=== PATIENT | female | born 1935 | race Caucasian/White ===

== ENCOUNTER 2017-02-26 12:35 | Emergency (ER) | payer MEDICARE, OTHER ==
[2017-02-26 13:11] LABS: #Basophils 0.1 thou/uL (0.0-0.2); #Eosinphils 0.4 thou/uL (0.0-0.7); #Lymphocytes 1.8 thou/uL (1.20-3.40); #Monocytes 0.9 thou/uL (0.11-0.59); #Neutrophils 4.8 thou/uL (1.40-6.50); %Eosinophils 5.5 % (0.0-10.0); %Lymphocytes 22.5 % (21.0-51.0); %Monocytes 11.3 % (0.0-10.0); Hematocrit 40.5 % (36.0-47.0); Mean Platelet Volume 6.7 fL (7.4-10.4); Red Blood Cell (RBC) Count 4.37 mill/uL (4.20-5.40); White Blood Cell (WBC) Count 8.1 thou/uL (4.8-10.8)
[2017-02-26 13:47] LABS: Lactic Acid - Sepsis 1.4 mmol/L (0.5-2.2)
[2017-02-26 13:49] LABS: ALT (SGPT) 11 U/L (8-55); AST (SGOT) 22 U/L (5-34); Alkaline Phosphatase 100 U/L (40-150); Anion Gap 16 mmol/L (10-20); BUN (Urea Nitrogen) 12 mg/dL (9.8-20.1); Bilirubin, Total 0.6 mg/dL (0.2-1.2); CK (CPK) 35 U/L (29-168); Calc. Creatinine Clearance 0 mL/min (70-130); Calcium 10.1 mg/dL (7.8-10.44); Carbon Dioxide 29 mmol/L (23-31); Chloride 97 mmol/L (98-107); Estimated GFR-MDRD 72; Globulin 3.2 g/dL (2.4-3.5); Protein, Total 7.4 g/dL (6.0-8.3)
[2017-02-26 13:53] LABS: Troponin I 0.016 ng/mL (< 0.028)
--- NOTE | 2017-02-26 14:05 | RAD ---
PORTABLE AP CHEST: Date: 02/26/17 HISTORY: Weakness and cough. COMPARISON: 10/31/16. FINDINGS: The cardiac silhouette is magnified by projection. Pulmonary vasculature is within normal limits. Viky ngs are clear. Vascular calcifications seen in thoracic aorta. There has been no significant interva l change compared to the prior exam. There is osteopenia. IMPRESSION: No acute cardiopulmonary process. POS: [facility]
[2017-02-26 15:21] LABS: Bilirubin Negative (Negative); Blood, Urine Moderate (Negative); Glucose, Urine (Dipstick) Negative (Negative); Ketone, Urine Negative (Negative); Nitrite Negative (Negative); Protein, Urine (Dipstick) Negative (Neg-Trace); Urobilinogen 0.2 mg/dL (0.2-1.0)
[2017-02-26 15:23] LABS: Bacteria/HPF None Seen HPF (None Seen); Hyaline Casts/LPF 0-3 HYALINE CAST LPF (0-3 Hyaline); Squamous Epithelial 0-3 HPF (0-3); WBC/HPF None Seen HPF (0-3)
== END 2017-02-26 16:50 | disposition home or self-care (01) ==
LOC: ERS 12:35
DX: R53.1 Weakness (principal); I10 Essential (primary) hypertension; I69.351 Hemiplegia and hemiparesis following cerebral infarction affecting right dominant side; J44.9 Chronic obstructive pulmonary disease, unspecified; F32.9 Major depressive disorder, single episode, unspecified; F17.210 Nicotine dependence, cigarettes, uncomplicated; Z85.42 Personal history of malignant neoplasm of other parts of uterus; Z79.899 Other long term (current) drug therapy
CPT/HCPCS: 36415; 51701; 71010; 80053; 81003; 81015; 82553; 83605; 84484; 85025; 87040; 87077; 87149; 93005; 96360; 96361; A4353

== ENCOUNTER 2017-04-17 14:16 | Inpatient (IN) | payer MEDICARE, OTHER ==
[~2017-04-17 14:16] MED LIST: ISOVUE-370 76%-LOCM 1 ML ONE
[2017-04-17 15:14] LABS: #Basophils 0.1 thou/uL (0.0-0.2); #Eosinphils 0.2 thou/uL (0.0-0.7); #Lymphocytes 1.7 thou/uL (1.20-3.40); #Neutrophils 13.9 thou/uL (1.40-6.50); %Basophils 0.7 % (0.0-1.0); %Eosinophils 1.1 % (0.0-10.0); %Lymphocytes 10.2 % (21.0-51.0); %Monocytes 5.6 % (0.0-10.0); Hematocrit 43.2 % (36.0-47.0); Mean Platelet Volume 7.1 fL (7.4-10.4); Red Blood Cell (RBC) Count 4.58 mill/uL (4.20-5.40); White Blood Cell (WBC) Count 16.9 thou/uL (4.8-10.8)
[2017-04-17 15:18] LABS: Bilirubin Negative (Negative); Blood, Urine Negative (Negative); Glucose, Urine (Dipstick) Negative (Negative); Ketone, Urine Negative (Negative); Nitrite Negative (Negative); Protein, Urine (Dipstick) Negative (Neg-Trace)
[2017-04-17 15:20] LABS: Bacteria/HPF None Seen HPF (None Seen); Hyaline Casts/LPF 0-3 HYALINE CAST LPF (0-3 Hyaline); RBC/HPF 0-3 HPF (0-3); Squamous Epithelial 0-3 HPF (0-3)
[2017-04-17 15:40] LABS: ALT (SGPT) 14 U/L (8-55); AST (SGOT) 30 U/L (5-34); Alkaline Phosphatase 102 U/L (40-150); Anion Gap 16 mmol/L (10-20); BUN (Urea Nitrogen) 15 mg/dL (9.8-20.1); Bilirubin, Total 0.9 mg/dL (0.2-1.2); Calc. Creatinine Clearance 0 mL/min (70-130); Calcium 10.1 mg/dL (7.8-10.44); Carbon Dioxide 25 mmol/L (23-31); Chloride 96 mmol/L (98-107); Estimated GFR-MDRD 57; Lipase 23 U/L (8-78); Protein, Total 7.3 g/dL (6.0-8.3)
[2017-04-17] MEDS ORDERED: Ondansetron HCl/PF 4 MG/2 ML Vial ONE (16:15)
[2017-04-17] MEDS ORDERED: Dicyclomine 20 MG TAB ONE (16:42)
--- NOTE | 2017-04-17 17:09 | CT ---
ABDOMEN AND PELVIC CT SCAN WITH IV CONTRAST: HISTORY: An 81-year-old female with abdominal pain, nausea, and vomiting and diarrhea. COMPARISON: 04/09/16. The lung bases are clear. There is generalized aneurysmal dilatation of the descending thoracic aort a and abdominal aorta with a focal aneurysmal dilatation measuring up to 3.8 cm of the inferior abdom inal aorta which is stable from the prior study of 04/09/16. The liver, gallbladder, pancreas, spleen, and adrenal glands are unremarkable. No renal calculus or acute obstruction. Small renal low-attenuation changes, probably small cysts and/or some minimal cortical scarring. There is some abnormal thickening of the colonic wall from the sigmoid including the entire sigmoid colon and left colon and splenic flexure and transverse colon to the level of the hepatic flexure, evidence for nonspecific colitis. This is a new finding when compared to the study. There is some fluid and gas distention in the stomach. Right iliac artery stent. No absc ess or significant abnormal fluid collection. IMPRESSION: Fairly marked diffuse colonic wall thickening involving transverse colon, splenic flexure, left colon , sigmoid colon to the rectosigmoid region with relative sparing of the right colon, evidence for non specific colitis, new from prior study. Stable abdominal aortic aneurysm up to 3.8 cm. No abscess o r abnormal fluid collection within the abdomen or pelvis. Other stable findings from prior study. POS: [facility]
[2017-04-17] MEDS ORDERED: metroNIDAZOLE 500 MG/100 ML BAG ONE (18:49)
[2017-04-17 19:11] LABS: Lactic Acid - Sepsis 1.5 mmol/L (0.5-2.2)
[2017-04-18] MEDS ORDERED: Ondansetron HCl/PF 4 MG/2 ML Vial IVP PRN (02:02)
[2017-04-18] MEDS ORDERED: Acetaminophen 325 MG TAB PO PRN ×2 (02:02→14:16)
[2017-04-18] MEDS ORDERED: Ondansetron ODT 4 MG TAB SL PRN (02:02)
[2017-04-18] MEDS ORDERED: Sodium Chloride 0.9% 1,000 ML IV SCH (02:15)
[2017-04-18] MEDS ORDERED: FLU VACC TS2017-18 (>65YR) 0.5 ML SYRINGE IM ONE (09:00)
[2017-04-18 13:24] LABS: #Basophils 0.1 thou/uL (0.0-0.2); #Eosinphils 0.1 thou/uL (0.0-0.7); #Monocytes 1.1 thou/uL (0.11-0.59); #Neutrophils 12.6 thou/uL (1.40-6.50); %Basophils 0.5 % (0.0-1.0); %Eosinophils 0.6 % (0.0-10.0); %Lymphocytes 12.8 % (21.0-51.0); %Monocytes 6.8 % (0.0-10.0); Hematocrit 31.8 % (36.0-47.0); Mean Platelet Volume 6.6 fL (7.4-10.4); Red Blood Cell (RBC) Count 3.39 mill/uL (4.20-5.40); White Blood Cell (WBC) Count 15.9 thou/uL (4.8-10.8)
[2017-04-18 13:41] LABS: ALT (SGPT) 8 U/L (8-55); AST (SGOT) 17 U/L (5-34); Alkaline Phosphatase 68 U/L (40-150); Anion Gap 9 mmol/L (10-20); BUN (Urea Nitrogen) 13 mg/dL (9.8-20.1); Bilirubin, Total 0.6 mg/dL (0.2-1.2); Calc. Creatinine Clearance 37 mL/min (70-130); Calcium 8.7 mg/dL (7.8-10.44); Carbon Dioxide 23 mmol/L (23-31); Chloride 105 mmol/L (98-107); Estimated GFR-MDRD 76; Globulin 2.1 g/dL (2.4-3.5); Magnesium 1.7 mg/dL (1.6-2.6); Phosphorus 2.4 mg/dL (2.3-4.7); Protein, Total 5.3 g/dL (6.0-8.3)
[2017-04-18] MEDS ORDERED: cloNIDine 0.1 MG TAB PO PRN (14:06)
[2017-04-18] MEDS ORDERED: Nitroglycerin 0.4 MG TAB (25 Tab Bottle) SL PRN (14:06)
[2017-04-18] MEDS ORDERED: Acetaminophen 500 MG TAB PO PRN (14:06)
[2017-04-18] MEDS ORDERED: Mag-Al 1200 mg/1200 mg/30 ML UDCUP PO PRN (14:06)
[2017-04-18] MEDS ORDERED: rOPINIRole HCl 0.25 MG TAB PO SCH (14:15)
[2017-04-18] MEDS: NS 0.9% w/ 20 MEQ KCL 1,000 ML/1,000 ML BAG IV SCH (14:54)
--- NOTE | 2017-04-18 15:04 | HP ---
DATE OF ADMISSION: 04/17/2017 PRIMARY CARE PHYSICIAN: Puma Lewis M.D. PRIMARY BARGE WORKER: Dr. Vaca. CODE STATUS: FULL CODE. SURROGATE DECISION-MAKER: Patient makes her on own decisions with the help of her /family. CHIEF COMPLAINT: Abdominal discomfort with nausea, vomiting, and diarrhea. HISTORY OF PRESENT ILLNESS: Patient is an 81-year-old white female with ischemic colitis in the past , presented to the emergency room with above complaints. Patient currently resides at the assisted l iving facility ([facility]). Over the last 24 hours, patient developed gradual worsening nausea and vomiting along with diarrhea. She also had abdominal discomfort that was more or less generalized, 6/10, without any aggravating o r relieving factor. She had several episodes of vomiting that contained food which she had eaten. S he also had diarrhea that was watery without any blood. She denies any sick contacts, fevers or chil ls. She has a history of ischemic colitis in the past. In the emergency room, initial vital signs showed temperature 98.6, respirations 20, pulse of 99, and blood pressure of 158/76 with O2 saturation of 97% on room air. Her CT scan of the abdomen and pelv is was consistent with diffuse colonic wall thickening involving the transverse colon, splenic flexur e, left colon, sigmoid colon to the rectosigmoid region with relative sparing of the right colon. Sh shanti received IV fluids with ciprofloxacin and Flagyl in the Emergency Room. Her labs were consistent w ith WBC of 16.9 with 82.5% neutrophils. Lactic acid was normal. PAST MEDICAL HISTORY: 1. Ischemic colitis. 2. COPD. 3. Chronic respiratory failure, on home oxygen. 4. History of abdominal aortic aneurysm. 5. Peripheral vascular disease. 6. Anxiety and depression. 7. Mild dementia. 8. Dyslipidemia. 9. Hypertension. 10. Restless legs syndrome. PAST SURGICAL HISTORY: 1. Right femoral stent placement. 2. Hysterectomy. 3. Bilateral eye surgery. 4. Removal of skin cancer. ALLERGIES: Patient is allergic to ALBUTEROL, BUDESONIDE, and FORMOTEROL. CURRENT HOME MEDICATIONS: Patient does not remember any of her home medications. Family to obtain a ccurate list of medications. SOCIAL HISTORY: She continues to smoke on and off up to 3-4 cigarettes a day. She drinks alcohol so cially. No drug use. FAMILY HISTORY: Negative for heart disease or GI malignancies. REVIEW OF SYSTEMS: The following complete review of systems was negative, unless otherwise mentioned in the HPI or below: Constitutional: Weight loss or gain, ability to conduct usual activities. Skin: Rash, itching. Eyes: Double vision, pain. ENT/Mouth: Nose bleeding, neck stiffness, pain, tenderness. Cardiovascular: Palpitations, dyspnea on exertion, orthopnea. Respiratory: Shortness of breath, wheezing, cough, hemoptysis, fever or night sweats. Gastrointestinal: Poor appetite, abdominal pain, heartburn, nausea, vomiting, constipation, or diarr hea. Genitourinary: Urgency, frequency, dysuria, nocturia. Musculoskeletal: Pain, swelling. Neurologic/Psychiatric: Anxiety, depression. Allergy/Immunologic: Skin rash, bleeding tendency. PHYSICAL EXAMINATION: VITAL SIGNS: As discussed above. GENERAL: An 81-year-old female in no apparent distress. Feels generally weak. HEENT: Head is atraumatic, normocephalic. Sclerae are anicteric. Dry mucous membrane, no oral lesi on. NECK: Supple, no JVD appreciated. No carotid bruit. LUNGS: Clear to auscultation bilaterally with scattered rhonchi, no wheezing. HEART: S1 and S2 present. Regular rate and rhythm. No heaves or pulsation. ABDOMEN: Soft, mild generalized tenderness without any rebound or guarding. No costovertebral angle tenderness. EXTREMITIES: No edema or calf tenderness. NEUROLOGIC: Grossly nonfocal, moves all four extremities. PSYCHIATRY: Alert, awake, oriented x3. SKIN: Warm and dry. LYMPH NODES: No palpable lymph nodes in the neck. PERIPHERAL VASCULAR: Radial pulses palpable bilaterally. MUSCULOSKELETAL: No joint swelling or tenderness. LABORATORY DATA AND X-RAY FINDINGS: Lab findings as discussed above. Creatinine was 0.94 with BUN 1 5 and sodium of 133[address] CT scan of the abdomen and pelvis by my review as discussed above. Blood cultu res were sent. EKG by my review showed sinus rhythm with nonspecific ST-T wave changes. IMPRESSION AND PLAN: 1. Sepsis secondary to colitis, suspected ischemic versus infectious. 2. Dehydration. 3. Hyponatremia. 4. Senile dementia. 5. Mild protein calorie malnutrition. 6. Chronic kidney disease stage 2. 7. History of ischemic colitis in the past. 8. Anxiety and depression. 9. Hypertension. 10. Dyslipidemia. 11. Chronic obstructive pulmonary disease. 12. Chronic respiratory failure, on home oxygen. 13. Peripheral vascular disease. 14. History of abdominal aortic aneurysm. 15. Restless legs syndrome. 16. Ongoing tobacco abuse. The patient was counseled. PLAN: The patient will be monitored on the medical floor. Gastroenterology will be consulted. We w ill continue Cipro and Flagyl. We will resume selected home medications. Gentle intravenous hydrati on. Repeat labs in a.m. Plan of care was discussed with the patient. She stated understanding.
[2017-04-18] MEDS: Ipratropium Bromide 2.5 ml Neb NEB SCH ×2 (19:03→23:19)
[2017-04-18] MEDS: Arformoterol 15 MCG/2 ML NEB NEB SCH (19:05)
[2017-04-18] MEDS: Famotidine 20 MG TAB PO SCH (20:15)
[2017-04-18] MEDS: Heparin 5,000 UNITS/ML VIAL SC SCH (20:16)
[2017-04-18] MEDS: rOPINIRole HCl 0.25 MG TAB PO SCH (20:16)
[2017-04-18] MEDS ORDERED: ROPINIROLE HCL 0.25 MG PO SCH (21:00)
[2017-04-18] MEDS: metroNIDAZOLE 500 MG in Premix Bag 1 BAG IVPB SCH (22:59)
[2017-04-19] MEDS: NS 0.9% w/ 20 MEQ KCL 1,000 ML/1,000 ML BAG IV SCH ×2 (01:05→19:44)
--- NOTE | 2017-04-19 01:38 | CON ---
DATE OF CONSULTATION: 04/18/2017 CHIEF COMPLAINT: Abdominal pain. HISTORY OF PRESENT ILLNESS: Ms. Emerson is an 81-year-old woman who has had some lower abdominal pres sure type discomfort over the last week, however, developed more severe sharp pain in the left lower abdomen yesterday. She had nausea and vomiting associated with this yesterday, but no vomiting today . She developed diarrhea with multiple liquidy nonbloody stools per day; however, she is unable to q uantify this further. She has a history of COPD and continues to smoke. She has a history of periph eral vascular disease as well. She had ischemic colitis confirmed by endoscopic findings and biopsie s back in 2011. She is already feeling better after receiving IV fluids in the hospital. PAST MEDICAL HISTORY: Ischemic colitis, COPD, chronic respiratory failure on home oxygen, history of abdominal aortic aneurysm, mild dementia, peripheral vascular disease, dyslipidemia, hypertension. PAST SURGICAL HISTORY: Right femoral stent, hysterectomy, eye surgery, skin cancer removed. FAMILY HISTORY: Negative for GI malignancies. SOCIAL HISTORY: No alcohol or drugs. She smokes a few cigarettes per day. ALLERGIES: ALBUTEROL, BUDESONIDE and FORMOTEROL. HOME MEDICATIONS: Include ropinirole, memantine, sertraline, polyethylene glycol, Spiriva, Zocor, pa ntoprazole, losartan, Brovana, folic acid, clonidine, docusate, tramadol as needed. REVIEW OF SYSTEMS: Negative x10 systems reviewed except as stated in the history of present illness. PHYSICAL EXAMINATION: VITAL SIGNS: Temperature 98.3, pulse 88, blood pressure 175/80. GENERAL: She is in no acute distress. She is awake and alert. HEENT: Eyes have no scleral icterus. Oropharynx is clear without lesions. NECK: No cervical or supraclavicular lymphadenopathy. LUNGS: Clear to auscultation bilaterally. HEART: Regular rate and rhythm. ABDOMEN: Soft. She is tender to palpation throughout the lower abdomen without guarding. Bowel tabatha nds are present. EXTREMITIES: No lower extremity edema. I reviewed her stool in the bedside commode and she has small amount of loose green stool. This was mixed with urine and was unable to be captured for stool studies. LABORATORY DATA: White blood cell count 15.9, hemoglobin 10.4, platelets 211. Her hemoglobin decrea sed from 13.6 on the initial presentation yesterday to 10.4 today after hydration. Creatinine 0.73 d own from 0.94 yesterday, bilirubin 0.6, AST 17, ALT 8, albumin 3.2. IMAGING: CT scan of the abdomen and pelvis showed colon wall thickening involving the transverse, sp lenic flexure, descending, and sigmoid colon. IMPRESSION: Recurrent ischemic colitis. She is clinically improving after hydration. She has no bl eeding associated with this at this point. Her last colonoscopy was in 2011 and showed endoscopic fi ndings with ischemic changes in the same distribution as the thickening noted by the CT now. Biopsie s confirmed ischemic colitis and repeat endoscopy would not be expected to change booth attendant at this time. RECOMMENDATIONS: 1. Stool studies. 2. IV fluids and antibiotics. She is on Cipro and metronidazole now. A 7-day course of antibiotics should be plenty. 3. Continue to follow the trend of her white blood cell count and hemoglobin.
[2017-04-19] MEDS: metroNIDAZOLE 500 MG in Premix Bag 1 BAG IVPB SCH ×3 (05:02→22:47)
[2017-04-19 05:42] LABS: #Eosinphils 0.3 thou/uL (0.0-0.7); #Lymphocytes 1.6 thou/uL (1.20-3.40); #Monocytes 0.7 thou/uL (0.11-0.59); #Neutrophils 6.9 thou/uL (1.40-6.50); %Basophils 0.5 % (0.0-1.0); %Eosinophils 3.2 % (0.0-10.0); %Lymphocytes 16.5 % (21.0-51.0); Hematocrit 30.3 % (36.0-47.0); Mean Platelet Volume 8.2 fL (7.4-10.4); Red Blood Cell (RBC) Count 3.18 mill/uL (4.20-5.40); White Blood Cell (WBC) Count 9.5 thou/uL (4.8-10.8)
[2017-04-19 06:09] LABS: ALT (SGPT) Less than 7 U/L (8-55); AST (SGOT) 18 U/L (5-34); Alkaline Phosphatase 60 U/L (40-150); Anion Gap 5 mmol/L (10-20); BUN (Urea Nitrogen) 6 mg/dL (9.8-20.1); Bilirubin, Total 0.6 mg/dL (0.2-1.2); Calc. Creatinine Clearance 45 mL/min (70-130); Calcium 8.3 mg/dL (7.8-10.44); Carbon Dioxide 26 mmol/L (23-31); Chloride 104 mmol/L (98-107); Estimated GFR-MDRD Greater than 90; Globulin 2.2 g/dL (2.4-3.5); Protein, Total 4.9 g/dL (6.0-8.3)
[2017-04-19] MEDS: Ipratropium Bromide 2.5 ml Neb NEB SCH ×3 (06:20→18:37)
[2017-04-19] MEDS: Arformoterol 15 MCG/2 ML NEB NEB SCH ×2 (06:22→18:38)
[2017-04-19] MEDS: Famotidine 20 MG TAB PO SCH ×2 (08:49→20:13)
[2017-04-19] MEDS: Cyanocobalamin (Vitamin B-12) 1,000 MCG TAB PO SCH (08:49)
[2017-04-19] MEDS: Folic Acid 1 MG TAB PO SCH (08:49)
[2017-04-19] MEDS: rOPINIRole HCl 0.25 MG TAB PO SCH ×2 (08:49→20:14)
[2017-04-19] MEDS: Heparin 5,000 UNITS/ML VIAL SC SCH ×2 (08:51→20:14)
[2017-04-19] MEDS: Acetaminophen/Codeine 30-300mg Tablet PO PRN ×2 (08:56→14:06)
[2017-04-19] MEDS ORDERED: Non-Formulary Item 1 EACH (Sertraline Hcl [Zoloft] 50 MG) PO SCH (09:00)
[2017-04-19] MEDS ORDERED: Spiriva 18 MCG CAP (Box of 5 Caps) INH SCH (09:00)
--- NOTE | 2017-04-19 19:57 | PRG ---
DATE OF SERVICE: 04/19/2017 SUBJECTIVE: Ms. Emerson is feeling better today. She has had no nausea or vomiting. She has had no further diarrhea today. OBJECTIVE: VITAL SIGNS: Temperature 97.2, pulse 64, blood pressure 119/62. LABORATORY DATA: White blood cell count is down to 9.5. IMPRESSION: 1. Ischemic colitis, clinically improved with IV fluids and antibiotics. Her diarrhea has resolved and she has been unable to turn in stool samples for the stool studies. RECOMMENDATIONS: 1. Advance to a low fiber diet. 2. Complete a 7-day course of ciprofloxacin and Flagyl. If she tolerates the solid diet well, then her antibiotics can be changed to oral administration. 3. Follow up with Dr. Vaca in 1 month. 4. I will sign off for now. Please call Dr. Borjas if needed over the weekend. Once the patient is tolerating an adequate diet and her abdominal pain continues to improve and her stool output impr oves, then she should be ready for discharge home.
--- NOTE | 2017-04-19 20:00 | PDOC.PN ---
- Subjective Encounter Start Date: 04/19/17 Encounter Start Time: 09:30 Patient seen and examined. Abd discomfort - gen. No overnight events - Objective Resuscitation Status: Resuscitation Status FULL:Full Resuscitation MAR Reviewed: Yes Vital Signs & Weight: Vital Signs (12 hours) Temp Pulse Resp BP Pulse Ox Pulse Ox Pulse Ox 04/19/17 18:37 64 16 95 04/19/17 12:11 71 16 96 04/19/17 09:38 97 96 04/19/17 08:00 97.2 F L 64 16 119/62 99 Weight Admit Weight 83 lb 9.6 oz Weight 88 lb 12.8 oz I&O: 04/18/17 04/19/17 04/20/17 06:59 06:59 06:59 Intake Total 1155 800 Output Total 650 Balance 1155 150 Result Diagrams: 04/19/17 04:46 04/19/17 04:46 Phys Exam - Physical Examination Constitutional: NAD Respiratory: no wheezing, no rhonchi Cardiovascular: RRR, no rub Gastrointestinal: soft, non-tender, positive bowel sounds Musculoskeletal: no edema Neurological: moves all 4 limbs Dx/Plan - Plan PT/OT, DVT proph w/heparin, DVT proph w/SCDs IMPRESSION AND PLAN: 1. Sepsis secondary to colitis, suspected ischemic versus infectious. - on Cipro/Flagyl - GI following 2. Dehydration. 3. Hyponatremia. 4. Senile dementia. 5. Mild protein calorie malnutrition. 6. Chronic kidney disease stage 2. 7. History of ischemic colitis in the past. 8. Anxiety and depression. 9. Hypertension. 10. Dyslipidemia. 11. Chronic obstructive pulmonary disease. 12. Chronic respiratory failure, on home oxygen. 13. Peripheral vascular disease. 14. History of abdominal aortic aneurysm. 15. Restless legs syndrome. 16. Ongoing tobacco abuse. The patient was counseled. PLAN: * Cont IV fluids/Atbx * GI following * Await stool studies * Cont current meds as below * AM labs Review of Systems - Review of Systems Respiratory: negative: Cough, Dry, Shortness of Breath, Hemoptysis, SOB with Excertion, Pleuritic Pain, Sputum, Wheezing Cardiovascular: negative: Chest Pain, Palpitations, Orthopnea, Paroxysmal Noc. Dyspnea, Edema, Light Headedness - Medications/Allergies Allergies/Adverse Reactions: Allergies Allergy/AdvReac Type Severity Reaction Status Date / Time albuterol Allergy Verified 12/06/17 19:39 budesonide Allergy Verified 04/17/17 19:39 formoterol [From Symbicort] Allergy Verified 04/17/17 19:39 Medications: Current Medications Acetaminophen (Tylenol) 650 mg PO Q4H PRN PRN Reason: Headache/Fever or Pain Acetaminophen/Codeine Phosphate (Tylenol #3) 1 tab PO Q6H PRN PRN Reason: pain Last Admin: 04/19/17 14:06 Dose: 1 tab Al Hydroxide/Mg Hydroxide (Maalox) 30 ml PO Q6H PRN PRN Reason: Heartburn or Indigestion Arformoterol Tartrate (Brovana) 15 mcg NEB BID-RT [facility] Last Admin: 04/19/17 18:38 Dose: 15 mcg Clonidine (Catapres) 0.1 mg PO Q4H PRN PRN Reason: SBP GREATER THAN 160 Last Admin: 04/19/17 02:47 Dose: 0.1 mg Cyanocobalamin (Vitamin B-12) 1,000 mcg PO DAILY [facility] Last Admin: 04/19/17 08:49 Dose: 1,000 mcg Famotidine (Pepcid) 20 mg PO BID [facility] Last Admin: 04/19/17 08:49 Dose: 20 mg Folic Acid (Folvite) 1 mg PO DAILY [facility] Last Admin: 04/19/17 08:49 Dose: 1 mg Heparin Sodium (Porcine) (Heparin) 5,000 units SC BID [facility] Last Admin: 04/19/17 08:51 Dose: 5,000 units Potassium Chloride/Sodium Chloride (Ns 0.9% W/ 20 Meq Kcl) 1,000 ml in 1,000 mls @ 75 mls/hr IV .[id number] [facility] Last Admin: 04/19/17 19:44 Dose: 1,000 mls Ciprofloxacin/Dextrose 400 mg/ (Device) 200 mls @ 200 mls/hr IVPB Q12HR [facility] Last Admin: 04/19/17 08:45 Dose: 200 mls Metronidazole 500 mg/ Device 100 mls @ 100 mls/hr IVPB Q8HR [facility] Last Admin: 04/19/17 14:03 Dose: 100 mls Ipratropium [place] (Atrovent) 2.5 ml NEB [id number] [facility] Last Admin: 12/08/17 18:37 Dose: 2.5 ml Memantine (Namenda) 10 mg PO BID [facility] Last Admin: 04/19/17 08:48 Dose: 10 mg Nitroglycerin (Nitrostat) 0.4 mg SL Q5MIN PRN PRN Reason: Chest Pain Ropinirole HCl (Requip) 0.25 mg PO BID [facility] Last Admin: 04/19/17 08:49 Dose: 0.25 mg Sertraline HCl (Zoloft) 50 mg PO DAILY [facility] Last Admin: 04/19/17 08:49 Dose: 50 mg Sodium Chloride (Flush - Normal Saline) 10 ml IVF Q12HR [facility] Last Admin: 04/19/17 08:51 Dose: Not Given Sodium Chloride (Flush - Normal Saline) 10 ml IVF PRN PRN PRN Reason: Saline Flush Tramadol HCl (Ultram) 50 mg PO Q6HR PRN PRN Reason: Pain
[2017-04-19] MEDS: traMADol HCl 50 MG TAB PO PRN (22:47)
[2017-04-20] MEDS: Ipratropium Bromide 2.5 ml Neb NEB SCH ×4 (00:30→18:36)
[2017-04-20] MEDS: NS 0.9% w/ 20 MEQ KCL 1,000 ML/1,000 ML BAG IV SCH ×3 (05:55→19:00)
[2017-04-20] MEDS: metroNIDAZOLE 500 MG in Premix Bag 1 BAG IVPB SCH ×3 (05:55→22:00)
[2017-04-20] MEDS: Arformoterol 15 MCG/2 ML NEB NEB SCH ×2 (06:41→18:38)
[2017-04-20 06:45] LABS: Anion Gap 13 mmol/L (10-20); BUN (Urea Nitrogen) 4 mg/dL (9.8-20.1); Calc. Creatinine Clearance 43 mL/min (70-130); Calcium 8.9 mg/dL (7.8-10.44); Carbon Dioxide 23 mmol/L (23-31); Chloride 101 mmol/L (98-107); Estimated GFR-MDRD Greater than 90
[2017-04-20] MEDS: Famotidine 20 MG TAB PO SCH ×2 (08:16→20:46)
[2017-04-20] MEDS: Heparin 5,000 UNITS/ML VIAL SC SCH ×2 (08:17→21:00)
[2017-04-20] MEDS: Folic Acid 1 MG TAB PO SCH (08:17)
[2017-04-20] MEDS: Cyanocobalamin (Vitamin B-12) 1,000 MCG TAB PO SCH (08:17)
[2017-04-20] MEDS: rOPINIRole HCl 0.25 MG TAB PO SCH ×2 (08:17→20:46)
--- NOTE | 2017-04-20 10:34 | PRG ---
DATE OF SERVICE: 04/20/2017 SUBJECTIVE: The patient is seen and examined at the bedside. She is feeling somewhat better. Her a bdominal pain has significantly improved. There is no nausea or vomiting anymore. She had 3 bowel m ovements last night, small ones and a stool sample was sent to the lab for further evaluation for lac toferrin cultures. Her appetite is poor. She is asking for some solid food. She does not want to t ivan clear liquids any more. OBJECTIVE: VITAL SIGNS: Blood pressure is 173/80, pulse is 82, respiratory rate is 18, O2 saturation is 94 and temperature is 97.4. HEENT: Her head is atraumatic, normocephalic. She looks tired and weak. Pupils are responding to l ight properly. Sclerae is nonicteric. Oral mucosa is dry. NECK: Supple, no lymphadenopathy. Thyroid is not palpable. LUNGS: Somewhat diminished at both bases. There are few crackles bilaterally. HEART: S1, S2 normal, no S3, no S4. ABDOMEN: Soft, nontender, bowel sounds are present, no organomegaly. EXTREMITIES: No clubbing, cyanosis or edema. NEUROLOGIC: She follows my commands. She is able to move her all 4 extremities. There is not any m otor or sensory deficit present. Cranial nerves intact. LABORATORY DATA: Showed sodium of 133, potassium 3.6, chloride 101, CO2 23, BUN 4, creatinine 0.62, glucose 88. Microbiology: Two blood cultures negative. IMPRESSION: 1. Ischemic colitis, improved on IV fluids and antibiotics. She is on Flagyl and Cipro. We will co ntinue that regimen. We would continue her IV fluids at 75 mL per hour. We will try to advance the diet if tolerated. 2. Dehydration. We will continue IV fluids. We will encourage p.o. intake. 3. Hyponatremia, improved. 4. Senile dementia on Namenda. 5. Chronic kidney disease stage 2, improved. 6. History of ischemic colitis. 7. Hypertension. I am going to restart her losartan 25 mg once a day since her systolic is running at 160s to 170s. 8. Chronic obstructive pulmonary disease. The patient is on Brovana and will continue p.r.n. DuoNe b. 9. Peripheral vascular disease. 10. History of abdominal aortic aneurysm. 11. Restless leg syndrome, on ropinirole. 12. Ongoing tobacco abuse prior to this hospitalization. 13. Dyslipidemia. PLAN: Continue IV antibiotics, most likely we will switch her to oral tomorrow if she is able to to lerate food without any problems and her diarrhea is under better control. She still had 3 bowel mov ements last night. We will check on her stool testing. We would start her on losartan as mentioned above and we will get PT and OT. We will continue her O2.
[2017-04-20] MEDS: traMADol HCl 50 MG TAB PO PRN (20:49)
[2017-04-21] MEDS: Ipratropium Bromide 2.5 ml Neb NEB SCH ×5 (02:19→22:18)
[2017-04-21] MEDS: metroNIDAZOLE 500 MG in Premix Bag 1 BAG IVPB SCH ×3 (05:00→21:15)
[2017-04-21] MEDS: Arformoterol 15 MCG/2 ML NEB NEB SCH ×3 (06:13→22:15)
[2017-04-21] MEDS: rOPINIRole HCl 0.25 MG TAB PO SCH ×2 (08:27→20:07)
[2017-04-21] MEDS: Heparin 5,000 UNITS/ML VIAL SC SCH ×2 (08:27→20:08)
[2017-04-21] MEDS: Folic Acid 1 MG TAB PO SCH (08:27)
[2017-04-21] MEDS: Famotidine 20 MG TAB PO SCH ×2 (08:27→20:07)
[2017-04-21] MEDS: Cyanocobalamin (Vitamin B-12) 1,000 MCG TAB PO SCH (08:27)
[2017-04-21] MEDS: NS 0.9% w/ 20 MEQ KCL 1,000 ML/1,000 ML BAG IV SCH ×2 (08:28→14:44)
[2017-04-21] MEDS ORDERED: Losartan Potassium 25 MG TAB PO SCH (09:00)
--- NOTE | 2017-04-21 10:00 | PRG ---
DATE OF SERVICE: 04/21/2017 SUBJECTIVE: The patient is seen and examined at bedside. She is doing better. She started eating a nd she does not have more diarrhea. She is still weak. She requires still assistance to get up and go to the bathroom. OBJECTIVE: VITAL SIGNS: Blood pressure is 163/75, pulse is 85, temperature is 98.0, respiratory rate is 14, O2 saturation is 95 on 1 liter by nasal cannula. GENERAL: She looks somewhat better, but still quite weak. HEENT: Sclerae nonicteric. Conjunctivae pinkish. Pupils respond to light properly. Oral mucosa is moist. NECK: Supple. LUNGS: Clear. HEART: S1, S2 normal, no S3, no S4. ABDOMEN: Soft, nontender, bowel sounds are present. EXTREMITIES: No clubbing, cyanosis or edema. NEUROLOGIC: She is awake, alert, and oriented x4. There is no sensorimotor deficit. Cranial nerves are intact. LABORATORY DATA: None. ASSESSMENT AND PLAN: 1. Ischemic colitis, improved with IV fluids and antibiotics. The patient is going to continue on F lagyl and Cipro. Continue IV fluids at 75 to over hydrate her and her diarrhea just stopped and abdo ryan pain stopped, but she is still very weak and needs a lot of assistance to function. 2. Dehydration, improved. We will continue IV fluids. 3. Hyponatremia, improved. 4. Senile dementia, on Namenda. 5. Chronic kidney disease stage 2, improved. 6. History of ischemic colitis. 7. Hypertension. It is still an issue. She was started on her losartan 25 mg once a day. I will g o up to 50, total dose daily. 8. Chronic obstructive pulmonary disease, stable on Brovana and p.r.n. DuoNebs. 9. Peripheral vascular disease, stable. 10. History of abdominal aortic aneurysm. 11. Restless leg syndrome, on ropinirole. 12. Ongoing tobacco abuse prior to this hospitalization, the patient was counseled about smoking ej sation benefits. 13. Dyslipidemia. PLAN: As mentioned above, we will keep her for an additional 24 hours. Continue PT. She is still q uite weak and she is high risk for falls if she is discharged too soon. She started eating and we ar e going to watch her for additional 24 hours and try to wean her O2.
[2017-04-21] MEDS: Losartan Potassium 25 MG TAB PO SCH (20:07)
[2017-04-22] MEDS: metroNIDAZOLE 500 MG in Premix Bag 1 BAG IVPB SCH ×3 (05:06→21:12)
[2017-04-22] MEDS: NS 0.9% w/ 20 MEQ KCL 1,000 ML/1,000 ML BAG IV SCH ×2 (05:08→07:49)
[2017-04-22] MEDS: Arformoterol 15 MCG/2 ML NEB NEB SCH ×2 (07:31→18:38)
[2017-04-22] MEDS: Ipratropium Bromide 2.5 ml Neb NEB SCH ×4 (07:33→23:36)
[2017-04-22] MEDS: Famotidine 20 MG TAB PO SCH ×2 (07:47→21:14)
[2017-04-22] MEDS: Losartan Potassium 25 MG TAB PO SCH ×2 (07:48→21:14)
[2017-04-22] MEDS: Cyanocobalamin (Vitamin B-12) 1,000 MCG TAB PO SCH (07:48)
[2017-04-22] MEDS: Folic Acid 1 MG TAB PO SCH (07:48)
[2017-04-22] MEDS: rOPINIRole HCl 0.25 MG TAB PO SCH ×2 (07:48→21:14)
[2017-04-22] MEDS: Heparin 5,000 UNITS/ML VIAL SC SCH ×2 (07:49→21:14)
--- NOTE | 2017-04-22 12:39 | PQF ---
CLINICAL DOCUMENTATION IMPROVEMENT CLARIFICATION FORM: ICD-10 Updated PLEASE DO AN ADDENDUM TO THE PROGRESS NOTE WITH ANY DOCUMENTATION UPDATES OR ADDITIONS AND CARRY THROUGH TO DC SUMMARY. THANK YOU. DATE: 04/22 ATTN: DR. YUE ZAPIEN Please exercise your independent, professional judgment in responding to the clarification form. Clinical indicators are provided on the bottom of this form for your review Please check appropriate box(s) to clarify if the following diagnosis has been ruled in our ruled out: SEPSIS 2/2 COLITIS [ ] Ruled in diagnosis [ ] Continue to treat [ ] Resolved [ x ] Ruled out diagnosis [ ] Other diagnosis [ ] Unable to determine In addition, please specify: Present on Admission (POA): [ x ] Yes [ ] No [ ] Unable to determine For continuity of documentation, please document condition throughout progress notes and discharge summary. Thank You. CLINICAL INDICATORS - SIGNS / SYMPTOMS / LABS ER PRESENTATION 04/17: T: 99.9 RR: 18-22 HR: 99-108 WBC: 16.9 PHYSICIAN H&P DOCUMENTATION 04/18: IMPRESSION/PLAN: 1. SEPSIS 2/2 COLITIS, SUSPECTED ISHCEMIC VS INFECTIOUS PHYSICIAN PN DATED 04/19: IMPRESSION/PLAN: 1. SEPSIS 2/2 COLLITIS, SUSPECTED ISCHEMIC VS INFECTIOUS CRP: 8.68 (04/19) NO FURTHER DOCUMENTATION OF SEPSIS TO DATE RISK FACTORS: HX OF ISCHEMIC COLITIS DIAGNOSIS OF ISCHEMIC COLITIS BY GI PUBLIC HEALTH CLINICAL NURSE SPECIALIST TREATMENTS: GI CONSULT IV ANTIBIOTIC (CIPRO 04/18 - PRESENT) THANK YOU! Palma (This form is maintained as a part of the permanent medical record) 2014 [employer]. All Rights Reserved Palma Anthony RN, BSN [email or web address] Office: [phone] [facility]
[2017-04-22 14:04] VITALS: BMI 15.7
--- NOTE | 2017-04-22 15:06 | PDOC.PN ---
- Subjective Encounter Start Date: 04/22/17 Encounter Start Time: 12:55 -: old records requested/rev Pt seen and examined, chart reviewed in its entirety. This is my first visit with this patient. C/P abd pain, stable, and weakness. walked 22ft with PT earlier. Discussed need for rehab, pt agreeable, and per CM has chosen [facility]. Referrals made, awaiting acceptance. No F/c, no n/v/d/c. no BM in 4 days, takes miralax at home. No cough or sputum production 10 point ROS performed and neg for all systems except as above - Objective Resuscitation Status: Resuscitation Status FULL:Full Resuscitation MAR Reviewed: Yes Vital Signs & Weight: Vital Signs (12 hours) Temp Pulse Resp BP Pulse Ox 04/22/17 08:00 99.2 F 85 16 176/97 H 96 04/22/17 07:33 90 16 04/22/17 04:00 98.4 F 85 16 164/93 H 97 Weight Admit Weight 83 lb 9.6 oz Weight 83 lb 4 oz I&O: 04/21/17 04/22/17 04/23/17 06:59 06:59 06:59 Intake Total 2350 2700 Output Total 500 0 Balance 1850 2700 Result Diagrams: 04/19/17 04:46 04/20/17 04:43 Radiology Reviewed by me: Yes EKG Reviewed by me: Yes Phys Exam - Physical Examination Constitutional: NAD HEENT: PERRLA, moist MMs, sclera anicteric, oral pharynx no lesions Neck: no nodes, no JVD, supple, full ROM Respiratory: no wheezing, no rales, no rhonchi, clear to auscultation bilateral Cardiovascular: RRR, no significant murmur, no rub Gastrointestinal: soft, non-tender, no distention, positive bowel sounds Musculoskeletal: no edema, pulses present Neurological: non-focal, normal sensation, moves all 4 limbs Lymphatic: no nodes Psychiatric: normal affect, A&O x 3 Skin: no rash, normal turgor, cap refill <2 seconds Dx/Plan (1) Ischemic colitis Code(s): K55.9 - VASCULAR DISORDER OF INTESTINE, UNSPECIFIED Status: Chronic Comment: better after rehydration. No intervention per GI (2) COPD (chronic obstructive pulmonary disease) Status: Chronic Qualifiers: COPD type: unspecified COPD Qualified Code(s): J44.9 - Chronic obstructive pulmonary disease, unspecified (3) Abdominal pain Code(s): R10.9 - UNSPECIFIED ABDOMINAL PAIN Status: Chronic Qualifiers: Abdominal location: generalized Qualified Code(s): R10.84 - Generalized abdominal pain (4) Hypertension Code(s): I10 - ESSENTIAL (PRIMARY) HYPERTENSION Status: Chronic Qualifiers: Hypertension type: essential hypertension Qualified Code(s): I10 - Essential (primary) hypertension (5) Protein-calorie malnutrition, moderate Code(s): E44.0 - MODERATE PROTEIN-CALORIE MALNUTRITION Status: Chronic - Plan cont current plan of care, PT/OT, social service manager * . to Rehab when arranged
[2017-04-23] MEDS: traMADol HCl 50 MG TAB PO PRN (00:05)
[2017-04-23] MEDS: NS 0.9% w/ 20 MEQ KCL 1,000 ML/1,000 ML BAG IV SCH ×2 (00:09→08:29)
[2017-04-23] MEDS: metroNIDAZOLE 500 MG in Premix Bag 1 BAG IVPB SCH ×2 (05:28→13:57)
[2017-04-23] MEDS: Arformoterol 15 MCG/2 ML NEB NEB SCH (06:42)
[2017-04-23] MEDS: Ipratropium Bromide 2.5 ml Neb NEB SCH (06:42)
[2017-04-23] MEDS: rOPINIRole HCl 0.25 MG TAB PO SCH (08:36)
[2017-04-23] MEDS: Famotidine 20 MG TAB PO SCH (08:36)
[2017-04-23] MEDS: Folic Acid 1 MG TAB PO SCH (08:36)
[2017-04-23] MEDS: Losartan Potassium 25 MG TAB PO SCH (08:36)
[2017-04-23] MEDS: Cyanocobalamin (Vitamin B-12) 1,000 MCG TAB PO SCH (08:36)
[2017-04-23] MEDS: Heparin 5,000 UNITS/ML VIAL SC SCH (09:18)
[2017-04-23 09:22] VITALS: BP 146/78; TEMP 98.3
--- NOTE | 2017-04-23 16:07 | DIS ---
DATE OF ADMISSION: 04/17/2017 DATE OF DISCHARGE: 04/23/2017 DISCHARGE DIAGNOSES: 1. Ischemic colitis. 2. Chronic abdominal pain. 3. Physical deconditioning. 4. Moderate dehydration. 5. Moderate protein calorie malnutrition. 6. Chronic obstructive pulmonary disease without acute exacerbation. 7. Essential hypertension. SEPSIS RULED OUT CONSULTATIONS: Gastroenterology, Dr. Joseph Arnold. PROCEDURES: None. HISTORY AND PHYSICAL: Ms. Emerson is an 81-year-old white female with known ischemic colitis, who presented to the Emergency Department with complaints of abdominal pain. She was worked up in the emergency department with abdomen and pelvis CT that showed colitis and the patient was subsequently admitted to our service. HOSPITAL COURSE: The patient was seen and examined by Dr. Rosales and admitted on 04/17/2017. She was started on Cipro and Flagyl, GI was consulted, and she was continued on home medications with gentle IV hydration. Overnight 04/17/2017 to 04/18/2017, the patient remained stable. She clinically improved. She was seen by Dr. Arnold who reviewed the CAT scan and noted that it was exactly the same as prior scans. He made no further plans to do any procedures and then recommended a 7-day course of Cipro and Flagyl. By 04/19/2017, the patient was feeling better. She was eating and tolerating diet and was worked with physical therapy, but still very weak. On 04/20/2017, the Hospitalist work was taken over by Dr. Johnson. He started losartan due to increased blood pressure and continued her respiratory medications. By 04/21/2017, she is breathing better and belly pain was still present, but tolerable. On 04/22/2017, I took over. The patient was doing better and arrangements were made for her to go to rehabilitation. On 04/23/2017, she was accepted to rehab and stable for discharge. DISPOSITION: The patient will be discharged to [facility] for rehabilitation. DISCHARGE CONDITION: Stable. FOLLOWUP APPOINTMENTS: 1. Primary care physician Dr. Lewis within a week. 2. GI per the clinic schedule. DISCHARGE DIET: As tolerated. DISCHARGE ACTIVITY: Per cardiopulmonary limits. MTDD
== END 2017-04-23 14:33 | DRG 394 ==
LOC: ERS 14:16 → T4-B 18:48
PROVIDERS: ADMIT Internal Medicine; ATTEND Internal Medicine
DX: K55.9 Vascular disorder of intestine, unspecified (principal); E87.1 Hypo-osmolality and hyponatremia; J96.10 Chronic respiratory failure, unspecified whether with hypoxia or hypercapnia; F03.90 Unspecified dementia, unspecified severity, without behavioral disturbance, psychotic disturbance, mood disturbance, and anxiety; E44.1 Mild protein-calorie malnutrition; Z68.1 Body mass index [BMI] 19.9 or less, adult; Z99.81 Dependence on supplemental oxygen; J44.9 Chronic obstructive pulmonary disease, unspecified; I73.9 Peripheral vascular disease, unspecified; F41.9 Anxiety disorder, unspecified; F32.9 Major depressive disorder, single episode, unspecified; E78.5 Hyperlipidemia, unspecified; G25.81 Restless legs syndrome; Z85.828 Personal history of other malignant neoplasm of skin; Z88.8 Allergy status to other drugs, medicaments and biological substances; F17.210 Nicotine dependence, cigarettes, uncomplicated; E86.0 Dehydration; I12.9 Hypertensive chronic kidney disease with stage 1 through stage 4 chronic kidney disease, or unspecified chronic kidney disease; N18.2 Chronic kidney disease, stage 2 (mild); I71.4 Abdominal aortic aneurysm, without rupture
CPT/HCPCS: 36415; 51701; 74177; 80048; 80053; 81003; 81015; 83605; 83690; 83735; 84100; 85025; 86140; 87040; 90471; 90682; 93005; 94640; 96361; 96365; 96375; A4216; A4353; G0008; G8978-GP-CK; G8979-GP-CI; G8987-GO-CJ; G8988-GO-CI; J0744; J1644; J2405; J7644; Q2036

== ENCOUNTER 2017-05-30 14:38 | Emergency (ER) | payer MEDICARE, OTHER ==
[2017-05-30 16:00] LABS: #Basophils 0.1 thou/uL (0.0-0.2); #Eosinphils 0.3 thou/uL (0.0-0.7); #Monocytes 0.8 thou/uL (0.11-0.59); #Neutrophils 7.3 thou/uL (1.40-6.50); %Basophils 0.5 % (0.0-1.0); %Eosinophils 2.8 % (0.0-10.0); %Lymphocytes 18.9 % (21.0-51.0); %Monocytes 7.8 % (0.0-10.0); %Neutrophils 70.1 % (42.0-75.0); Hemoglobin 11.3 g/dL (12.0-16.0); Mean Corpuscular HGB CONC 32.3 g/dL (32.0-36.0); Mean Corpuscular Volume 89.6 fl (81.0-99.0); Mean Platelet Volume 6.3 fL (7.4-10.4); Platelet Count 436 thou/uL (130-400); RBC Distribution Width 12.3 % (11.5-14.5); White Blood Cell (WBC) Count 10.4 thou/uL (4.8-10.8)
[2017-05-30 16:23] LABS: ALT (SGPT) 9 U/L (8-55); AST (SGOT) 21 U/L (5-34); Albumin 3.2 g/dL (3.4-4.8); Alkaline Phosphatase 89 U/L (40-150); Anion Gap 13 mmol/L (10-20); BUN (Urea Nitrogen) 10 mg/dL (9.8-20.1); Bilirubin, Total 0.3 mg/dL (0.2-1.2); Calc. Creatinine Clearance 0 mL/min (70-130); Calcium 9.6 mg/dL (7.8-10.44); Carbon Dioxide 27 mmol/L (23-31); Chloride 99 mmol/L (98-107); Estimated GFR-MDRD 63; Globulin 3.3 g/dL (2.4-3.5); Glucose 137 mg/dL (83-110); Lipase 20 U/L (8-78); Potassium 3.8 mmol/L (3.5-5.1); Protein, Total 6.5 g/dL (6.0-8.3); Sodium 135 mmol/L (136-145)
[2017-05-30 16:27] LABS: CKMB 1.5 ng/mL (0-6.6); Troponin I 0.015 ng/mL (< 0.028)
[2017-05-30] MEDS ORDERED: ISOVUE-370 76%-LOCM 1 ML ONE (16:31)
--- NOTE | 2017-05-30 17:58 | CT ---
CTA AORTIC DISSECTION PROTOCOL WITH 3D VOLUME RENDERING CT OF CHEST WITH CONTRAST CT OF ABDOMEN AND PELVIS WITH CONTRAST 05/30/17 CLINICAL HISTORY: Chest pain radiating to the back with history of abdominal aortic aneurysm. FINDINGS: There is diffuse atherosclerotic vascular disease. Motion artifact from patient motion during the kailey ging exam does limit the evaluation. There is no aneurysmal dilatation at the ascending thoracic aor ta. There is ectasia of the descending thoracic aorta measuring approximately 3.3 cm in diameter wit h irregular areas of eccentric plaque and probable developing areas of ulceration within noncalcified plaque. There is redemonstration of aneurysmal dilatation of the abdominal aorta at the level of th e infrarenal abdominal aorta which measures approximately 3.7 cm, grossly stable. Prominent degree of noncalcified intraluminal/mural based plaque is present with interspersed areas of hyperdensity. The re is stent of the right iliac artery which is grossly patent. There is diffuse atherosclerotic vascu lar disease again demonstrated which involves the origins of the major branch vessels of the abdomina l aorta as well as the course of the thoracoabdominal aorta and iliac arteries. Limited evaluation of the solid abdominal organs by arterial phase of enhancement . Prominent pulmona ry emphysema within the imaged pulmonary parenchyma as well as subpleural areas of honeycombing indic ative of fibrosis. There is a wedge shaped density of the right middle lobe favoring subsegmental ate lectasis. Mild left pleural fluid is present. There is constipation. Osseous degenerative change pres ent. There is redemonstration of a compression deformity of T12. Redemonstration of L5 compression de formity also seen. Compression deformities of the partially imaged thoracic spine at the T5 and T7 le lori are again seen. IMPRESSION: Redemonstration of extensive, diffuse atherosclerotic vascular disease with associated aneurysmal dil atation of the abdominal aorta, grossly stable in size measuring up to 3.7 cm in diameter. Redemonstration of multilevel thoracic and lumbar spine compression deformities. POS: [facility]
--- NOTE | 2017-06-15 14:13 | EKG ---
Test Reason : Blood Pressure : / mmHG Vent. Rate : 099 BPM Atrial Rate : 099 BPM P-R Int : 122 ms QRS Dur : 068 ms QT Int : 354 ms P-R-T Axes : 077 -41 040 degrees QTc Int : 454 ms Normal sinus rhythm with sinus arrhythmia Possible Left atrial enlargement Left axis deviation Abnormal ECG Confirmed by MYA DORANTES, SATHISH ([id number]), pictures editor BECK CASTANEDA ([id number]) on 06/15/2017 2:12:46 PM Referred By: Confirmed By:SATHISH ROQUE MD
== END 2017-05-30 18:43 | disposition home or self-care (01) ==
LOC: ERS 14:38
DX: R07.89 Other chest pain (principal); I10 Essential (primary) hypertension; Z86.73 Personal history of transient ischemic attack (TIA), and cerebral infarction without residual deficits; J44.9 Chronic obstructive pulmonary disease, unspecified; F17.210 Nicotine dependence, cigarettes, uncomplicated; Z79.899 Other long term (current) drug therapy
CPT/HCPCS: 36415; 71275; 80053; 82553; 83605; 83690; 84484; 85025; 93005; 99406

== ENCOUNTER 2017-06-28 10:18 | Emergency (ER) | payer MEDICARE, OTHER ==
[2017-06-28 11:34] LABS: #Basophils 0.1 thou/uL (0.0-0.2); #Eosinphils 0.2 thou/uL (0.0-0.7); #Lymphocytes 2.2 thou/uL (1.20-3.40); #Monocytes 0.5 thou/uL (0.11-0.59); #Neutrophils 4.9 thou/uL (1.40-6.50); %Basophils 1.2 % (0.0-1.0); %Eosinophils 2.5 % (0.0-10.0); %Lymphocytes 27.9 % (21.0-51.0); %Monocytes 6.2 % (0.0-10.0); %Neutrophils 62.2 % (42.0-75.0); Hemoglobin 12.1 g/dL (12.0-16.0); Mean Corpuscular HGB CONC 32.7 g/dL (32.0-36.0); Mean Corpuscular Volume 88.6 fl (81.0-99.0); Mean Platelet Volume 6.6 fL (7.4-10.4); Platelet Count 339 thou/uL (130-400); RBC Distribution Width 13.9 % (11.5-14.5); Red Blood Cell (RBC) Count 4.16 mill/uL (4.20-5.40); White Blood Cell (WBC) Count 7.9 thou/uL (4.8-10.8)
[2017-06-28 11:59] LABS: ALT (SGPT) 10 U/L (8-55); AST (SGOT) 22 U/L (5-34); Albumin 4.3 g/dL (3.4-4.8); Alkaline Phosphatase 116 U/L (40-150); Anion Gap 14 mmol/L (10-20); BUN (Urea Nitrogen) 12 mg/dL (9.8-20.1); Bilirubin, Total 0.5 mg/dL (0.2-1.2); Calc. Creatinine Clearance 0 mL/min (70-130); Calcium 10.3 mg/dL (7.8-10.44); Carbon Dioxide 29 mmol/L (23-31); Chloride 96 mmol/L (98-107); Estimated GFR-MDRD 69; Globulin 3.5 g/dL (2.4-3.5); Glucose 101 mg/dL (83-110); Protein, Total 7.8 g/dL (6.0-8.3); Sodium 135 mmol/L (136-145)
[2017-06-28 12:01] LABS: CKMB 2.4 ng/mL (0-6.6); Troponin I 0.012 ng/mL (< 0.028)
--- NOTE | 2017-07-27 14:22 | EKG ---
Test Reason : Blood Pressure : / mmHG Vent. Rate : 106 BPM Atrial Rate : 106 BPM P-R Int : 138 ms QRS Dur : 072 ms QT Int : 378 ms P-R-T Axes : 080 -60 068 degrees QTc Int : 502 ms Sinus tachycardia Possible Left atrial enlargement Left anterior fascicular block Abnormal ECG Confirmed by ENMANUEL MORRIS M.D. ([id number]), features editor FIDEL DEUTSCH ([id number]) on 07/27/2017 2:21:17 PM Referred By: Confirmed By:ENMANUEL MORRIS M.D.
== END 2017-06-28 12:45 | disposition home or self-care (01) ==
LOC: ERS 10:18
DX: R29.818 Other symptoms and signs involving the nervous system (principal); F32.9 Major depressive disorder, single episode, unspecified; F17.210 Nicotine dependence, cigarettes, uncomplicated; I10 Essential (primary) hypertension; I71.4 Abdominal aortic aneurysm, without rupture; J44.9 Chronic obstructive pulmonary disease, unspecified; Z86.73 Personal history of transient ischemic attack (TIA), and cerebral infarction without residual deficits; Z85.42 Personal history of malignant neoplasm of other parts of uterus; Z79.899 Other long term (current) drug therapy
CPT/HCPCS: 36415; 80053; 82553; 84484; 85025; 93005

== ENCOUNTER 2017-07-30 12:50 | Outpatient (CLI) | payer MEDICARE, OTHER ==
--- NOTE | 2017-07-30 13:24 | RAD ---
CHEST PA AND LATERAL: History: 81-year-old female with dyspnea. Comparison: Prior CT angiogram 05-30-17. FINDINGS: Again noted are extensive atherosclerotic ectatic and aneurysmal changes of the aorta, particularly t he descending aorta. Stable chronic lung changes. Stable bony demineralization with multiple thoracic vertebral bodies showing vertical height loss. IMPRESSION: Stable appearing chest. Atherosclerotic changes of the aorta with ectasia and dilatation. Chronic kenzie g changes. No new process. POS: C
== END 2017-07-30 12:51 | disposition home or self-care (01) ==
LOC: RAD 12:50
PROVIDERS: ATTEND Internal Medicine Critical Care Medicine
DX: R06.00 Dyspnea, unspecified (principal)
CPT/HCPCS: 71046

== ENCOUNTER 2017-10-10 12:34 | Outpatient (CLI) | payer MEDICARE, OTHER | END 2017-10-10 12:35 | disposition home or self-care (01) | LOC: CP 12:34 | PROVIDERS: ATTEND Internal Medicine Critical Care Medicine | DX: J44.9 Chronic obstructive pulmonary disease, unspecified (principal) | CPT/HCPCS: 94010 ==

== ENCOUNTER 2018-02-17 09:27 | Inpatient (IN) | payer MEDICARE, OTHER ==
[2018-02-17] MEDS ORDERED: Nitroglycerin 50 MG/250 ML BOT 250 ML ONE (09:38)
[2018-02-17] MEDS ORDERED: Nitroglycerin 0.4 MG TAB (25 Tab Bottle) ONE (09:38)
--- NOTE | 2018-02-17 10:13 | RAD ---
PORTABLE UPRIGHT FRONTAL CHEST RADIOGRAPH: Date: 02-17-18 Comparison: 02-26-17 History: Dyspnea. FINDINGS: There is atherosclerotic calcification of the descending thoracic aorta and aortic arch. There is increased linear interstitial density with pulmonary hyperinflation, suspicious for COPD in the proper clinical setting. There is a questionable irregular nodule in the midright lung zone measuring approximately 9 mm crani ocaudal dimension. IMPRESSION: Interstitial prominence and pulmonary hyperinflation suggests COPD in the proper clinical setting. Qu estionable small nodule noted in the mid right lung zone for which follow up CT examination of the ch est is advised. Code LN. POS: [facility]
[2018-02-17 10:25] LABS: #Basophils 0.1 thou/uL (0.0-0.2); #Eosinphils 0.3 thou/uL (0.0-0.7); #Lymphocytes 2.2 thou/uL (1.20-3.40); #Monocytes 0.6 thou/uL (0.11-0.59); #Neutrophils 5.6 thou/uL (1.40-6.50); %Eosinophils 3.1 % (0.0-10.0); %Lymphocytes 24.9 % (21.0-51.0); %Monocytes 6.8 % (0.0-10.0); %Neutrophils 64.2 % (42.0-75.0); Hemoglobin 11.8 g/dL (12.0-16.0); Mean Corpuscular HGB CONC 32.5 g/dL (32.0-36.0); Mean Corpuscular Hemoglobin 30.8 pg (27.0-31.0); Mean Corpuscular Volume 94.8 fL (78.0-98.0); Platelet Count 234 thou/uL (130-400); RBC Distribution Width 12.7 % (11.5-14.5); Red Blood Cell (RBC) Count 3.84 mill/uL (4.20-5.40); White Blood Cell (WBC) Count 8.7 thou/uL (4.8-10.8)
[2018-02-17 10:42] LABS: CKMB 2.9 ng/mL (0-6.6)
[2018-02-17 10:47] LABS: ALT (SGPT) 13 U/L (8-55); AST (SGOT) 31 U/L (5-34); Albumin 4.1 g/dL (3.4-4.8); Alkaline Phosphatase 90 U/L (40-150); Anion Gap 16 mmol/L (10-20); BUN (Urea Nitrogen) 16 mg/dL (9.8-20.1); Bilirubin, Total 0.5 mg/dL (0.2-1.2); Calc. Creatinine Clearance 0 mL/min (70-130); Calcium 9.9 mg/dL (7.8-10.44); Carbon Dioxide 23 mmol/L (23-31); Chloride 97 mmol/L (98-107); Estimated GFR-MDRD 77; Glucose 114 mg/dL (83-110); Potassium 4.5 mmol/L (3.5-5.1); Protein, Total 7.1 g/dL (6.0-8.3); Sodium 131 mmol/L (136-145)
[2018-02-17 11:25] LABS: Troponin I Less than 0.010 ng/mL (< 0.028)
--- NOTE | 2018-02-17 11:45 | CT ---
CTA CHEST WITH CONTRAST: Date: 02/17/18 Multiple axial tomograms obtained through the chest with IV enhancement following pulmonary angio pro tocol with multiplanar reconstruction and 3D postprocessing. INDICATION: Elevated D-Dimer. Shortness of breath. History of COPD. COMPARISON: CTA chest dated 08/08/16. FINDINGS: Pulmonary arteries show adequate enhancement. There is no evidence of pulmonary embolus. Review of the lung huizar again showed diffuse chronic lung parenchymal change with hyperexpansion an d emphysematous changes, most pronounced in the upper lungs with areas of bullous formation. There is a new 1.0 cm nodular density in the peripheral right upper lobe today when compared to exam of 08/08/16. Area of parenchymal opacification along the fissure on the right was described previously and appears to be a stable finding. Diffuse atherosclerotic changes involving the thoracic and upper abdominal aorta again noted. Aneurys mal dilatation of the lower thoracic aorta is again seen with diameter measuring up to 3.7 cm, stable from prior exam. However, the aneurysmal dilatation of the upper abdominal aorta appears to have enlarged when compare d to the prior study with maximal dimension today recorded at 5.0 cm width x 4.2 cm AP dimension. Pre vious width was recorded at 4.2 cm. IMPRESSION: 1. No evidence of pulmonary embolus. 2. A new 1.0 cm nodular mass in the right upper lobe. Consider further evaluation PET scan. 3. Parenchymal mass in the right middle lobe along the fissure appears stable. 4. Diffuse chronic lung parenchymal changes consistent with emphysematous change and COPD again note d. 5. Aneurysmal dilatation of the thoracic and upper abdominal aorta. Evidence of enlargement of the u pper abdominal aortic aneurysm. CODE LN. POS: [facility]
[2018-02-17 13:49] VITALS: BMI 15.1
[2018-02-17] MEDS ORDERED: Ipratropium Bromide 2.5 ml Neb NEB PRN (14:16)
[2018-02-17] MEDS ORDERED: traMADol HCl 50 MG TAB PO PRN (14:55)
[2018-02-17] MEDS ORDERED: Acetaminophen/Codeine 30-300mg Tablet PO PRN (14:55)
[2018-02-17] MEDS ORDERED: Mag-Al 1200 mg/1200 mg/30 ML UDCUP PO PRN (14:55)
[2018-02-17] MEDS ORDERED: Acetaminophen 325 MG TAB PO PRN (14:55)
[2018-02-17] MEDS ORDERED: cloNIDine 0.1 MG TAB PO PRN (14:55)
[2018-02-17] MEDS ORDERED: Nitroglycerin 0.4 MG TAB (25 Tab Bottle) SL PRN (14:55)
[2018-02-17] MEDS ORDERED: Ondansetron HCl/PF 4 MG/2 ML Vial IVP PRN (14:57)
[2018-02-17] MEDS ORDERED: Ondansetron ODT 4 MG TAB PO PRN (14:57)
--- NOTE | 2018-02-17 14:57 | HP ---
DATE OF ADMISSION: 02/17/2018 PRIMARY CARE PHYSICIAN: Puma Lewis M.D. CHIEF COMPLAINT: Shortness of breath. HISTORY OF PRESENT ILLNESS: The patient is an 82-year-old female, currently residing at [facility], presented to the hospital with the above complaints. The shortness of breath started this morning while she was at home. She has a history of COPD and us es oxygen on an as needed basis. She felt lightheaded; however, denies any chest discomfort, palpita tions or significant wheezing. No recent immobilization, travel, fever, chills or coughing reported. When the EMS arrived, her blood pressure was 200/134 with a repeat blood pressure of 224/140. She got multiple breathing treatments by the EMS and was placed on noninvasive positive pressure ventilat ion. She was brought to the emergency room. In the emergency room, initial vital signs showed temperature 99 with respiration of 18, pulse rate o f 99, blood pressure of 221/120. She was initially placed on BiPAP that was later weaned off. She w as later saturating 97% on 2 liter nasal cannula. Due to elevated blood pressures, she was placed on nitroglycerin drip that was later discontinued. Symptomatically, she feels better. PAST MEDICAL HISTORY: 1. COPD. 2. Chronic respiratory failure, on home oxygen. 3. Peripheral vascular disease. 4. History of ischemic colitis. 5. Abdominal aortic aneurysm. 6. Anxiety and depression. 7. Mild dementia. 8. Dyslipidemia. 9. Hypertension. 10. Restless legs syndrome. 11. Hyperlipidemia. 12. History of cerebrovascular accident. 13. Urinary retention. PAST SURGICAL HISTORY: 1. Hysterectomy. 2. Bilateral eye surgery. 3. Removal of skin cancer. 4. Right femoral stent placement. 5. Colonoscopy. ALLERGIES: The patient is allergic to ALBUTEROL, BUDESONIDE and FORMOTEROL. CURRENT MEDICATIONS: At the [facility], Requip 0.5 mg twice daily, multivitamin 1 tablet daily , Bentyl as needed, Tylenol No. 3 as needed, Milk of Magnesia as needed, Spiriva 18 mcg daily, Proton ix 40 mg daily, losartan 25 mg daily, vitamin B12 1000 mcg daily, Zoloft 50 mg daily, tramadol as nee ded, Lidoderm patch on 12 12, Colace 100 mg as needed, clonidine as needed, Namenda 10 mg twice a day, Brovana twice a day, nitroglycerin as needed, Maalox as needed, simvastatin 20 mg daily, folic acid 1 mg daily. SOCIAL HISTORY: The patient currently lives at [facility]. She ambulates with the help of a walker. Her lives with her. Her is the decision maker. She continues to smoke on and off. Drinks alcohol socially. FAMILY HISTORY: Negative for heart disease. REVIEW OF SYSTEMS: The following complete review of systems was negative, unless otherwise mentioned in the HPI or below: Constitutional: Weight loss or gain, ability to conduct usual activities. Sk in: Rash, itching. Eyes: Double vision, pain. ENT/Mouth: Nose bleeding, neck stiffness, pain, te nderness. Cardiovascular: Palpitations, dyspnea on exertion, orthopnea. Respiratory: Shortness of breath, wheezing, cough, hemoptysis, fever or night sweats. Gastrointestinal: Poor appetite, abdom inal pain, heartburn, nausea, vomiting, constipation, or diarrhea. Genitourinary: Urgency, frequenc y, dysuria, nocturia. Musculoskeletal: Pain, swelling. Neurologic/Psychiatric: Anxiety, depressio n. Allergy/Immunologic: Skin rash, bleeding tendency. PHYSICAL EXAMINATION: VITAL SIGNS: As discussed above. GENERAL: An 82-year-old female, in no apparent distress. Denies any chest discomfort at this time. HEENT: Head, atraumatic, normocephalic. Sclerae are anicteric. Moist mucous membrane. No oral les ion. NECK: Supple. No JVD appreciated. No carotid bruit. LUNGS: Showed scattered bibasilar rales with scattered rhonchi. No wheezing. No significant access ory muscle use. HEART: S1, S2 present. Regular rate and rhythm. No rubs or gallops appreciated. A 2/6 systolic mu rmur over the mitral area. ABDOMEN: Soft, nontender. Bowel sounds present. EXTREMITIES: No edema or calf tenderness. NEUROLOGIC: Grossly nonfocal. Moves all four extremities. PSYCHIATRY: Alert, awake, oriented x3. SKIN: Warm and dry. LYMPH NODES: No palpable lymph nodes in the neck. PERIPHERAL VASCULAR: Radial pulses palpable bilaterally. MUSCULOSKELETAL: No joint swelling or tenderness. CODE STATUS: Do not resuscitate, confirmed with the patient. LABORATORY FINDINGS: CBC showed WBC 8.7 with hemoglobin 11.8, hematocrit 36.4, platelets 234,000. D -dimer was 1.33. Chemistries showed sodium 131, potassium 4.5, chloride 97, bicarbonate 23, BUN 16, creatinine 0.72. Lactic acid 1.2. BNP 79.5. IMAGING: EKG by my review showed sinus rhythm with PACs with left axis deviation. Chest x-ray by my review showed findings consistent with COPD. CT angiogram of the chest was negative for pulmonary e mbolism. It showed a new 1 cm nodular mass in the right upper lobe. IMPRESSION: 1. Acute on chronic hypoxic respiratory failure secondary to chronic obstructive pulmonary disease e xacerbation, requiring noninvasive positive pressure ventilation. 2. Hypertensive crisis requiring nitroglycerin drip. 3. Alzheimer's dementia. 4. Anxiety and depression. 5. Restless legs syndrome. 6. History of abdominal aortic aneurysm. 7. New lung nodule found in the right upper lobe. 8. Chronic diastolic heart failure, appears to be compensated, [id number] mitral regurgitation on the last echo. 9. Chronic respiratory failure, on home oxygen on a p.r.n. basis. 10. History of ischemic colitis. 11. Peripheral vascular disease. 12. Ongoing tobacco abuse. 13. Chronic kidney disease stage 2. 14. Hyponatremia. 15. Chronic anemia. PLAN: The patient will be monitored on the telemetry unit. We will resume losartan at a higher dose . We will resume all other home medications. We will add low dose aspirin given a history of periph eral vascular disease. Resume all of her home medications. Continue Zoloft. Continue nebulizer avni atment. Resume Spiriva and Brovana. Add Atrovent. Please note that the patient is allergic to albu terol. The patient will require probably 2 days for stabilization.
[2018-02-17] MEDS ORDERED: Polyethylene Glycol 3350 17 GM Packet PO PRN (15:03)
[2018-02-17] MEDS ORDERED: Loperamide HCl 2 MG CAP PO PRN (15:13)
[2018-02-17] MEDS ORDERED: ISOVUE-370 76%-LOCM 1 ML ONE (15:14)
[2018-02-17] MEDS ORDERED: Amlodipine 5 MG TAB PO SCH (15:15)
[2018-02-17 15:52] LABS: Troponin I Less than 0.010 ng/mL (< 0.028)
[2018-02-17] MEDS: Lidocaine 5% Patch TD SCH (17:36)
[2018-02-17] MEDS: Arformoterol 15 MCG/2 ML NEB NEB SCH (19:04)
[2018-02-17] MEDS: Ipratropium Bromide 2.5 ml Neb NEB SCH (19:08)
[2018-02-17] MEDS: Losartan 25 MG TAB PO SCH (20:43)
[2018-02-17] MEDS: Heparin 5,000 UNITS/ML VIAL SC SCH (20:43)
[2018-02-17] MEDS: Simvastatin 20 MG TAB PO SCH (20:44)
[2018-02-17] MEDS: rOPINIRole HCl 0.25 MG TAB PO SCH (20:44)
[2018-02-17] MEDS: Acetaminophen 500 MG TAB PO PRN (20:45)
[2018-02-18 05:04] LABS: #Basophils 0.1 thou/uL (0.0-0.2); #Eosinphils 0.4 thou/uL (0.0-0.7); #Lymphocytes 2.5 thou/uL (1.20-3.40); #Monocytes 0.7 thou/uL (0.11-0.59); #Neutrophils 4.8 thou/uL (1.40-6.50); %Basophils 0.7 % (0.0-1.0); %Eosinophils 4.5 % (0.0-10.0); %Lymphocytes 29.8 % (21.0-51.0); %Monocytes 8.5 % (0.0-10.0); %Neutrophils 56.6 % (42.0-75.0); Hemoglobin 11.2 g/dL (12.0-16.0); Mean Corpuscular HGB CONC 32.2 g/dL (32.0-36.0); Mean Corpuscular Hemoglobin 30.9 pg (27.0-31.0); Mean Platelet Volume 6.8 fL (7.4-10.4); Platelet Count 219 thou/uL (130-400); RBC Distribution Width 12.9 % (11.5-14.5); Red Blood Cell (RBC) Count 3.61 mill/uL (4.20-5.40); White Blood Cell (WBC) Count 8.4 thou/uL (4.8-10.8)
[2018-02-18 05:19] LABS: Anion Gap 12 mmol/L (10-20); BUN (Urea Nitrogen) 16 mg/dL (9.8-20.1); Calc. Creatinine Clearance 32 mL/min (70-130); Calcium 9.9 mg/dL (7.8-10.44); Carbon Dioxide 27 mmol/L (23-31); Chloride 100 mmol/L (98-107); Estimated GFR-MDRD 77; Glucose 112 mg/dL (83-110); Magnesium 2.2 mg/dL (1.6-2.6); Potassium 3.9 mmol/L (3.5-5.1); Sodium 135 mmol/L (136-145)
[2018-02-18] MEDS: Lidocaine Patch Removal 1 EACH TOP SCH (05:36)
[2018-02-18] MEDS: Ipratropium Bromide 2.5 ml Neb NEB SCH ×3 (07:46→19:26)
[2018-02-18] MEDS: Arformoterol 15 MCG/2 ML NEB NEB SCH ×2 (07:46→19:25)
[2018-02-18] MEDS ORDERED: Polyethylene Glycol 3350 17 GM Packet PO SCH (09:00)
[2018-02-18] MEDS ORDERED: Amlodipine 5 MG TAB PO SCH ×2 (09:00)
[2018-02-18] MEDS ORDERED: Spiriva 18 MCG CAP (Box of 5 Caps) INH SCH (09:00)
[2018-02-18] MEDS: Folic Acid 1 MG TAB PO SCH (10:10)
[2018-02-18] MEDS: Losartan 25 MG TAB PO SCH (10:11)
[2018-02-18] MEDS: rOPINIRole HCl 0.25 MG TAB PO SCH ×2 (10:11→21:46)
[2018-02-18] MEDS: Cyanocobalamin (Vitamin B-12) 1,000 MCG TAB PO SCH (10:12)
[2018-02-18] MEDS: Heparin 5,000 UNITS/ML VIAL SC SCH ×2 (10:13→21:45)
[2018-02-18] MEDS: Docusate 100 MG CAP PO SCH (10:13)
[2018-02-18] MEDS: Lidocaine 5% Patch TD SCH (20:35)
[2018-02-18] MEDS: Acetaminophen 500 MG TAB PO PRN (21:46)
[2018-02-18] MEDS: Simvastatin 20 MG TAB PO SCH (21:46)
--- NOTE | 2018-02-18 22:24 | PDOC.PN ---
- Subjective Encounter Start Date: 02/18/18 Encounter Start Time: 16:00 Patient seen and examined for resp failure/HTN urgency. No new complaints. No overnight events - Objective Resuscitation Status: Resuscitation Status DNR:Do Not Resuscitate MAR Reviewed: Yes Vital Signs & Weight: Vital Signs (12 hours) Temp Pulse Pulse Pulse Resp BP BP 02/18/18 20:00 97.7 F 96 16 02/18/18 19:26 96 18 02/18/18 19:25 96 18 02/18/18 16:00 98.1 F 78 16 02/18/18 14:03 91 12 02/18/18 13:46 76 80 106/55 L 94/51 L 02/18/18 12:00 98 F 78 16 BP BP Pulse Ox Pulse Ox 02/18/18 20:00 109/55 L 100 02/18/18 19:26 7 L 02/18/18 19:25 97 02/18/18 16:00 123/60 96 02/18/18 14:03 02/18/18 13:46 96/51 L 92 L 02/18/18 12:00 97/52 L 95 Weight Admit Weight 77 lb 8 oz Weight 77 lb 8 oz I&O: 02/17/18 02/18/18 02/19/18 06:59 06:59 06:59 Intake Total 740 240 Output Total 750 Balance -10 240 Result Diagrams: 02/18/18 04:41 02/18/18 04:41 EKG Reviewed by me: Yes (Tele SR) Phys Exam - Physical Examination Constitutional: NAD Respiratory: no wheezing, no rhonchi Cardiovascular: RRR, no rub Gastrointestinal: soft, non-tender, positive bowel sounds Musculoskeletal: no edema Neurological: moves all 4 limbs Dx/Plan - Plan DVT proph w/SCDs IMPRESSION: 1. Acute on chronic hypoxic respiratory failure secondary to chronic obstructive pulmonary disease exacerbation, requiring noninvasive positive pressure ventilation. 2. Hypertensive crisis requiring nitroglycerin drip. 3. Alzheimer's dementia. 4. Anxiety and depression. 5. Restless legs syndrome. 6. History of abdominal aortic aneurysm. 7. New lung nodule found in the right upper lobe. 8. Chronic diastolic heart failure, appears to be compensated, mild-to- moderate mitral regurgitation on the last echo. 9. Chronic respiratory failure, on home oxygen on a p.r.n. basis. 10. History of ischemic colitis. 11. Peripheral vascular disease. 12. Ongoing tobacco abuse. 13. Chronic kidney disease stage 2. 14. Hyponatremia. 15. Chronic anemia. PLAN: Change Losartan to home dose due to BP on lower side Cont Nebs Cont current meds as below DC Amlodipine DC in AM if stable Review of Systems - Review of Systems Respiratory: negative: Cough, Dry, Shortness of Breath, Hemoptysis, SOB with Excertion, Pleuritic Pain, Sputum, Wheezing Cardiovascular: negative: chest pain, palpitations, orthopnea, paroxysmal nocturnal dyspnea, edema, light headedness, other - Medications/Allergies Allergies/Adverse Reactions: Allergies Allergy/AdvReac Type Severity Reaction Status Date / Time albuterol Allergy Verified 04/17/17 19:39 budesonide Allergy Verified 04/17/17 19:39 formoterol [From Symbicort] Allergy Verified 04/17/17 19:39 Medications: Current Medications Acetaminophen (Tylenol) 1,000 mg PO Q6HR PRN PRN Reason: Pain Last Admin: 02/18/18 21:46 Dose: 1,000 mg Acetaminophen (Tylenol) 650 mg PO Q4H PRN PRN Reason: Headache/Fever or Pain Last Admin: 02/18/18 14:13 Dose: 650 mg Acetaminophen/Codeine Phosphate (Tylenol #3) 1 tab PO Q6HR PRN PRN Reason: Moderate Pain (4-6) Al Hydroxide/Mg Hydroxide (Maalox) 30 ml PO Q6HR PRN PRN Reason: Heartburn or Indigestion Arformoterol Tartrate (Brovana) 15 mcg NEB BID-RT [facility] Last Admin: 02/18/18 19:25 Dose: 15 mcg Clonidine (Catapres) 0.1 mg PO Q4H PRN PRN Reason: SBP GREATER THAN 160 Cyanocobalamin (Vitamin B-12) 1,000 mcg PO DAILY [facility] Last Admin: 02/18/18 10:12 Dose: 1,000 mcg Docusate Sodium (Colace) 100 mg PO DAILY [facility] Last Admin: 02/18/18 10:13 Dose: 100 mg Folic Acid (Folvite) 1 mg PO DAILY [facility] Last Admin: 02/18/18 10:10 Dose: 1 mg Heparin Sodium (Porcine) (Heparin) 5,000 units SC BID [facility] Last Admin: 02/18/18 21:45 Dose: 5,000 units Ipratropium [place] (Atrovent) 2.5 ml NEB [id number] [facility] Last Admin: 02/18/18 19:26 Dose: 2.5 ml Lidocaine (Lidoderm 5% Patch) 1 patch TD Q24HR [facility] Last Admin: 02/18/18 20:35 Dose: Not Given Loperamide HCl (Imodium) 2 mg PO PRN PRN PRN Reason: Diarrhea/Loose Stools Losartan Potassium (Cozaar) 25 mg PO DAILY [facility] Memantine (Namenda) 10 mg PO BID [facility] Last Admin: 02/18/18 21:46 Dose: 10 mg Miscellaneous Medication (Lidocaine Patch Removal) 1 each TOP 0600 [facility] Last Admin: 02/18/18 05:36 Dose: Not Given Nitroglycerin (Nitrostat) 0.4 mg SL Q5MIN PRN PRN Reason: Chest Pain Ondansetron HCl (Zofran Odt) 4 mg PO Q6H PRN PRN Reason: Nausea/Vomiting Ondansetron HCl (Zofran) 4 mg IVP Q6H PRN PRN Reason: Nausea/Vomiting Pantoprazole Sodium (Protonix) 40 mg PO DAILY [facility] Last Admin: 02/18/18 10:11 Dose: 40 mg Polyethylene Glycol (Miralax) 17 gm PO DAILYPRN PRN PRN Reason: Constipation Last Admin: 02/18/18 10:18 Dose: 17 gm Ropinirole HCl (Requip) 0.5 mg PO BID [facility] Last Admin: 02/18/18 21:46 Dose: 0.5 mg Sertraline HCl (Zoloft) 50 mg PO DAILY [facility] Last Admin: 02/18/18 10:12 Dose: 50 mg Simvastatin (Zocor) 20 mg PO HS [facility] Last Admin: 02/18/18 21:46 Dose: 20 mg Sodium Chloride (Flush - Normal Saline) 10 ml IVF PRN PRN PRN Reason: Saline Flush Last Admin: 02/18/18 10:14 Dose: 10 ml Tramadol HCl (Ultram) 50 mg PO Q6HR PRN PRN Reason: Mild Pain 1-3 1ST LINE
[2018-02-19] MEDS: Lidocaine Patch Removal 1 EACH TOP SCH (04:58)
[2018-02-19] MEDS: Ipratropium Bromide 2.5 ml Neb NEB SCH ×2 (07:20→12:40)
[2018-02-19] MEDS: Arformoterol 15 MCG/2 ML NEB NEB SCH (07:22)
[2018-02-19 08:12] VITALS: TEMP 97.8
[2018-02-19] MEDS: rOPINIRole HCl 0.25 MG TAB PO SCH (08:31)
[2018-02-19] MEDS: Heparin 5,000 UNITS/ML VIAL SC SCH (08:31)
[2018-02-19] MEDS: Cyanocobalamin (Vitamin B-12) 1,000 MCG TAB PO SCH (08:32)
[2018-02-19] MEDS: Docusate 100 MG CAP PO SCH (08:32)
[2018-02-19] MEDS: Folic Acid 1 MG TAB PO SCH (08:32)
[2018-02-19] MEDS ORDERED: Losartan 25 MG TAB PO SCH (09:00)
[2018-02-19 13:19] VITALS: BP 143/68
--- NOTE | 2018-02-19 21:44 | DIS ---
DATE OF DISCHARGE: 02/19/2018 DISCHARGE DISPOSITION: Assisted living, home health care from a nurses touch has been arranged. The patient was seen and examined on the day of discharge. Denies any new complaints, no chest pain, shortness of breath, palpitations. DISCHARGE MEDICATIONS: As same as admission medication. No changes were made. BRIEF HOSPITAL COURSE: Patient is an 82-year-old female currently residing at assisted living [facility], presented to the hospital by EMS with sudden onset of shortness of breath. Her blood pressure pe r EMS was 200/134 and 224/140. She received multiple breathing treatments by EMS and was placed on n oninvasive positive pressure ventilation. Please refer to the history and physical for further detai ls. The patient was admitted to the hospital with the diagnosis of acute on chronic hypoxic respiratory f ailure secondary to mild chronic obstructive pulmonary disease exacerbation along with hypertensive c risis requiring nitroglycerin drip in the emergency room. A noninvasive positive pressure ventilatio n as well as nitroglycerin drip was discontinued in the emergency room. She was monitored on the tel emetry unit. She normally takes losartan 25 mg daily for her blood pressure. Losartan dose was incr eased to 25 mg twice a day along with low dose of amlodipine. The patient started becoming hypotensi ve with blood pressure in 90s. For this reason, antihypertensives have been changed to her home dose . Her blood pressure has remained stable over the last 24 hours. She was advised to take an extra d ose of losartan, if blood pressure gets elevated more than systolic 180s. No other changes in her me dications were made. Home health care has been arranged. DIAGNOSTIC TESTS: CT angiogram of the chest was negative for pulmonary embolism. It showed a new 1 cm nodular mass in the right upper lobe. She was advised to follow up with Dr. Gamboa. FINAL DIAGNOSES: 1. Acute on chronic hypoxic respiratory failure secondary to mild chronic obstructive pulmonary dise ase exacerbation. She was placed on noninvasive positive pressure ventilation in the Emergency Room that was later discontinued. 2. Hypertensive crisis requiring nitroglycerin drip in the emergency room which was later discontinu ed. 3. Alzheimer's dementia. 4. Anxiety and depression. 5. Restless leg syndrome. 6. History of abdominal aortic aneurysm. 7. New lung nodule found in the right upper lobe. The patient will follow up with Dr. Gamboa. 8. Chronic diastolic heart failure, compensated. 9. Mild to moderate mitral regurgitation. 10. Chronic respiratory failure on home oxygen. 11. History of ischemic colitis. 12. Peripheral vascular disease. 13. Ongoing tobacco abuse. 14. Chronic kidney disease stage 2. 15. Hyponatremia. 16. Chronic anemia. Plan of care was discussed with the patient in detail. She stated understanding. Total time coordinating the discharge of this patient was 35 minutes.
== END 2018-02-19 14:50 | disposition home health service (06) | DRG 189 ==
LOC: ERS 09:27 → 2NO 11:48
PROVIDERS: ADMIT Internal Medicine; ATTEND Internal Medicine
DX: J96.21 Acute and chronic respiratory failure with hypoxia (principal); J44.1 Chronic obstructive pulmonary disease with (acute) exacerbation; I16.9 Hypertensive crisis, unspecified; I50.32 Chronic diastolic (congestive) heart failure; I13.0 Hypertensive heart and chronic kidney disease with heart failure and stage 1 through stage 4 chronic kidney disease, or unspecified chronic kidney disease; E87.1 Hypo-osmolality and hyponatremia; Z99.81 Dependence on supplemental oxygen; I73.9 Peripheral vascular disease, unspecified; I71.4 Abdominal aortic aneurysm, without rupture; F41.9 Anxiety disorder, unspecified; F32.9 Major depressive disorder, single episode, unspecified; E78.5 Hyperlipidemia, unspecified; G25.81 Restless legs syndrome; R33.9 Retention of urine, unspecified; G30.9 Alzheimer's disease, unspecified; F02.80 Dementia in other diseases classified elsewhere, unspecified severity, without behavioral disturbance, psychotic disturbance, mood disturbance, and anxiety; I34.0 Nonrheumatic mitral (valve) insufficiency; R91.1 Solitary pulmonary nodule; F17.210 Nicotine dependence, cigarettes, uncomplicated; D64.9 Anemia, unspecified; N18.2 Chronic kidney disease, stage 2 (mild)
CPT/HCPCS: 36415; 71045; 71275; 80048; 80053; 82553; 83605; 83735; 83880; 84484; 85025; 85379; 93005; 94640; 94660; 94760; 96374; G8978-GP-CM; G8979-GP-CK; J1644; J7644

== ENCOUNTER 2018-02-20 20:58 | Inpatient (IN) | payer MEDICARE, OTHER ==
[2018-02-20] MEDS ORDERED: methylPREDNISolone Sod Succ/PF 125 MG/2 ML VIAL ONE (21:11)
--- NOTE | 2018-02-20 21:51 | RAD ---
PORTABLE CHEST 02/20/18 HISTORY: Dyspnea. COMPARISON: 02/17/18. The lungs are clear of infiltrate. The heart size is within normal range. Prominent aortic calcificat ion. Mild interstitial prominence. The vascular markings appears within normal range. IMPRESSION: Chronic lung parenchymal changes with stranding and interstitial prominence. No infiltrate or evidenc e of significant vascular congestion. POS: AGW
[2018-02-20 22:14] LABS: #Basophils 0.1 thou/uL (0.0-0.2); #Eosinphils 0.2 thou/uL (0.0-0.7); #Lymphocytes 2.8 thou/uL (1.20-3.40); #Monocytes 0.8 thou/uL (0.11-0.59); #Neutrophils 8.2 thou/uL (1.40-6.50); %Basophils 0.5 % (0.0-1.0); %Eosinophils 1.8 % (0.0-10.0); %Monocytes 6.7 % (0.0-10.0); Hemoglobin 11.8 g/dL (12.0-16.0); Mean Corpuscular HGB CONC 31.9 g/dL (32.0-36.0); Mean Corpuscular Hemoglobin 30.6 pg (27.0-31.0); Mean Corpuscular Volume 95.7 fL (78.0-98.0); Mean Platelet Volume 7.1 fL (7.4-10.4); Platelet Count 260 thou/uL (130-400); RBC Distribution Width 13.1 % (11.5-14.5); Red Blood Cell (RBC) Count 3.85 mill/uL (4.20-5.40)
[2018-02-20 22:37] LABS: ALT (SGPT) 11 U/L (8-55); AST (SGOT) 24 U/L (5-34); Albumin 4.3 g/dL (3.4-4.8); Alkaline Phosphatase 93 U/L (40-150); Anion Gap 18 mmol/L (10-20); BUN (Urea Nitrogen) 19 mg/dL (9.8-20.1); Bilirubin, Total 0.4 mg/dL (0.2-1.2); CK (CPK) 86 U/L (29-168); Calc. Creatinine Clearance 0 mL/min (70-130); Calcium 10.2 mg/dL (7.8-10.44); Carbon Dioxide 26 mmol/L (23-31); Chloride 98 mmol/L (98-107); Estimated GFR-MDRD 70; Globulin 2.8 g/dL (2.4-3.5); Glucose 150 mg/dL (83-110); Potassium 3.9 mmol/L (3.5-5.1); Protein, Total 7.1 g/dL (6.0-8.3); Sodium 138 mmol/L (136-145)
[2018-02-20 22:38] LABS: CKMB 6.4 ng/mL (0-6.6); Troponin I 0.029 ng/mL (< 0.028)
[2018-02-21] MEDS ORDERED: Loperamide HCl 2 MG CAP PO PRN ×2 (11:14)
[2018-02-21] MEDS ORDERED: Ondansetron ODT 4 MG TAB PO PRN (11:14)
[2018-02-21] MEDS ORDERED: Enoxaparin Sodium 30 MG/0.3 ML SYRINGE SC SCH (11:14)
[2018-02-21] MEDS ORDERED: Bisacodyl 5 MG TAB PO PRN (11:14)
[2018-02-21] MEDS ORDERED: Acetaminophen 325 MG TAB PO PRN (11:14)
[2018-02-21] MEDS ORDERED: Bisacodyl 10 MG SUPP PR PRN (11:14)
[2018-02-21] MEDS ORDERED: Zolpidem Tartrate 5 MG TAB PO PRN (11:14)
[2018-02-21] MEDS ORDERED: Ondansetron HCl/PF 4 MG/2 ML Vial SLOW IVP PRN (11:14)
[2018-02-21] MEDS ORDERED: Calcium Carbonate 500 MG ChewTAB PO PRN (11:14)
[2018-02-21] MEDS ORDERED: Senokot S 8.6-50 MG TAB PO PRN (11:17)
[2018-02-21] MEDS ORDERED: HYDROcodone/Acetaminophen 5/325 mg Tablet PO PRN (11:55)
--- NOTE | 2018-02-21 12:53 | HP ---
PRIMARY CARE PHYSICIAN: Dr. Puma Lewis. PRIMARY SCRAP CRUSHER: Dr. Gamboa REASON FOR ADMISSION: Acute dyspnea. HISTORY OF PRESENT ILLNESS: An 82-year-old female who has severe COPD as well as ongoing tobacco abuse disorder. She also has chronic respiratory failure on home oxygen therapy. She lives at assisted living facility at [facility]. She was recently admitted in our hospital on 02/17/2018 and she was discharged 02/19/2018. During that admission, the patient had CT angiography which showed 1 cm nodular mass in the right upper lobe. Patient also found with parenchymal mass in the right middle lobe which was stable and the patient has COPD changes. After discharge, she was doing relatively okay, but last night, she felt again exactly similar symptoms with this shortness of breath and she was not able to breathe and that is why Paramedics were called and patient was brought to emergency room. The patient was admitted for COPD exacerbation. This morning when I saw this patient at that time, patient was not having any wheezing. She was completely up to her baseline. She was saturating with 2- liter nasal cannula oxygen normal and her vitals are stable. Patient not appear in respiratory distress and patient was also feeling much better and she was feeling that she was up to her baseline, but she was not sure what happened last night that made her acutely short of breath. She did not have any associated chest pain, palpitation, dizziness. She denies any hemoptysis. She denies any change in her weight. She denies any pleuritic chest pain. She denies any upper respiratory or lower respiratory symptoms. She does have chronic cough which is difficult to expectorate. She is chronically short of breath, but she feels that this is her normal. She denies any UTI symptoms. She denies any constipation, diarrhea, melena, hematochezia. PAST MEDICAL HISTORY: End-stage chronic obstructive pulmonary disease, tobacco abuse disorder, chronic respiratory failure on home oxygen therapy, peripheral vascular disease , history of abdominal aortic aneurysm, history of ischemic colitis, hypertension, dyslipidemia, restless leg syndrome, history of CVA, history of urinary retention, peripheral vascular disease. PAST SURGICAL HISTORY: Hysterectomy, colonoscopy, right femoral artery stent placement, skin cancer removal, bilateral eye surgery. PAST PSYCHIATRIC HISTORY: Anxiety and depression, senile dementia. ALLERGIES: Patient is not tolerating ALBUTEROL, BUDESONIDE, and FORMOTEROL. CURRENT HOME MEDICATIONS: Aspirin 81 mg p.o. daily, Brovana 15 mcg nebulization twice daily, folic acid 1 mg p.o. daily, losartan 25 mg p.o. daily , Namenda 10 mg twice daily, multivitamin 1 tablet daily, Protonix 40 mg p.o. daily, Requip 0.5 mg p.o. b.i.d., Zoloft 50 mg p.o. daily, Zocor 20 mg p.o. at bedtime. These are the scheduled medication and the patient is also taking as needed p.r.n. medication. SOCIAL HISTORY: Patient lives at assisted living facility at [facility] with her . She ambulates with a walker. She smokes 4-5 cigarettes on a daily basis. She drinks small amount of vodka daily. She denies any other illicit drug abuse. FAMILY HISTORY: The patient denies any coronary artery disease, stroke, or cancer. No family history of lung cancer. REVIEW OF SYSTEMS: The following complete review of systems was negative, unless otherwise mentioned in the HPI or below: Constitutional: Weight loss or gain, ability to conduct usual activities. Skin: Rash, itching. Eyes: Double vision, pain. ENT/Mouth: Nose bleeding, neck stiffness, pain, tenderness. Cardiovascular: Palpitations, dyspnea on exertion, orthopnea. Respiratory: Shortness of breath, wheezing, cough, hemoptysis, fever or night sweats. Gastrointestinal: Poor appetite, abdominal pain, heartburn, nausea, vomiting, constipation, or diarrhea. Genitourinary: Urgency, frequency, dysuria, nocturia. Musculoskeletal: Pain, swelling. Neurologic/Psychiatric: Anxiety, depression. Allergy/Immunologic: Skin rash, bleeding tendency. Please see my HPI for pertinent positive and negative. All other review of systems reviewed and negative except as mentioned in the HPI. EMERGENCY ROOM COURSE: Reviewed. PHYSICAL EXAMINATION: VITAL SIGNS: On arrival, temperature 98.5, pulse 98, respiratory rate 16, saturation 98% on 2-liter oxygen, blood pressure 140/60. GENERAL: Patient is currently chronically ill, cachectic. HEENT: Normocephalic, atraumatic. Eyes: Pupils round, reactive to light. Extraocular muscle intact. ENT: Oropharynx within normal limits. Moist mucous membranes. No oral lesion, no pharyngeal erythema, no exudate. NECK: Supple, no JVD, no thyromegaly, no carotid bruit. LUNGS: Air entry reduced bilaterally, but no wheeze, no rhonchi, no rales. CARDIAC: S1, S2 regular without any significant murmur. Hemic murmur noted parasternally. No gallop. No rub. ABDOMEN: Soft, bowel sounds present, no organomegaly, no mass, no peritoneal sign, no suprapubic tenderness. BACK: Unremarkable. No CVA tenderness. EXTREMITIES: Upper extremities; passive movement of all joints are normal. Lower extremities; no edema. Good distal pulsation. SKIN: Patient does have old variable healing stage of purpura. PSYCHIATRIC: Normal affect. NEUROLOGIC: Nonfocal examination. SIGNIFICANT LABORATORY DATA: CBC: WBC 12.0, hemoglobin 11.8, platelet 260. BMP: Sodium 138, potassium 3.9, chloride 98, carbon dioxide 26, BUN 19, creatinine 0.78, glucose 150, calcium 10.2. LFT: AST 24, ALT 11, alkaline phosphatase 93, albumin 4.3. CK 86, CK-MB 6.4, troponin 0.029. Chest x-ray based on my review, chronic changes without any new acute process. EKG showing premature atrial complexes, left axis deviation, left atrial enlargement. ASSESSMENT AND PLAN: 1. Acute dyspnea, most likely related with her underlying COPD. Currently, does not have any acute exacerbations, but she is improving from previous admission for exacerbation. 2. Elevated troponin, likely demand ischemia. We will do serial cardiac enzymes x3. EKG is not showing any ischemic changes and patient does not have any chest pain. Monitor on telemetry floor. 3. Protein calorie malnutrition. The patient will need nutritional supplement with Ensure t.i.d. 4. Tobacco and alcohol abuse. Patient is given counseling to avoid alcohol abuse as well as smoking counseling is given. 5. Pulmonary nodule and pulmonary parenchymal changes. This patient had this finding on previous admission on 02/17/2018. At this point, patient is admitted for observation. The patient is already advised to follow up with Dr. Gamboa as an outpatient basis. Patient reassured me that she will make appointment after discharge from this admission next week. 6. Hypertension. Continue losartan 25 mg p.o. daily. 7. Chronic obstructive pulmonary disease without any current exacerbation. Continue Spiriva 18 mcg inhalation daily, Brovana 15 mcg twice daily. We will give her Solu-Medrol 20 mg IV q.8 hourly, Mucinex 600 mg twice daily and empiric Levaquin 250 mg p.o. daily. 8. Gastroesophageal reflux disease. Continue Protonix 40 mg p.o. daily. 9. Anxiety and depression. Continue Zoloft 50 mg p.o. daily. 10. Senile dementia. Continue Namenda 10 mg twice daily. 11. Deep venous thrombosis prophylaxis, heparin 5000 units subcu twice daily. 12. Gastrointestinal prophylaxis, Protonix 40 mg p.o. daily. CODE STATUS: DNR. This is discussed with the patient and patient's is surrogate decision maker. Disposition plan based on clinical course. We are expecting patient's stay in hospital for 24-48 hours. At this point, the patient does not appear to be in acute distress and she does not meet any classic criteria for inpatient hospitalization, but we will monitor in hospital. TREVOR
[2018-02-21] MEDS: Cyanocobalamin (Vitamin B-12) 1,000 MCG TAB PO SCH (13:08)
[2018-02-21] MEDS: Docusate 100 MG CAP PO SCH (13:08)
[2018-02-21] MEDS: guaiFENesin ER 600 MG TAB PO SCH ×2 (13:08→20:35)
[2018-02-21] MEDS: Folic Acid 1 MG TAB PO SCH (13:08)
[2018-02-21] MEDS: Losartan 25 MG TAB PO SCH (13:09)
[2018-02-21] MEDS: Multivitamin W/ Minerals 1 TAB PO SCH (13:09)
[2018-02-21 13:10] VITALS: BMI 15.5
[2018-02-21] MEDS: rOPINIRole HCl 0.5 MG TAB PO SCH ×2 (13:10→20:35)
[2018-02-21] MEDS: Ipratropium Bromide 2.5 ml Neb NEB SCH ×2 (14:05→18:26)
[2018-02-21] MEDS ORDERED: cloNIDine 0.1 MG TAB PO PRN (17:13)
[2018-02-21] MEDS ORDERED: hydrALAZINE 20 MG/ML VIAL SLOW IVP PRN (17:14)
[2018-02-21] MEDS ORDERED: Diabetic Tussin 200 MG/10 ML UDCUP PO PRN (17:16)
[2018-02-21] MEDS ORDERED: Loratadine 10 MG TAB PO PRN (17:17)
[2018-02-21] MEDS ORDERED: Sodium Chloride 0.65% Nasal 44 ML BOT EA NARE PRN (17:18)
[2018-02-21 19:06] LABS: Troponin I 0.019 ng/mL (< 0.028)
[2018-02-21] MEDS: Arformoterol 15 MCG/2 ML NEB NEB SCH (20:25)
[2018-02-21] MEDS ORDERED: Simvastatin 20 MG TAB PO SCH (21:00)
[2018-02-21] MEDS ORDERED: Famotidine 20 MG TAB PO SCH (21:00)
[2018-02-21 21:42] LABS: CKMB 3.6 ng/mL (0-6.6); Troponin I 0.016 ng/mL (< 0.028)
[2018-02-22] MEDS: Ipratropium Bromide 2.5 ml Neb NEB SCH ×3 (00:11→13:50)
[2018-02-22 04:37] LABS: #Basophils 0.1 thou/uL (0.0-0.2); #Lymphocytes 1.1 thou/uL (1.20-3.40); #Monocytes 0.6 thou/uL (0.11-0.59); #Neutrophils 10.3 thou/uL (1.40-6.50); %Basophils 0.5 % (0.0-1.0); %Eosinophils 0.2 % (0.0-10.0); %Lymphocytes 9.2 % (21.0-51.0); %Monocytes 4.6 % (0.0-10.0); %Neutrophils 85.4 % (42.0-75.0); Hemoglobin 10.8 g/dL (12.0-16.0); Mean Corpuscular HGB CONC 31.9 g/dL (32.0-36.0); Mean Corpuscular Hemoglobin 30.5 pg (27.0-31.0); Mean Corpuscular Volume 95.7 fL (78.0-98.0); Mean Platelet Volume 7.7 fL (7.4-10.4); Platelet Count 231 thou/uL (130-400); RBC Distribution Width 13.1 % (11.5-14.5); Red Blood Cell (RBC) Count 3.54 mill/uL (4.20-5.40); White Blood Cell (WBC) Count 12.1 thou/uL (4.8-10.8)
[2018-02-22 04:41] LABS: Anion Gap 13 mmol/L (10-20); BUN (Urea Nitrogen) 19 mg/dL (9.8-20.1); Calc. Creatinine Clearance 33 mL/min (70-130); Calcium 10.2 mg/dL (7.8-10.44); Carbon Dioxide 28 mmol/L (23-31); Cardiac Risk 2.3 (Less than 4.5); Chloride 96 mmol/L (98-107); Cholesterol 173 mg/dl (< 200 Desired); Estimated GFR-MDRD 76; Glucose 147 mg/dL (83-110); HDL Cholesterol 75 mg/dL (>60 Neg Risk); LDL Cholesterol, Calculated 85 mg/dL; Potassium 4.5 mmol/L (3.5-5.1); Sodium 132 mmol/L (136-145); Triglycerides 64 mg/dL (Less than 150)
[2018-02-22] MEDS: Arformoterol 15 MCG/2 ML NEB NEB SCH (06:47)
[2018-02-22] MEDS: guaiFENesin ER 600 MG TAB PO SCH (08:33)
[2018-02-22] MEDS: Multivitamin W/ Minerals 1 TAB PO SCH (08:33)
[2018-02-22] MEDS: rOPINIRole HCl 0.5 MG TAB PO SCH (08:34)
[2018-02-22] MEDS: Cyanocobalamin (Vitamin B-12) 1,000 MCG TAB PO SCH (08:34)
[2018-02-22] MEDS: Losartan 25 MG TAB PO SCH (08:34)
[2018-02-22] MEDS: Docusate 100 MG CAP PO SCH (08:34)
[2018-02-22] MEDS: Folic Acid 1 MG TAB PO SCH (08:34)
[2018-02-22] MEDS ORDERED: Aspirin 325 MG TAB PO SCH (09:00)
[2018-02-22] MEDS ORDERED: Enoxaparin Sodium 30 MG/0.3 ML SYRINGE SC SCH (09:00)
[2018-02-22 12:05] VITALS: TEMP 97.7
[2018-02-22 12:07] VITALS: BP 154/86
--- NOTE | 2018-02-22 15:31 | DIS ---
DATE OF ADMISSION: 02/20/2018 DATE OF DISCHARGE: 02/22/2018 DISCHARGE DIAGNOSES: 1. Acute exacerbation of chronic obstructive pulmonary disease, mild. 2. Elevated troponin I secondary to demand ischemia. 3. Severe protein calorie malnutrition. 4. Tobacco abuse. 5. Hypertension, stable. 6. Chronic hypoxemic respiratory failure with oxygen supplementation at 2 liters per minute by nasal cannula. 7. Anxiety/depression. CONSULTATIONS: None. PERTINENT LABORATORY DATA AND X-RAY FINDINGS: Basic metabolic profile within normal limits. Troponi n I ranged between 0.016-0.029, total cholesterol 173, triglycerides 64, HDL 75, LDL 85. CBC showed a white blood cell count 12.1, hemoglobin 11, hematocrit 34, platelet count 231. Portable chest x-ra y dated 02/20/2018 showed chronic lung changes bilaterally. No acute infiltrate identified. HOSPITAL COURSE: Patient was admitted to the telemetry unit after initially presenting with acute dy spnea in the context of chronic hypoxic respiratory failure on oxygen supplementation at 2 liters per minute by nasal cannula. The patient was treated with IV Solu-Medrol and oral Levaquin as well as g iven general pulmonary supportive measures with Brovana and bronchodilator therapy. The patient clin ically stabilized in 24 hours and maintaining O2 saturations in the mid 90% range on 2 liters per min [place] by nasal cannula, the patient's baseline level. The patient overall clinically stable with telem etry monitoring showing a sinus mechanism without evidence of acute arrhythmia or dysrhythmia. I hav e examined the patient at the time of discharge and discussed followup instructions. The patient ove rall clinically stable, verbalizing understanding and agreement with discharge plan and ready for dis charge, 02/22/2018. DISCHARGE MEDICATIONS: 1. Acetaminophen with codeine 300/30 mg 1 tab p.o. q.6 hours p.r.n. pain. 2. Vitamin B12 1000 mcg p.o. daily. 3. Colace 100 mg p.o. daily. 4. Lidoderm patch 5% 1 patch topically q.24 hours. 5. Losartan 25 mg p.o. daily. 6. Namenda 10 mg p.o. b.i.d. 7. Ropinirole 0.5 mg p.o. b.i.d. 8. Zoloft 50 mg p.o. daily. 9. Zocor 20 mg p.o. at bedtime. 10. Spiriva HandiHaler 18 mcg inhaled daily. 11. Tramadol 50 mg p.o. q.6 hours p.r.n. pain. 12. Brovana 15 mcg nebulized b.i.d. 13. Clonidine 0.1 mg p.o. q.4 hours p.r.n. systolic greater than or equal to 170. 14. Folic acid 1 mg p.o. daily. 15. Levaquin 250 mg p.o. daily x5 days. 16. Prednisone 10 mg 2 tabs p.o. daily x 3 days, followed by 1 tab p.o. daily x3 days. 17. Protonix 40 mg p.o. daily. 18. Nitroglycerin 0.4 mg sublingually every 5 minutes p.r.n. chest pain. FOLLOWUP: Patient to follow up with Dr. Puma Lewis within 7 days of discharge. CONDITION ON DISCHARGE: Fair. ACTIVITY: Ad valery. Rolling walker for ambulation. DIET: Regular. CODE STATUS: FULL. DISPOSITION: Home, 02/22/2018.
== END 2018-02-22 15:13 | disposition home health service (06) | DRG 190 ==
LOC: ERS 20:58 → ERHOLD 23:45 → 2SE 02-21 02:00
PROVIDERS: ADMIT Hospitalist; ATTEND Hospitalist
DX: J44.1 Chronic obstructive pulmonary disease with (acute) exacerbation (principal); E43 Unspecified severe protein-calorie malnutrition; J96.10 Chronic respiratory failure, unspecified whether with hypoxia or hypercapnia; I24.8 Other forms of acute ischemic heart disease; Z68.1 Body mass index [BMI] 19.9 or less, adult; Z99.81 Dependence on supplemental oxygen; F17.210 Nicotine dependence, cigarettes, uncomplicated; I73.9 Peripheral vascular disease, unspecified; I10 Essential (primary) hypertension; E78.5 Hyperlipidemia, unspecified; G25.81 Restless legs syndrome; Z86.73 Personal history of transient ischemic attack (TIA), and cerebral infarction without residual deficits; R33.9 Retention of urine, unspecified; Z85.828 Personal history of other malignant neoplasm of skin; F32.9 Major depressive disorder, single episode, unspecified; F41.9 Anxiety disorder, unspecified; F03.90 Unspecified dementia, unspecified severity, without behavioral disturbance, psychotic disturbance, mood disturbance, and anxiety; Z79.899 Other long term (current) drug therapy; Z79.82 Long term (current) use of aspirin; F10.10 Alcohol abuse, uncomplicated; R91.1 Solitary pulmonary nodule; K21.9 Gastro-esophageal reflux disease without esophagitis; Z71.41 Alcohol abuse counseling and surveillance of alcoholic; Z71.6 Tobacco abuse counseling
CPT/HCPCS: 36415; 71045; 80048; 80053; 80061; 82550; 82553; 84484; 85025; 93005; 94640; 96374; G8978-GP-CM; G8979-GP-CK; J1650; J2920; J2930; J7620; J7644

== ENCOUNTER 2018-09-25 02:37 | Observation (INO) | payer MEDICARE, OTHER ==
[2018-09-25 03:05] LABS: #Basophils 0.1 thou/uL (0.0-0.2); #Eosinphils 0.4 thou/uL (0.0-0.7); #Lymphocytes 3.1 thou/uL (1.20-3.40); #Monocytes 0.6 thou/uL (0.11-0.59); #Neutrophils 5.4 thou/uL (1.40-6.50); %Basophils 1.1 % (0.0-1.0); %Eosinophils 4.2 % (0.0-10.0); %Lymphocytes 32.3 % (21.0-51.0); %Monocytes 6.2 % (0.0-10.0); %Neutrophils 56.1 % (42.0-75.0); Hemoglobin 11.2 g/dL (12.0-16.0); Mean Corpuscular HGB CONC 33.4 g/dL (32.0-36.0); Mean Corpuscular Hemoglobin 31.3 pg (27.0-31.0); Mean Platelet Volume 6.5 fL (7.4-10.4); Platelet Count 252 thou/uL (130-400); RBC Distribution Width 13.7 % (11.5-14.5); Red Blood Cell (RBC) Count 3.58 mill/uL (4.20-5.40); White Blood Cell (WBC) Count 9.6 thou/uL (4.8-10.8)
[2018-09-25 03:30] LABS: ALT (SGPT) 10 U/L (8-55); AST (SGOT) 21 U/L (5-34); Albumin 3.8 g/dL (3.4-4.8); Alkaline Phosphatase 100 U/L (40-150); Anion Gap 13 mmol/L (10-20); BUN (Urea Nitrogen) 15 mg/dL (9.8-20.1); Bilirubin, Total 0.3 mg/dL (0.2-1.2); CK (CPK) 32 U/L (29-168); Calc. Creatinine Clearance 0 mL/min (70-130); Calcium 9.6 mg/dL (7.8-10.44); Carbon Dioxide 28 mmol/L (23-31); Chloride 99 mmol/L (98-107); Estimated GFR-MDRD 75; Globulin 2.4 g/dL (2.4-3.5); Glucose 90 mg/dL (83-110); Potassium 3.3 mmol/L (3.5-5.1); Protein, Total 6.2 g/dL (6.0-8.3); Sodium 137 mmol/L (136-145)
[2018-09-25] MEDS ORDERED: Labetalol HCl 100 MG/20 ML VIAL ONE (03:47)
[2018-09-25] MEDS ORDERED: Labetalol HCl 100 MG/20 ML VIAL SLOW IVP SCH (04:00)
[2018-09-25] MEDS ORDERED: Acetaminophen 325 MG TAB PO PRN (04:26)
[2018-09-25] MEDS ORDERED: traMADol HCl 50 MG TAB PO PRN (04:36)
[2018-09-25] MEDS ORDERED: Nitroglycerin 0.4 MG TAB (25 Tab Bottle) SL PRN (04:39)
[2018-09-25] MEDS ORDERED: Ipratropium Bromide 2.5 ml Neb NEB PRN (04:53)
[2018-09-25 05:32] VITALS: BMI 15.8
--- NOTE | 2018-09-25 06:37 | HP ---
CHIEF COMPLAINT: Chest pain. HISTORY OF PRESENT ILLNESS: This patient is an 82-year-old female who has a history of COPD and abdominal aortic aneurysm, who presented to the emergency department with chest pain. This patient still lives independently at the [facility] with her in an assisted living environment. She continues to smoke a few cigarettes per day. The patient reports that she was awakened on the day of admission with 8/10 chest pain. It was sharp in the left lower anterior chest area. The patient reports that she has had symptoms like this before, but it has been several years. She had a stress test in 2016 that was normal and she believes that was the last time that she actually experienced any of this pain. She stated that it lasted about 30 minutes and resolved when she received oxygen and nitroglycerin from the EMS. She denies any associated lightheadedness, shortness of breath, nausea, or diaphoresis. She does report the pain did radiate toward her back. She also admits to a chronic cough that she says is related to her cigarettes. She has had no fevers or chills. REVIEW OF SYSTEMS: Further indicates normal bowel and bladder habits and normal appetite. She denies any significant weight loss. All other systems were reviewed and all pertinent positives and negatives noted in the history of present illness. PAST MEDICAL HISTORY: Notable for COPD requiring prior hospitalizations, ongoing tobacco abuse, chronic respiratory failure, peripheral vascular disease, history of abdominal aortic aneurysm, most recently seen on CT in February 2018, which revealed a width of 5 cm, which had increased from previous scan. However, the patient has seen Dr. Ferrara on a couple different occasions over the last several years and has been deemed nonoperable because of multiple comorbidities and ongoing tobacco abuse. She has a history of ischemic colitis, hypertension, dyslipidemia, restless legs syndrome, prior CVA, and history of urinary retention. PAST SURGICAL HISTORY: Bilateral cataract ectomy, right femoral artery stents, skin cancer removal, hysterectomy, colonoscopy. PAST PSYCHIATRIC HISTORY: Anxiety and dementia. SOCIAL HISTORY: Again, the patient lives in assisted living facility with her . She ambulates with a walker. She smokes less than 4 cigarettes per day. She continues to drink a small amount of vodka per day. Denies drugs. She is a DNR and her would be her surrogate decision maker. FAMILY HISTORY: No history of coronary artery disease, stroke, or cancer. ALLERGIES: ALBUTEROL, BUDESONIDE, FORMOTEROL, SHRIMP, AND SYMBICORT. CURRENT MEDICATIONS: 1. Requip 0.25 mg 2 p.o. b.i.d. 2. Colace 100 mg daily. 3. Spiriva HandiHaler 18 mcg inhaled daily. 4. Losartan 25 mg daily. 5. Tramadol 50 mg q.6 hours p.r.n. 6. Pantoprazole 40 mg p.o. daily. 7. Namenda 5 mg 2 p.o. q.a.m. and 1 p.o. q.p.m. 8. Maalox p.r.n. 9. Nitroglycerin p.r.n. 10. Acetaminophen p.r.n. 11. Folic acid 1 mg daily. 12. Loperamide p.r.n. 13. Milk of magnesia p.r.n. 14. Simvastatin 20 mg daily. 15. Zoloft 50 mg p.o. daily. PHYSICAL EXAMINATION: VITAL SIGNS: Initial blood pressure was 196/101, most recent was 173/87; pulse 82, respirations 17, O2 sats 95% on room air. GENERAL APPEARANCE: Age-appropriate female. She is awake and alert, pleasant and cooperative. She is very thin. HEENT: Pupils are irregularly shaped and asymmetric and not significantly reactive to light challenge. She has no OP lesions. Denture is in place. NECK: Supple and symmetric without lymphadenopathy, JVD, or bruits. HEART: Regular with occasional ectopy, but no murmurs. LUNGS: Diminished, but clear bilaterally with no wheezes or rales. ABDOMEN: Soft, nondistended. Positive bowel sounds. She is mildly diffusely tender around the upper abdomen. She does have a prominent aortic pulse and an abdominal bruit noted. EXTREMITIES: Reveal no cyanosis, clubbing, or edema. She has diminished posterior tibial pulse on the right, but has dorsalis pedis, both present on the left. NEUROLOGICAL: The patient appears to be nonfocal and well intact. She appears to have fairly good memory and recall and is appropriately oriented. PSYCH: The patient has normal affect and behavior. LABORATORY DATA: White count 9.6, hemoglobin 11.2, platelets 252. Potassium is 3.3, BNP 143, otherwise chemistries normal. Chest x-ray shows significant atherosclerotic disease of the aorta, but otherwise appears relatively clear. Official read is still pending. EKG shows a right bundle branch block at 86 beats per minute. IMPRESSION AND PLAN: 1. Chest pain in a patient with ongoing tobacco abuse and elevated blood pressures. Her symptoms were relieved with nitroglycerin. She currently is completely pain free. She most recently had a stress test in 2015, which was negative. The patient will be placed on observation. Continue to monitor with telemetry and serial enzymes. We will keep her n.p.o. in case we can get her results back early enough in the day to consider stress testing today. 2. History of lung nodule in February [address] scan. The patient needs a repeat CT in order to assess for potential growth of this lesion and ensure that this is not related to her current chest pain. 3. Abdominal aortic aneurysm. It is certainly possible that the patient's symptoms could be related to this aneurysm. She has been deemed a nonsurgical or a non-interventional candidate by Dr. Ferrara because of comorbidities and ongoing tobacco abuse. We will likely be able to see the upper portion of this on the CT of the chest and it is certainly possible this could be contributing to her current symptoms. Unfortunately, it does not appear to be a significant opportunity to intervene. We will ensure that we keep the blood pressure under reasonable control. 4. Hyperlipidemia. Continue with statin. 5. Hypertension. We will continue the patient's usual home regimen with p.r.n' s. To ensure the blood pressure is adequately controlled in light of the abdominal aneurysm. 6. Chronic obstructive pulmonary disease. The patient is stable with no evidence of decompensation. Continue with her usual home medications. She appears to be allergic to bronchodilators. 7. History of restless legs syndrome. Continue with the Requip. 8. History of dementia. Continue with the Namenda, although the patient appears to be a pretty good historical source at the moment. Job ID: [id number] [facility]
[2018-09-25 07:04] LABS: Troponin I 0.011 ng/mL (< 0.028)
--- NOTE | 2018-09-25 07:31 | RAD ---
XR Chest 1 View Portable History: [Chest pain] Comparison: Chest radiograph February 20, 2019 Findings: Lungs are hyperinflated. Scarring in the lung apices. Dense calcifications of the aorta which is ectatic. No acute osseous abnormality. Impression: Chronic findings. No acute intrathoracic abnormality.
[2018-09-25] MEDS ORDERED: rOPINIRole HCl 0.5 MG TAB PO SCH (09:00)
[2018-09-25] MEDS ORDERED: Losartan 25 MG TAB PO SCH (09:00)
[2018-09-25] MEDS ORDERED: Docusate 100 MG CAP PO SCH (09:00)
--- NOTE | 2018-09-25 09:14 | CT ---
CT THORAX NONCONTRAST: DATE: 09/25/18 HISTORY: 82-year-old female for follow-up of right upper lobe pulmonary nodule. COMPARISON: CT pulmonary angiogram of 02/17/[address] of 06/20/16. FINDINGS: The previously described approximately 1 cm pulmonary nodule at the lateral aspect of the right upper lobe has become more ill-defined. While the central core that is of soft tissue attenuation has now shrunk to a diameter of approximately 0.3 cm, the outer ill-defined small infiltrate-like halo has be come larger, and this is difficult to measure (axial image 23 of 63, series 3; coronal image 58 of 12 5, series 601). This infiltrate-like halo is contiguous with an adjacent region of prominent anterior segment right upper lobe pulmonary scar located anterior to it. Again noted are the diffuse, moderate emphysematous changes of the lungs, mostly centrilobular emphys john, most pronounced in the upper lobes. Again noted is the severe atherosclerotic calcification and heterogeneous ectasia of the thoracic aor ta, especially of the descending thoracic aorta. The proximal descending aorta has a focal lateral ou tpouching with maximum total transverse dimension of approximately 3.8 cm. The more inferior portion of the descending thoracic aorta, slightly superior to the diaphragm, has a transverse dimension of a pproximately 3.7 cm. The proximal abdominal aorta is aneurysmally dilated to at least 4.2 cm. This is incompletely evaluated. No pleural effusion or pneumothorax. No pulmonary edema. The triangular chronic focal air space opacity located in the right middle lobe, sandwiched between t he minor fissure and the major fissure, is unchanged since 06/20/16. There is also heavy atherosclero tic calcification of the LAD, and left main, coronary arteries. No cardiomegaly or pericardial effusi on. Trachea and left and right mainstem bronchi are grossly clear and patent. IMPRESSION: 1. The right upper lobe pulmonary nodule has changed since 02/17/18. The central soft tissue density core has shrunk, while the infiltrate-like surrounding halo has expanded (semisolid component). 2. Moderate centrilobular emphysema. 3. Ectasia, severe atherosclerosis, and multiple focal dilations of the aorta, including abdominal a ortic aneurysm that is at least 4.2 cm in diameter (incompletely imaged). No interval change compared to 02/17/18 regarding the aorta. 4. Chronic wedge-shaped focal opacity in the right middle lobe, unchanged. 5. Coronary atherosclerotic disease. KWABENA Thomson POS: LUIS
[2018-09-25] MEDS ORDERED: Regadenoson 0.4 MG/5 ML SYRINGE ONE (09:55)
[2018-09-25 10:19] LABS: Troponin I 0.014 ng/mL (< 0.028)
--- NOTE | 2018-09-25 14:47 | NM ---
EXAM: Nuclear medicine cardiac perfusion examination with ejection fraction HISTORY: Chest pain TECHNIQUE: Rest images: 11.0 mCi technetium 99m sestamibi Stress images: 33.0 mCi of technetium 9M sestamibi; Lexiscan COMPARISON: 04/11/2016 FINDINGS: Tomographic images: No fixed or reversible perfusion defects. Gated images: Normal wall motion and ejection fraction of greater than 70%. EDV: 32 mL LHR: 0.2 TID: 1.16 IMPRESSION: No evidence of ischemia
[2018-09-25 16:26] VITALS: BP 150/78; TEMP 97.4
[2018-09-25] MEDS ORDERED: Atorvastatin Calcium 10 MG TAB PO SCH (21:00)
--- NOTE | 2018-09-26 14:03 | DIS ---
DATE OF ADMISSION: 09/25/2018 DATE OF DISCHARGE: 09/25/2018 This is STACIE Bess dictating a report for Fermin Rutherford MD. HOSPITAL COURSE: Ms. Emerson is an 82-year-old woman who was admitted with chest pain that woke her from sleep and improved with nitroglycerin. She underwent serial troponins which were negative. She had a CT done of her chest, which demonstrated a right upper lobe pulmonary nodule that has changed in appearance compared to study done in February 2018. The central soft-tissue density core has shrunk in size; however, the infiltrate like surrounding halo has expanded. She is noted to have moderate centrilobular emphysema. Also noted to have ectasia with severe atherosclerosis and multiple focal dilations of the aorta including an abdominal aortic aneurysm that is at least 4.2 cm in diameter. No interval change since February 2018. The patient previously evaluated by Dr. Ferrara who felt she was not eligible for any surgical intervention. She also had a chronic wedge-shaped focal opacity in the right middle lobe that remains unchanged and coronary atherosclerotic disease. The patient was cleared for stress test given the serial troponins being negative. The stress test came back showing no evidence of ischemia with an EF greater than 70%. The patient remained without any further episodes of chest pain. She does have shortness of breath at baseline and is on oxygen at home. She does have a chest x-ray done on initial presentation, which was unremarkable for any acute abnormalities. The patient had orthostatic blood pressures checked which were normal. She was medically cleared for discharge home with plans to follow up with her primary care physician regarding the lung changes on her CT. REVIEW OF SYSTEMS: The patient states she has had no recurring chest pain. Denies any worsening in her shortness of breath from her usual baseline. Denies having any cough or hemoptysis. No fevers, chills, or sweats. No headaches or dizziness. No abdominal pain or cramping. No bowel changes. No urinary symptoms. All other review of systems are negative. PHYSICAL EXAMINATION: GENERAL: The patient appears well developed, well nourished, is in no acute distress. VITAL SIGNS: Temperature 97.2, pulse 65, respirations 15, O2 saturation 100% on 2 L, blood pressure 132/66, supine, sitting 126/61, standing 110/56. HEENT: Normocephalic and atraumatic. Pupils are equal, round, and reactive to light. Sclerae without icterus. Oropharynx is clear. NECK: Supple. No lymphadenopathy. LUNGS: Decreased breath sounds at the bilateral bases. CARDIAC: Regular rate and rhythm. ABDOMEN: Soft, nontender, nondistended. No guarding or rigidity. EXTREMITIES: No lower leg edema or swelling. NEUROLOGIC: Alert and oriented x3. SKIN: Without rash or jaundice. LABORATORY DATA: White blood count 9.6, hemoglobin 11.2, platelets 252. Sodium 137, potassium 3.3, BUN 15, creatinine 0.74, GFR 75, glucose 90, calcium 9.6, total bilirubin 0.3, AST 21, ALT 10, alkaline phosphatase 100. CK 32, troponin negative x3. BNP 142.9. Serum protein 6.2, albumin 3.8. IMAGING DATA: As mentioned above in hospital course. CONDITION: Stable at discharge. ACTIVITY: As tolerated. DIET: Heart healthy. DISCHARGE MEDICATIONS: The patient advised to resume regular home medications. FOLLOWUP: The patient is advised to follow up with her primary care physician within 1 week. Advised to discuss lung changes seen on CT with primary care physician for further workup/management or referral to Pulmonology. DISPOSITION: The patient medically cleared for discharge home on 09/25/2018. The patient's case was discussed with Dr. Rutherford, who agrees with plan of care as described above. Job ID: [id number]
--- NOTE | 2018-09-27 09:46 | EKG ---
Test Reason : Blood Pressure : / mmHG Vent. Rate : 086 BPM Atrial Rate : 086 BPM P-R Int : 126 ms QRS Dur : 110 ms QT Int : 410 ms P-R-T Axes : 072 248 048 degrees QTc Int : 490 ms Normal sinus rhythm Possible Left atrial enlargement Right bundle branch block Cannot rule out Anterior infarct , age undetermined Abnormal ECG Confirmed by KIKE DICKENS DO ([id number]), fashion editor BECK CASTANEDA ([id number]) on 09/27/2018 9:46:28 AM Referred By: Confirmed By:KIKE DICKENS DO
== END 2018-09-25 17:57 | disposition home or self-care (01) ==
LOC: ERS 02:37 → 2SW 04:45
PROVIDERS: ADMIT Internal Medicine; ATTEND Internal Medicine
DX: R07.9 Chest pain, unspecified (principal); F17.210 Nicotine dependence, cigarettes, uncomplicated; J96.10 Chronic respiratory failure, unspecified whether with hypoxia or hypercapnia; I10 Essential (primary) hypertension; E78.5 Hyperlipidemia, unspecified; G25.81 Restless legs syndrome; I71.4 Abdominal aortic aneurysm, without rupture; F03.90 Unspecified dementia, unspecified severity, without behavioral disturbance, psychotic disturbance, mood disturbance, and anxiety; F41.9 Anxiety disorder, unspecified; J43.2 Centrilobular emphysema; I70.0 Atherosclerosis of aorta; I25.10 Atherosclerotic heart disease of native coronary artery without angina pectoris; R91.1 Solitary pulmonary nodule; Z86.73 Personal history of transient ischemic attack (TIA), and cerebral infarction without residual deficits; Z66 Do not resuscitate; Z88.8 Allergy status to other drugs, medicaments and biological substances; Z91.013 Allergy to seafood; Z79.899 Other long term (current) drug therapy
CPT/HCPCS: 71045; 71250; 78452; 80053; 82550; 83880; 84484 ×2; 85025; 93005; 94760; 96374; 99285; A9500; G0378; 36415; 93017; J2785

== ENCOUNTER 2019-01-28 18:18 | Observation (INO) | payer MEDICARE, OTHER ==
[2019-01-28] MEDS ORDERED: HYDROcodone/Acetaminophen 5/325 mg Tablet ONE (18:45)
--- NOTE | 2019-01-28 18:45 | RAD ---
EXAM: 3 views of the right wrist HISTORY: Wrist pain after fall COMPARISON: None FINDINGS: 3 views of the right wrist shows obstruction of the trabecular pattern in the metaphysis of the distal radius consistent with a fracture. Mild soft tissue swelling is seen. Degenerative changes seen in the first CMC joint. No significant degenerative changes seen in the wrist. IMPRESSION: Distal radius fracture
--- NOTE | 2019-01-28 18:46 | RAD ---
EXAM: 2 views of the right hip HISTORY: Right hip pain after fall COMPARISON: None FINDINGS: 2 views of the right hip shows no evidence of acute fracture or dislocation. No degenerativ e changes are seen. No soft tissue swelling is present. Vascular calcifications are seen. IMPRESSION: No evidence of acute osseous abnormality.
--- NOTE | 2019-01-28 18:47 | RAD ---
Exam: Single view of the pelvis HISTORY: Pelvic and hip pain after fall COMPARISON: None FINDINGS: A single view the pelvis shows no evidence of acute fracture or dislocation. No degenerativ e changes seen in either hip. Vascular calcifications are seen. There is a stent in the right common iliac location. IMPRESSION: No evidence of acute osseous abnormality.
--- NOTE | 2019-01-28 18:54 | CT ---
EXAM: CT brain without contrast HISTORY: Fall with head trauma COMPARISON: 05/10/2015 TECHNIQUE: Multiple contiguous axial images were obtained and a CT of the brain without contrast. FINDINGS: There are scattered hypodensities in the subcortical and periventricular white matter consi stent with small vessel ischemic disease. Diffuse cerebral atrophy is seen. There is no evidence of hydrocephalus, intracranial hemorrhage, or extra-axial fluid collection. The calvarium and overlying soft tissues are unremarkable. The visualized paranasal sinuses and masto id air cells are well aerated. IMPRESSION: No evidence of acute intracranial abnormality
--- NOTE | 2019-01-28 20:10 | CT ---
EXAM: CT right hip without contrast HISTORY: Pelvic and hip pain after fall COMPARISON: Right hip radiograph 01/28/2019 TECHNIQUE: Multiple contiguous axial images were obtained and a CT of the pelvis without contrast. Sa gittal and coronal reformats were performed. FINDINGS: There are mildly displaced fractures of the right superior and inferior pubic rami. No frac ture of either proximal femur is seen. No significant degenerative changes are seen. There is enlargement of the infrarenal aorta and calcification are seen within the arteries. A stent is seen in the right common iliac region. The visualized intrapelvic structures are otherwise unremarkable. The soft tissues surrounding the pelvis are unremarkable. IMPRESSION: 1. Right superior and inferior pubic rami fractures 2. Abdominal aortic aneurysm
--- NOTE | 2019-01-28 23:54 | HP ---
This is Julius Kellogg PA-C dictating a report for Alex Edwards MD. REQUESTING PHYSICIAN: Dr. Orozco. CONSULTATIONS: Orthopedics, Dr. Nunes. HISTORY OF PRESENT ILLNESS: The patient is an 83-year-old woman, who lives in assisted living apartment with her when she reportedly tripped and fell this evening. She is unsure if she struck her head, but denied loss of consciousness. Her was there and civil division deputy sheriff came in immediately afterwards, who called 911. The patient was brought to the emergency department, where she underwent evaluation and examination and was noted to have right distal radius fracture, and right inferior and superior pubic rami fractures. The patient was going to be transferred to [facility] for inpatient rehab, but there was no bed availability at which time we were asked to admit the patient for pain control and await placement decisions. ALLERGIES: ALBUTEROL, BUDESONIDE, SYMBICORT. THE PATIENT IS UNSURE OF THE REACTION. CURRENT MEDICATIONS: 1. Spiriva. 2. Losartan. 3. Tramadol. 4. Pantoprazole. 5. Namenda. 6. Maalox. 7. Nitroglycerin. 8. Folic acid. 9. Loperamide. 10. Milk of magnesia. 11. Simvastatin. 12. Zoloft. 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 PAST SURGICAL HISTORY: Tonsillectomy, retinal surgery, hysterectomy, skin biopsy after skin cancer, cataract surgery, depression. SOCIAL HISTORY: The patient has extensive tobacco use history, but she currently only smokes approximately four cigarettes per day. She drinks "on occasion." Further questioning, the patient states that she does have a drink every day. Again, she lives with her spouse at the [facility]. REVIEW OF SYSTEMS: A 10-point review of systems is negative as otherwise stated. PHYSICAL EXAMINATION: VITAL SIGNS: Blood pressure 157/90, heart rate 90, respirations 19, oxygen saturations 92% on 2 L via nasal cannula, temperature is 97.8. GENERAL: The patient is resting comfortably in bed. She is awake, alert, conversant, and appropriate. [place] Coma Scale is 15. HEENT: Head is normocephalic and atraumatic. Eyes, extraocular motion is intact. Pupils are reactive. Nose is atraumatic without discharge. Ears are atraumatic without discharge. Oropharynx is clear. NECK: Nontender. Trachea is midline. No JVD. CHEST: Clear to auscultation with good inspiratory and expiratory effort. HEART: Regular rate and rhythm. ABDOMEN: Soft, flat, and nontender with active bowel sounds. PELVIS: Stable with pain to the right hip and buttock area consistent with her fracture. EXTREMITIES: Neurovascularly intact x4. Right upper extremity reportedly has a skin tear on the elbow. It has been dressed and splinted. The patient does have a sugar-tong splint and sling on her right upper extremity. The extremities again are neurovascularly intact x4. BACK: By report is atraumatic and nontender. LABORATORY DATA: There are no labs to review. Radiographs, CT of the brain without contrast shows no evidence of acute intracranial abnormality. AP pelvis. No evidence of acute osseous abnormality. Use of the right hip shows no evidence of acute osseous abnormality. Use of the right wrist shows distal radius fracture. CT of the pelvis shows right superior and inferior pubic rami fractures with stable appearing abdominal aortic aneurysm. ASSESSMENT: 1. Status post ground level fall. 2. Right distal radius fracture. 3. Right inferior and superior pubic rami fracture. 4. History of chronic obstructive pulmonary disease. 5. History of cerebrovascular accident with slight right-sided weakness. PLAN: To admit the patient to the surgical floor for observation and await placement decision. We will ask Orthopedics to evaluate her in the morning and make sure that they are happy with her splint and her weightbearing as tolerated status. The patient will have pain control, pulmonary toilet, gastritis and mechanical VTE prophylaxis. The evaluation, examination, laboratory, and radiographic findings will be discussed with Dr. Edwards after this dictation. Job ID: [id number] [facility]
[2019-01-29] MEDS ORDERED: Sodium Chloride 0.9% 1,000 ML IV SCH (00:36)
[2019-01-29] MEDS ORDERED: Dextrose 50% Abboject 50 ML SYRINGE SLOW IVP PRN (00:36)
[2019-01-29] MEDS ORDERED: Ondansetron PF 4 MG/2 ML Vial IVP PRN (00:36)
[2019-01-29] MEDS ORDERED: traMADol HCl 50 MG TAB PO PRN (00:36)
[2019-01-29] MEDS ORDERED: Ondansetron ODT 4 MG TAB PO PRN (00:36)
[2019-01-29] MEDS ORDERED: Dextrose 5% in Water 1,000 ML IV PRN (00:36)
[2019-01-29] MEDS ORDERED: hydrALAZINE 20 MG/ML VIAL SLOW IVP PRN (00:36)
[2019-01-29 00:53] VITALS: BMI 16.7
[2019-01-29] MEDS: Cyclobenzaprine 10 MG TAB PO PRN ×2 (00:53→11:41)
[2019-01-29] MEDS: traMADol HCl 50 MG TAB PO PRN ×2 (00:54→08:21)
[2019-01-29] MEDS: Ibuprofen 200 MG TAB PO SCH ×4 (00:55→18:02)
[2019-01-29] MEDS ORDERED: Acetaminophen 500 MG TAB PO SCH (01:00)
[2019-01-29] MEDS: Acetaminophen 500 MG TAB PO SCH ×4 (05:16→18:01)
[2019-01-29 05:45] LABS: #Basophils 0.1 thou/uL (0.0-0.2); #Eosinphils 0.1 thou/uL (0.0-0.7); #Lymphocytes 1.6 thou/uL (1.20-3.40); #Monocytes 0.8 thou/uL (0.11-0.59); #Neutrophils 6.3 thou/uL (1.40-6.50); %Basophils 0.6 % (0.0-1.0); %Eosinophils 1.5 % (0.0-10.0); %Lymphocytes 18.5 % (21.0-51.0); %Monocytes 8.6 % (0.0-10.0); %Neutrophils 70.8 % (42.0-75.0); Hemoglobin 10.9 g/dL (12.0-16.0); Mean Corpuscular HGB CONC 33.2 g/dL (32.0-36.0); Mean Corpuscular Hemoglobin 31.1 pg (27.0-31.0); Mean Corpuscular Volume 93.6 fL (78.0-98.0); Mean Platelet Volume 7.4 fL (7.4-10.4); Platelet Count 156 thou/uL (130-400); RBC Distribution Width 12.9 % (11.5-14.5); Red Blood Cell (RBC) Count 3.49 mill/uL (4.20-5.40); White Blood Cell (WBC) Count 8.9 thou/uL (4.8-10.8)
[2019-01-29 05:47] LABS: INR-International Normal Ratio 1.1
[2019-01-29 06:03] LABS: Anion Gap 9 mmol/L (10-20); BUN (Urea Nitrogen) 15 mg/dL (9.8-20.1); Calc. Creatinine Clearance 30 mL/min (70-130); Calcium 9.5 mg/dL (7.8-10.44); Carbon Dioxide 31 mmol/L (23-31); Chloride 99 mmol/L (98-107); Estimated GFR-MDRD 65; Glucose 110 mg/dL (83-110); Potassium 3.8 mmol/L (3.5-5.1); Sodium 135 mmol/L (136-145)
[2019-01-29 08:12] LABS: Magnesium 1.7 mg/dL (1.6-2.6); Phosphorus 4.1 mg/dL (2.3-4.7)
[2019-01-29] MEDS: Famotidine 20 MG TAB PO SCH ×2 (08:19→20:44)
--- NOTE | 2019-01-29 09:44 | CON ---
DATE OF CONSULTATION: 01/29/2019 This is Carlota Willis PA-C dictating a report for Miguel Nunes MD. REQUESTING PHYSICIAN: Trauma Services. CONSULTING PHYSICIAN: Miguel Nunes MD REASON FOR CONSULTATION: Pubic rami fractures and right distal radius fracture. HISTORY OF PRESENT ILLNESS: This is an 83-year-old female, who lives in assisted living apartment with her when she reportedly tripped and fell last evening. It is unsure whether she struck her head but she did deny loss of consciousness. Her was present and keeper came in immediately after her fall and called 911. Upon workup in the emergency department, patient was found to have a right distal radius fracture as well as right inferior and superior pubic rami fractures. The patient was going to be transferred to [facility] for inpatient rehab, but there was no bed availability at that time. Trauma was asked to admit the patient. We have been consulted for distal radius and inferior and superior pubic rami fractures. Currently at bedside, the patient denies any other pain other than what is in her right wrist and in her pelvis. She states it hurts when she moves her right leg. She feels the pain into her groin. She denies any numbness or tingling in her legs. She states she normally ambulates independently. 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 PAST SURGICAL HISTORY: Tonsillectomy, retinal surgery, hysterectomy, skin biopsy after skin cancer, cataract surgery, depression. SOCIAL HISTORY: The patient has extensive tobacco use history, but she currently only smokes approximately four cigarettes per day. She drinks every day. She lives with her spouse at [facility] in the assisted living portion. FAMILY HISTORY: Reviewed and noncontributory. REVIEW OF SYSTEMS: A 10-point review of systems is conducted and otherwise negative except for stated above. PHYSICAL EXAMINATION: VITAL SIGNS: Temperature 97.8, pulse of 63, respiratory rate of 14, blood pressure of 136/79, and the O2 saturation of 100% on 2 L nasal cannula oxygen. GENERAL: The patient is awake and alert. She is pleasant and cooperative. She answers all questions appropriately. She is in no apparent distress. HEENT: Head is normocephalic and atraumatic. NECK: Supple. Trachea is midline. LUNGS: Breathing is nonlabored. EXTREMITIES: The patient is noted to have a sling present to the right upper extremity. She does have a sugar-tong forearm splint intact to the right forearm. She is able to move all digits. Distal neurovascular status is intact. Skin is free of lesions and rashes at the splint edges. Evaluation of bilateral lower extremity shows painful log roll on the right side. She is able to wiggle her toes on both feet. Sensation intact distally. Capillary refill 3 seconds. SKIN: Intact to bilateral lower extremities. RADIOGRAPHIC FINDINGS: Reviewed including AP pelvis shows right inferior and superior pubic rami fractures. Views of the right wrist show a minimally displaced distal radius fracture with overall acceptable alignment. PLAN: At this time, she may be treated conservatively for both of these fracture areas. No surgical intervention is anticipated. We will transition her from a sugar-tong splint into a Velcro volar wrist splints that she may ambulate with a platform walker on the right upper extremity. She is weightbearing as tolerated for the inferior and superior pubic rami fractures. She may experience some discomfort with this initially, but with time and healing this pain will lessen. I have discussed this plan of care with her and she verbalizes understanding. We would like to see her in the orthopedic clinic in 2 to 3 weeks for followup evaluation and re-x-ray. Job ID: [id number]
[2019-01-29] MEDS: Aspirin 81 mg Enteric Coated Tablet PO SCH ×2 (09:49→20:43)
[2019-01-29] MEDS ORDERED: Gabapentin 100 MG CAP PO SCH (10:45)
--- NOTE | 2019-01-29 13:43 | PRG ---
DATE OF SERVICE: 01/29/2019 SUBJECTIVE: The patient is an 83-year-old female, hospital day #2, status post right distal radius fracture and right inferior and superior pubic rami fractures. Orthopedic Surgery has been consulted at this time. Her injuries are going to be treated conservatively. She is currently waiting for a bed in inpatient rehab. Today, she reported some pain, so 100 mg of gabapentin was started. She is otherwise agreeable to her current plan of care with no other complaints. OBJECTIVE: VITAL SIGNS: Temperature 97.8 Fahrenheit, pulse 63, respiratory rate 14, oxygen saturation 100% on 2 L nasal cannula, and blood pressure 136/79. GENERAL: Resting in bed, in a slight amount of pain. HEENT: Unremarkable. CARDIAC: Regular rate and rhythm. LUNGS: Clear to auscultation bilaterally. ABDOMEN: Soft and nontender. Positive bowel sounds. EXTREMITIES: Bandaging on right upper extremity, clean, dry, and intact. LABORATORY AND DIAGNOSTIC DATA: White blood cell count 8.9, hemoglobin 10.9, hematocrit 32.7, platelet count 156. Sodium 135, potassium 3.8, chloride 99, carbon dioxide 31, BUN 15, creatinine 0.83, phosphorus 4.1, and magnesium 1.7. ASSESSMENT: 1. Status post ground level fall, hospital day #2. 2. Right distal radius fracture. 3. Right inferior and superior pubic rami fracture. 4. History of chronic obstructive pulmonary disease, cerebrovascular accident with mild right-sided weakness, hyperlipidemia, peripheral vascular disease, restless legs syndrome, and Alzheimer disease. PLAN: 1. Add gabapentin to pain regimen today, will continue monitoring pain and make adjustments accordingly for pain control. 2. Orthopedics is going to transition the patient to Velcro volar wrist splint, and recommend weightbearing as tolerated for her right inferior and superior rami fracture. 3. Pending placement for rehab at this time, we will continue to discuss with the case management. 4. 81 mg of aspirin p.o. b.i.d. for VTE prophylaxis. 5. Oxygen as necessary to keep oxygen saturation greater than 90%, encouraging incentive spirometry. The patient was seen and evaluated by Dr. Unger during morning rounds. Discussed plan of care with the patient and family, who are in agreement. Job ID: [id number] [facility]
[2019-01-29] MEDS ORDERED: Sodium Chloride 0.9% 500 ML IV SCH (13:45)
[2019-01-29] MEDS ORDERED: Mag-Al 1200 mg/1200 mg/30 ML UDCUP PO PRN (15:05)
[2019-01-29] MEDS ORDERED: Folic Acid 1 MG TAB PO PRN (15:05)
[2019-01-29 18:03] LABS: Bacteria/HPF None Seen HPF (None Seen); Bilirubin Negative (Negative); Blood, Urine Negative (Negative); Clarity Clear (Clear); Glucose, Urine (Dipstick) Normal (Negative); Leukocyte Negative Leu/uL (Negative); Nitrite Negative (Negative); Protein, Urine (Dipstick) 10 mg/dL (Neg-Trace); RBC/HPF 0-3 HPF (0-3); Squamous Epithelial 0-3 HPF (0-3); Urobilinogen Normal mg/dL (Less than 2); WBC/HPF 0-3 HPF (0-3)
[2019-01-29 18:04] LABS: Urine Culture Reflex No No
[2019-01-29] MEDS: rOPINIRole HCl 0.25 MG TAB PO SCH (20:43)
[2019-01-29] MEDS ORDERED: Atorvastatin Calcium 10 MG TAB PO SCH (21:00)
[2019-01-30] MEDS: Acetaminophen 500 MG TAB PO SCH ×3 (00:43→12:59)
[2019-01-30] MEDS: Ibuprofen 200 MG TAB PO SCH ×2 (00:43→09:29)
[2019-01-30] MEDS ORDERED: Losartan 25 MG TAB PO SCH (09:00)
[2019-01-30] MEDS ORDERED: Gabapentin 100 MG CAP PO SCH (09:00)
[2019-01-30] MEDS: Aspirin 81 mg Enteric Coated Tablet PO SCH (09:30)
[2019-01-30] MEDS: Sodium Chloride 0.9% 500 ML IV SCH ×2 (09:55→12:05)
[2019-01-30] MEDS: rOPINIRole HCl 0.25 MG TAB PO SCH (09:55)
[2019-01-30 15:18] VITALS: BP 73/45; TEMP 97.4
[2019-01-30] MEDS ORDERED: Famotidine 20 MG TAB PO SCH (21:00)
--- NOTE | 2019-01-31 03:25 | DIS ---
DATE OF ADMISSION: 01/28/2019 DATE OF DISCHARGE: 01/30/2019 ADMISSION DIAGNOSES: 1. Status post ground level fall. 2. Right distal radius fracture. 3. Right inferior and superior pubic rami fracture. 4. History of chronic obstructive pulmonary disease, cerebrovascular accident, peripheral vascular disease, Alzheimer disease. DISCHARGE DIAGNOSES: 1. Status post ground level fall. 2. Right distal radius fracture, conservative treatment per Orthopedic. 3. Right inferior and superior pubic rami fracture, conservative treatment per Orthopedic. 4. History of chronic obstructive pulmonary disease, cerebrovascular accident, peripheral vascular disease, and Alzheimer disease. CONSULTING PHYSICIANS: 1. Miguel Nunes MD, Orthopedic. 2. Carlota Willis PA-C. PROCEDURE PERFORMED: None. HOSPITAL COURSE: Ms. Emerson is an 83-year-old female, who lives in assisted living apartment with her and reports mechanical ground level fall. She sustained left radius fracture and pelvic fracture, stable. She has been treated conservatively per Orthopedic. During the course of stay in the hospital, the patient has been stable. GCS 15. Vital signs stable. She developed no fever or shortness of breath. Her lab results within normal range with chronic anemia. Her pain is well controlled. Her urine is adequate and she has normal bowel regimen. She will be transferred back to her assisted living facility for continued care and PT/OT. PHYSICAL EXAMINATION: GENERAL: The patient is lying down in bed comfortable with no acute distress. VITAL SIGNS: This morning, temperature 97.4, heart rate 96, respiratory rate 14 , O2 saturation 94 on room air, and blood pressure 94/56. LUNGS: Clear bilaterally. HEART: Regular rate and rhythm. ABDOMEN: Soft, nondistended. EXTREMITIES: Neurovascularly intact x4. NEUROLOGIC: No new neurology deficits. GCS14 because the patient is a little bit confused due to Alzheimer disease that is her baseline mental status. DISCHARGE DISPOSITION: Rehab [facility]. DISCHARGE INSTRUCTIONS: The patient is to take medication as directed. The patient will be working with PT/OT. The patient will be continued on conservative treatment for right wrist fracture using splint and sling, and pelvic fracture conservative treatment with Orthopedic. The patient will need to follow up with Orthopedic in clinic in 2 to 3 weeks. DISCHARGE MEDICATIONS: 1. Tylenol. 2. Aspirin. 3. Atorvastatin. 4. Flexeril. 5. Famotidine. 6. Folic acid. 7. Gabapentin. 8. Ibuprofen. 9. DuoNeb. 10. Losartan. 11. Memantine. 12. Sertraline. 13. Ropinirole. 14. Tramadol. Job ID: [id number] [facility]
== END 2019-01-30 14:05 ==
LOC: ERS 18:18 → SJJU 22:47
PROVIDERS: ADMIT Specialist; ATTEND Specialist
DX: S59.201A Unspecified physeal fracture of lower end of radius, right arm, initial encounter for closed fracture (principal); S32.511A Fracture of superior rim of right pubis, initial encounter for closed fracture; S32.591A Other specified fracture of right pubis, initial encounter for closed fracture; J44.9 Chronic obstructive pulmonary disease, unspecified; I69.351 Hemiplegia and hemiparesis following cerebral infarction affecting right dominant side; I71.4 Abdominal aortic aneurysm, without rupture; G30.9 Alzheimer's disease, unspecified; F02.80 Dementia in other diseases classified elsewhere, unspecified severity, without behavioral disturbance, psychotic disturbance, mood disturbance, and anxiety; G25.81 Restless legs syndrome; I73.9 Peripheral vascular disease, unspecified; F17.210 Nicotine dependence, cigarettes, uncomplicated; E78.00 Pure hypercholesterolemia, unspecified; D64.9 Anemia, unspecified; Z79.899 Other long term (current) drug therapy; Z88.8 Allergy status to other drugs, medicaments and biological substances; Z95.820 Peripheral vascular angioplasty status with implants and grafts; W01.0XXA Fall on same level from slipping, tripping and stumbling without subsequent striking against object, initial encounter
CPT/HCPCS: 29125; 36415; 70450; 72170; 80048; 81001; 83735; 84100; 85025; 85610; 85730; 94640; G0390; J7620

== ENCOUNTER 2019-01-30 15:44 | Inpatient (IN) | payer MEDICARE, OTHER ==
--- NOTE | 2019-01-30 16:19 | RAD ---
EXAM: Portable chest PROVIDED CLINICAL HISTORY: Altered mental status COMPARISON: 09/25/2018 FINDINGS: Cardiac and mediastinal silhouette is unchanged in appearance. Ectasia and tortuosity of the thoracic aorta is redemonstrated. Vascular calcifications are again seen. Emphysematous changes are again noted. No focal consolidation, pleural fluid or pneumothorax evident. IMPRESSION: No evidence for an acute cardiopulmonary process.
--- NOTE | 2019-01-30 16:49 | CT ---
Exam: CT brain PROVIDED CLINICAL HISTORY: Syncope COMPARISON: 01/28/2019 FINDINGS: The ventricular system is normal in size and morphology. No evidence for intracranial hemorrhage or mass effect. The extracranial soft tissues and osseous structures demonstrate no evidence for an acute abnormality. Chronic microvascular ischemic changes are redemonstrated, as is cerebral volume l oss. IMPRESSION: No evidence for intracranial hemorrhage or mass effect.
[2019-01-30 17:19] LABS: #Basophils 0.1 thou/uL (0.0-0.2); #Eosinphils 0.2 thou/uL (0.0-0.7); #Lymphocytes 1.7 thou/uL (1.20-3.40); #Monocytes 0.8 thou/uL (0.11-0.59); #Neutrophils 9.5 thou/uL (1.40-6.50); %Basophils 0.5 % (0.0-1.0); %Eosinophils 1.5 % (0.0-10.0); %Monocytes 6.1 % (0.0-10.0); %Neutrophils 77.8 % (42.0-75.0); Hemoglobin 10.6 g/dL (12.0-16.0); Mean Corpuscular HGB CONC 32.3 g/dL (32.0-36.0); Mean Corpuscular Hemoglobin 31.1 pg (27.0-31.0); Mean Corpuscular Volume 96.2 fL (78.0-98.0); Mean Platelet Volume 7.7 fL (7.4-10.4); Platelet Count 167 thou/uL (130-400); RBC Distribution Width 13.1 % (11.5-14.5); Red Blood Cell (RBC) Count 3.42 mill/uL (4.20-5.40); White Blood Cell (WBC) Count 12.1 thou/uL (4.8-10.8)
[2019-01-30 17:48] LABS: ALT (SGPT) 16 U/L (8-55); AST (SGOT) 45 U/L (5-34); Albumin 3.7 g/dL (3.4-4.8); Alkaline Phosphatase 97 U/L (40-150); Anion Gap 14 mmol/L (10-20); BUN (Urea Nitrogen) 31 mg/dL (9.8-20.1); Bilirubin, Total 0.5 mg/dL (0.2-1.2); Calc. Creatinine Clearance 0 mL/min (70-130); Calcium 9.3 mg/dL (7.8-10.44); Carbon Dioxide 23 mmol/L (23-31); Chloride 101 mmol/L (98-107); Estimated GFR-MDRD 27; Globulin 2.4 g/dL (2.4-3.5); Glucose 92 mg/dL (83-110); Protein, Total 6.1 g/dL (6.0-8.3); Sodium 134 mmol/L (136-145)
[2019-01-30 17:56] LABS: Actual Bicarbonate (HCO3a) 23.9 mEq/L (22-28); Analyzer IN Cardio ER; Base Excess (BEa) -2.9 mEq/L (-2.0 to +3.0); CO2 Tension 50.7 mmHg (35.0-45.0); Calcium, Ionized 1.19 mmol/L (1.12-1.30); Carboxyhemoglobin (COHb) 0.1 gm% (0.0-3.0); Hemoglobin (Hb) 10.1 g/dL (12.0-16.0); O2 Tension (PaO2) 59.4 mmHg (> 60.0); Potassium - ABG Lab 3.66 mmol/L (3.70-5.30); Puncture Site LBA; pH, Arterial 7.29 (7.35-7.45)
[2019-01-30 17:57] LABS: ALV-art Gradient 26.955 (0-20)
[2019-01-30 18:16] LABS: CKMB 17.7 ng/mL (0-6.6)
[2019-01-30 18:34] LABS: INR-International Normal Ratio 1.1; PTT 29.2 SEC (22.9-36.1); Prothrombin Time 14.2 SEC (12.0-14.7)
--- NOTE | 2019-01-30 19:12 | CT ---
CT PULMONARY ANGIOGRAM WITH IV CONTRAST AND 3D MIP RECONSTRUCTIONS 01/30/19 PROVIDED CLINICAL HISTORY: Syncope. FINDINGS: Comparison is made with the study dated 02/17/18. Extensive atherosclerotic vascular calcification and irregular mural plaque is again noted associated with aneurysmal dilatation of the descending thoracic aorta. There is extensive multifocal atheroscl erotic plaque associated with marked luminal narrowing in the region of the diaphragmatic hiatus, wit h evidence for turbulent flow subsequent to this as well as a partially visualized 4.1 cm abdominal a ortic aneurysm. This appears no significantly changed as compared to the prior examination. There is no evidence for central or segmental pulmonary embolus. Extensive emphysematous changes are seen involving the lung apices. Scarring involving the right uppe r lobe anteriorly is again noted. Small focal area of consolidation right middle lobe. There is no p leural fluid or pneumothorax apparent. The osseous structures demonstrate no concerning lytic or junior tic lesions. Evidence for secretions or aspirated material within the trachea. Evidence for opacification of sever al subsegmental right lower lobe bronchi. IMPRESSION: 1. No evidence for central or segmental pulmonary embolus. 2. Stable appearance of the descending thoracic aorta, diaphragmatic hiatus region and partially visualized abdominal aortic aneurysm. 3. Presumed aspirated material within the trachea, right lower lobe bronchi and parenchymal opac ity involving the right middle lobe that may reflect pneumonia or aspiration pneumonitis. 4. Severe emphysema. POS: BOB
[2019-01-30] MEDS ORDERED: Acetaminophen 325 MG TAB PO PRN (19:27)
[2019-01-30] MEDS ORDERED: Acetaminophen 650 MG Suppository PR PRN (19:27)
[2019-01-30] MEDS ORDERED: Ondansetron ODT 4 MG TAB PO PRN (19:27)
[2019-01-30] MEDS ORDERED: Ondansetron PF 4 MG/2 ML Vial IVP PRN (19:27)
[2019-01-30] MEDS ORDERED: Bacteriostatic Water 30 ML VIAL FS PRN (21:02)
[2019-01-30] MEDS ORDERED: Piperacillin/Tazobactam 4.5 GM in Sodium Chloride 0.9% 100 ML IVPB SCH (21:30)
[2019-01-30] MEDS: Sodium Chloride 0.9% 1,000 ML IV SCH (21:57)
[2019-01-30] MEDS ORDERED: Vancomycin HCl 750 MG in Sodium Chloride 0.9% 250 ML 250 ML IVPB SCH (22:00)
[2019-01-30] MEDS: methylPREDNISolone Sod Succ 40 MG VIAL IVP SCH (23:08)
[2019-01-31 03:47] LABS: #Lymphocytes 0.3 thou/uL (1.20-3.40); #Monocytes 0.2 thou/uL (0.11-0.59); #Neutrophils 9.6 thou/uL (1.40-6.50); %Basophils 0.1 % (0.0-1.0); %Eosinophils 0.3 % (0.0-10.0); %Lymphocytes 2.4 % (21.0-51.0); %Monocytes 1.6 % (0.0-10.0); %Neutrophils 95.7 % (42.0-75.0); Hemoglobin 10.1 g/dL (12.0-16.0); Mean Corpuscular HGB CONC 32.1 g/dL (32.0-36.0); Mean Corpuscular Hemoglobin 30.4 pg (27.0-31.0); Mean Corpuscular Volume 94.8 fL (78.0-98.0); Mean Platelet Volume 7.3 fL (7.4-10.4); Platelet Count 160 thou/uL (130-400); RBC Distribution Width 13.1 % (11.5-14.5); Red Blood Cell (RBC) Count 3.33 mill/uL (4.20-5.40); White Blood Cell (WBC) Count 10.1 thou/uL (4.8-10.8)
[2019-01-31 03:53] LABS: Anion Gap 15 mmol/L (10-20); BUN (Urea Nitrogen) 29 mg/dL (9.8-20.1); Calc. Creatinine Clearance 22 mL/min (70-130); Carbon Dioxide 20 mmol/L (23-31); Chloride 105 mmol/L (98-107); Estimated GFR-MDRD 44; Glucose 126 mg/dL (83-110); Potassium 4.2 mmol/L (3.5-5.1); Sodium 136 mmol/L (136-145)
[2019-01-31] MEDS: Piperacillin/Tazobactam 2.25 GM in Sodium Chloride 0.9% 100 ML IVPB SCH ×4 (06:12→23:25)
[2019-01-31] MEDS: methylPREDNISolone Sod Succ 40 MG VIAL IVP SCH ×2 (06:12→23:25)
[2019-01-31 09:45] LABS: Critical Call Chem Troponin I RESULT DECREASING
[2019-01-31 10:06] LABS: CKMB 19.1 ng/mL (0-6.6)
[2019-01-31] MEDS: Sodium Chloride 0.9% 1,000 ML IV SCH (10:21)
[2019-01-31] MEDS: Levalbuterol HCl 0.63 MG/3 ML NEB NEB SCH ×2 (14:12→21:19)
[2019-01-31] MEDS: Ipratropium Bromide 2.5 ml Neb NEB SCH ×2 (14:25→21:19)
[2019-01-31] MEDS ORDERED: Ipratropium Bromide 2.5 ml Neb NEB SCH (15:00)
--- NOTE | 2019-01-31 16:49 | PDOC.HOSPP ---
- Subjective Encounter Date: 01/31/19 Encounter Time: 11:48 Subjective: 83 y/o female with recent fall just discharged from hospital but developed acute respiratory distress associated with hypoxia. CTA chest showed no PE but ttracheal debris and right middle lobe pneumonia. failed swallow eval. - Objective Vital Signs & Weight: Vital Signs (12 hours) Temp Pulse Resp Pulse Ox 01/31/19 15:09 99.2 F 01/31/19 14:12 103 H 18 100 01/31/19 10:39 98.8 F 01/31/19 07:50 100 01/31/19 07:12 99.1 F Weight Admit Weight 88 lb 6.486 oz Weight 88 lb 6.486 oz Most Recent Monitor Data Heart Rate from ECG 115 NIBP 174/105 NIBP BP-Mean 128 Respiration from ECG 22 SpO2 99 I&O: 01/30/19 01/31/19 02/01/19 06:59 06:59 06:59 Intake Total 878 Output Total 200 Balance 678 Result Diagrams: 01/31/19 03:20 01/31/19 03:20 Hospitalist ROS - Medication Medications: Active Medications Generic Name Dose Route Start Last Admin Trade Name Freq PRN Reason Stop Dose Admin Piperacillin Sod/Tazobactam 100 mls @ 200 mls/hr 01/31/19 06:00 01/31/19 12: 22 Sod 2.25 gm/ Sodium Chloride IVPB 100 mls Q6HR HENOK Administration Sodium Chloride 1,000 mls @ 75 mls/hr 01/30/19 20:45 01/31/19 10:21 Normal Saline 0.9% IV 1,000 mls .[id number] HENOK Administration Ipratropium [place] 2.5 ml 01/31/19 15:00 01/31/19 14:25 Atrovent NEB 2.5 ml [id number] HENOK Administration Levalbuterol HCl 0.63 mg 01/31/19 15:00 01/31/19 14:12 Xopenex NEB 0.63 mg [id number] HENOK Administration Sodium Chloride 10 ml 01/31/19 09:00 01/31/19 09:05 Flush - Normal Saline IVF 10 ml Q12HR HENOK Administration - Exam General Appearance: awake alert General - other findings: thin elderly female Eye: anicteric sclera ENT: normocephalic atraumatic Neck: symmetric Heart: RRR Heart - other findings: tachycardic Respiratory: tachypneic Respiratory - other findings: fair air entry with transmitted sound and crackles. Gastrointestinal: soft, non-tender, non-distended, normal bowel sounds Extremities: no cyanosis, no edema Extremities - other findings: right wrist/forearm splint noted Neurological: cranial nerve grossly intact Neurological - other findings: memory lapses noted Psychiatric: A&O x 3 Hosp A/P (1) Acute respiratory failure with hypoxia Code(s): J96.01 - ACUTE RESPIRATORY FAILURE WITH HYPOXIA Status: Acute (2) MAURO (acute kidney injury) Code(s): N17.9 - ACUTE KIDNEY FAILURE, UNSPECIFIED Status: Acute (3) Aspiration pneumonia Code(s): J69.0 - PNEUMONITIS DUE TO INHALATION OF FOOD AND VOMIT Status: Acute (4) Elevated troponin Code(s): R74.8 - ABNORMAL LEVELS OF OTHER SERUM ENZYMES Status: Acute (5) Syncope Code(s): R55 - SYNCOPE AND COLLAPSE Status: Acute (6) Oropharyngeal dysphagia Code(s): R13.12 - DYSPHAGIA, OROPHARYNGEAL PHASE Status: Acute (7) COPD exacerbation Code(s): J44.1 - CHRONIC OBSTRUCTIVE PULMONARY DISEASE W (ACUTE) EXACERBATION Status: Acute (8) Healthcare associated bacterial pneumonia Code(s): J15.9 - UNSPECIFIED BACTERIAL PNEUMONIA Status: Acute (9) Dementia Code(s): F03.90 - UNSPECIFIED DEMENTIA WITHOUT BEHAVIORAL DISTURBANCE Status: Chronic Qualifiers: Dementia type: Alzheimer's disease Alzheimer's disease onset: unspecified onset Dementia behavioral disturbance: without behavioral disturbance Qualified Code(s): G30.9 - Alzheimer's disease, unspecified; F02.80 - Dementia in other diseases classified elsewhere without behavioral disturbance (10) Hypertension Code(s): I10 - ESSENTIAL (PRIMARY) HYPERTENSION Status: Chronic Qualifiers: Hypertension type: essential hypertension Qualified Code(s): I10 - Essential (primary) hypertension (11) PVD (peripheral vascular disease) Code(s): I73.9 - PERIPHERAL VASCULAR DISEASE, UNSPECIFIED Status: Chronic (12) Protein-calorie malnutrition, moderate Code(s): E44.0 - MODERATE PROTEIN-CALORIE MALNUTRITION Status: Chronic (13) Tobacco abuse Code(s): Z72.0 - TOBACCO USE Status: Chronic - Plan Wean oxygen as tolerated. OFF BIPAP NPO Continue broad spectrum antibiotics Continue IVF Bronchodilators as needed Analgesic as needed Continue other supportive care
[2019-01-31] MEDS ORDERED: Acetaminophen 1,000 MG in Premix Bag 1 BAG IVPB SCH (17:00)
[2019-01-31] MEDS: Metoprolol Tartrate 5 MG/5 ML VIAL IVP SCH ×2 (17:20→23:23)
[2019-01-31] MEDS: Dextrose 5 % And 0.9 % NaCl 1,000 ML IV SCH (17:20)
[2019-01-31] MEDS ORDERED: Vancomycin HCl 750 MG in Sodium Chloride 0.9% 250 ML 250 ML IVPB SCH (22:00)
[2019-01-31] MEDS ORDERED: Acetaminophen 1,000 MG in Premix Bag 1 BAG IVPB PRN (23:00)
[2019-02-01 04:19] LABS: #Lymphocytes 0.6 thou/uL (1.20-3.40); #Monocytes 0.4 thou/uL (0.11-0.59); #Neutrophils 14.1 thou/uL (1.40-6.50); %Eosinophils 0.2 % (0.0-10.0); %Lymphocytes 3.8 % (21.0-51.0); %Monocytes 2.7 % (0.0-10.0); %Neutrophils 93.3 % (42.0-75.0); Hemoglobin 10.5 g/dL (12.0-16.0); Mean Corpuscular HGB CONC 32.1 g/dL (32.0-36.0); Mean Corpuscular Hemoglobin 30.8 pg (27.0-31.0); Mean Corpuscular Volume 95.7 fL (78.0-98.0); Mean Platelet Volume 7.6 fL (7.4-10.4); Platelet Count 210 thou/uL (130-400); RBC Distribution Width 13.2 % (11.5-14.5); White Blood Cell (WBC) Count 15.1 thou/uL (4.8-10.8)
[2019-02-01] MEDS: hydrALAZINE 20 MG/ML VIAL SLOW IVP PRN ×4 (04:23→20:13)
[2019-02-01 04:42] LABS: Anion Gap 12 mmol/L (10-20); BUN (Urea Nitrogen) 21 mg/dL (9.8-20.1); Calc. Creatinine Clearance 35 mL/min (70-130); Calcium 9.3 mg/dL (7.8-10.44); Carbon Dioxide 21 mmol/L (23-31); Chloride 107 mmol/L (98-107); Estimated GFR-MDRD 73; Glucose 144 mg/dL (83-110); Magnesium 1.7 mg/dL (1.6-2.6); Potassium 3.9 mmol/L (3.5-5.1); Sodium 136 mmol/L (136-145)
[2019-02-01] MEDS: Metoprolol Tartrate 5 MG/5 ML VIAL IVP SCH ×4 (05:16→23:08)
[2019-02-01] MEDS: Piperacillin/Tazobactam 2.25 GM in Sodium Chloride 0.9% 100 ML IVPB SCH ×2 (05:20→11:20)
[2019-02-01] MEDS: Dextrose 5 % And 0.9 % NaCl 1,000 ML IV SCH ×2 (05:20→17:38)
[2019-02-01] MEDS: Levalbuterol HCl 0.63 MG/3 ML NEB NEB SCH ×3 (07:50→22:12)
[2019-02-01] MEDS: Ipratropium Bromide 2.5 ml Neb NEB SCH ×3 (07:53→22:13)
[2019-02-01] MEDS: methylPREDNISolone Sod Succ 40 MG VIAL IVP SCH ×2 (09:49→20:06)
--- NOTE | 2019-02-01 11:29 | PRG ---
DATE OF SERVICE: 02/01/2019 SUBJECTIVE: Amina Emerson this morning is awake, alert, responsive, appears to be in no distress. OBJECTIVE: VITAL SIGNS: Blood pressure is elevated at 200/100, pulse 103, sats 100%, and respirations 18. CHEST: No wheezing or crackles. CARDIAC: Normal S1, S2. No gallops. ABDOMEN: No mass. LABORATORY DATA: Unremarkable. IMPRESSION: Chronic obstructive pulmonary disease, frequent falls. PLAN: Continue neb treatments. Steroids. Supportive care. We will follow. Job ID: [id number]
[2019-02-01] MEDS ORDERED: ALPRAZolam 0.25 MG TAB PO PRN (11:45)
[2019-02-01] MEDS ORDERED: Lorazepam 0.5 MG TAB PO PRN (12:01)
[2019-02-01] MEDS ORDERED: Enoxaparin Sodium 40 MG/0.4 ML SYRINGE SC SCH (12:15)
--- NOTE | 2019-02-01 12:19 | CON ---
DATE OF CONSULTATION: HISTORY OF PRESENT ILLNESS: Amina Emerson is an 83-year-old female, who is just most recently discharged from the hospital. She comes in back again to the hospital with apparently fall, shortness of breath. It is difficult to get much history from the patient at this stage, but the discharge summary on 01/30 stated fall with right distal radius fracture, right inferior and superior pubic rami fracture, history of CVA and COPD dementia. In fact, she went yesterday and came back again to the hospital. She has seen Dr. Gamboa in his office. At this stage, she is not able to give any additional information. difficulty breathing. She also is saying that she is smoking several cigarettes a day. Extensive medical history as outlined. HOME MEDICATIONS: 1. Tramadol. 2. Hydralazine. 3. Spiriva. 4. Zocor. 5. Zoloft 50. 6. Protonix 40. 7. Nitroglycerin. 8. Vitamin. 9. Cozaar 25. 10. Gabapentin 100. She is a DNR. ALLERGIES: SYMBICORT, ALBUTEROL. PAST SURGICAL HISTORY: Previous surgeries included long list, which include uterine cancer, abdominal aortic aneurysm surveillance, tonsillectomy, adenoids, shoulder, cataracts. REVIEW OF SYSTEMS: Unremarkable. PHYSICAL EXAMINATION: GENERAL: On examination, elderly female, who was on BiPAP last night. This morning, she appears to be in no distress. VITAL SIGNS: Saturations are 96%, temperature 98, and blood pressure , and respirations are 18. CHEST: No wheezing or crackles. CARDIAC: Normal S1 and S2. No gallops. ABDOMEN: No masses. IMPRESSION: 1. Chronic obstructive pulmonary disease. 2. Advanced age. 3. Dementia. 4. Do not resuscitate. 5. Azotemia. 6. Elevated troponin. PLAN: At this stage, continue supportive care. I am not so sure what breathing medicine we can give her since she is allergic to albuterol and budesonide. She was started on steroids, which I will probably taper tomorrow. She is on broad-spectrum antibiotics, I am not so sure I see a infection. Recent discharge summary shows she is on nonsurgical treatment for her distal radius fracture and suprapubic fracture. We will continue supportive care and notify Dr. Gamboa. Consultation note, 70 minutes, 50% of direct patient care. Job ID: [id number]
[2019-02-01] MEDS: Lorazepam 2 MG/ML VIAL SLOW IVP PRN ×2 (14:19→21:05)
--- NOTE | 2019-02-01 16:48 | PDOC.HOSPP ---
- Subjective Encounter Date: 02/01/19 Encounter Time: 12:44 Subjective: 83 y/o female with recent fall associated with pelvic andleft wrist fracture just discharged from hospital but developed syncope and acute respiratory distress associated with hypoxia on reaching her assisted living resident. CTA chest showed no PE but tracheal debris and right middle lobe pneumonia. She also was noted to have troponin elevation. Patient improved with BIPAP and oxygen supplementation and was weaned off BIPAP and oxygen. However she developed SOB and was restarted on BIPAP last night. Also failed swallow evaluation and currently NPO. - Objective Vital Signs & Weight: Vital Signs (12 hours) Temp Pulse Resp BP Pulse Ox 02/01/19 16:00 98.6 F 02/01/19 14:59 118 H 02/01/19 14:58 120 H 28 H 100 02/01/19 14:21 99 200/104 H 02/01/19 11:20 99 200/104 H 02/01/19 10:36 98.4 F 02/01/19 07:50 99 22 H 100 02/01/19 07:14 98.4 F Weight Admit Weight 88 lb 6.486 oz Weight 88 lb 6.486 oz Most Recent Monitor Data Heart Rate from ECG 122 NIBP 202/97 NIBP BP-Mean 132 Respiration from ECG 26 SpO2 99 I&O: 01/31/19 02/01/19 02/02/19 06:59 06:59 06:59 Intake Total 878 1890 Output Total 200 650 Balance 678 1240 Result Diagrams: 02/01/19 03:40 02/01/19 03:39 Hospitalist ROS - Medication Medications: Active Medications Generic Name Dose Route Start Last Admin Trade Name Freq PRN Reason Stop Dose Admin Hydralazine HCl 10 mg 01/31/19 16:46 02/01/19 14:21 Apresoline SLOW IVP 10 mg Q4H PRN Administration SBP > 170 or DBP > 100 Acetaminophen 1,000 mg/ Device 100 mls @ 400 mls/hr 01/31/19 23:00 02/01/19 11:21 IVPB 02/01/19 17:01 100 mls Q6H PRN Administration Fever/Mild Pain Ipratropium [place] 2.5 ml 01/31/19 15:00 02/01/19 14:59 Atrovent NEB 2.5 ml [id number] HENOK Administration Levalbuterol HCl 0.63 mg 01/31/19 15:00 02/01/19 14:58 Xopenex NEB 0.63 mg [id number] HENOK Administration Lorazepam 0.5 mg 02/01/19 12:01 02/01/19 14:19 Ativan SLOW IVP 0.5 mg Q6H PRN Administration Anxiety/Agitation Methylprednisolone Sodium Succinate 40 mg 01/31/19 21:00 02/01/19 09:49 Solu-Medrol IVP 40 mg BID HENOK Administration Metoprolol Tartrate 5 mg 01/31/19 17:00 02/01/19 09:50 Lopressor IVP 5 mg 0500,1100,1700,2300 HENOK Administration Sodium Chloride 10 ml 01/31/19 09:00 02/01/19 09:50 Flush - Normal Saline IVF 10 ml Q12HR HENOK Administration - Exam General Appearance: awake alert General - other findings: mild to moderate distress. Afebrile ENT: normocephalic atraumatic ENT - other findings: BIPAP mask in place Heart: RRR Heart - other findings: tachycardic Respiratory: no ronchi, tachypneic Respiratory - other findings: BIPAP transmitted sound and decreased air movement noted Gastrointestinal: soft, non-tender, non-distended, normal bowel sounds Extremities: no edema Neurological: cranial nerve grossly intact Hosp A/P (1) Acute respiratory failure with hypoxia Code(s): J96.01 - ACUTE RESPIRATORY FAILURE WITH HYPOXIA Status: Acute (2) MAURO (acute kidney injury) Code(s): N17.9 - ACUTE KIDNEY FAILURE, UNSPECIFIED Status: Acute (3) Aspiration pneumonia Code(s): J69.0 - PNEUMONITIS DUE TO INHALATION OF FOOD AND VOMIT Status: Acute (4) Elevated troponin Code(s): R74.8 - ABNORMAL LEVELS OF OTHER SERUM ENZYMES Status: Acute (5) Syncope Code(s): R55 - SYNCOPE AND COLLAPSE Status: Acute (6) Oropharyngeal dysphagia Code(s): R13.12 - DYSPHAGIA, OROPHARYNGEAL PHASE Status: Acute (7) COPD exacerbation Code(s): J44.1 - CHRONIC OBSTRUCTIVE PULMONARY DISEASE W (ACUTE) EXACERBATION Status: Acute (8) Healthcare associated bacterial pneumonia Code(s): J15.9 - UNSPECIFIED BACTERIAL PNEUMONIA Status: Acute (9) Dementia Code(s): F03.90 - UNSPECIFIED DEMENTIA WITHOUT BEHAVIORAL DISTURBANCE Status: Chronic Qualifiers: Dementia type: Alzheimer's disease Alzheimer's disease onset: unspecified onset Dementia behavioral disturbance: without behavioral disturbance Qualified Code(s): G30.9 - Alzheimer's disease, unspecified; F02.80 - Dementia in other diseases classified elsewhere without behavioral disturbance (10) Hypertension Code(s): I10 - ESSENTIAL (PRIMARY) HYPERTENSION Status: Chronic Qualifiers: Hypertension type: essential hypertension Qualified Code(s): I10 - Essential (primary) hypertension (11) PVD (peripheral vascular disease) Code(s): I73.9 - PERIPHERAL VASCULAR DISEASE, UNSPECIFIED Status: Chronic (12) Protein-calorie malnutrition, moderate Code(s): E44.0 - MODERATE PROTEIN-CALORIE MALNUTRITION Status: Chronic (13) Tobacco abuse Code(s): Z72.0 - TOBACCO USE Status: Chronic - Plan Start clonidine and nitro patch for accelerated HTN as ;patient cannot take by mouth yet. Continue metoprolol 5 mg q6h Continue BIPAP, Bronchodilators and steroid. DC Vanc and Continue Zosyn. Wean off BIPAP as tolerated Continue IVF as patient is NPO Analgesic as needed Continue other supportive care Consult cardiology. Get Echo and carotid dopplers
--- NOTE | 2019-02-01 17:28 | CON ---
DATE OF CONSULTATION: 02/01/2019 INDICATION FOR CONSULTATION: An 83-year-old female with what appears to be end-stage COPD, history of thoracoabdominal aneurysm, and elevated cardiac enzymes. We were asked to see her due to the elevated cardiac enzymes while she has history of hypertension. HISTORY OF PRESENT ILLNESS: This is a very unfortunate 83-year-old female, was admitted to the hospital due to increasing shortness of breath. She recently was in the rehab center after having a fractured pelvis and distal radius on the right side, and she was rehabilitated, and then she had increasing shortness of breath and was admitted to the hospital. Her troponin I had been indeterminate, but slightly elevated with a troponin I of 0.71 and then decreased down to 0.49 with an MB which increased from 17 up to 19. She denies any significant chest pain, but she does have significant shortness of breath. She has been on a BiPAP mask since being in the hospital here on and off and when it is taken off, she is not able to breathe adequately and becomes more short of breath. Her BNP is only 145. Her EKG does not show any acute changes that would indicate myocardial infarction or ischemia. She still remains in a sinus rhythm. She does have some peaking of the T-waves, but most likely her elevated cardiac enzymes are due to demand ischemia associated with her COPD, her shortness of breath and some mild sinus tachycardia. Otherwise, she remains pretty stable at this time except for the dyspnea. PAST MEDICAL HISTORY: Significant for severe COPD. She has had a history of thoracoabdominal aneurysm, which has been deemed inoperable. She has a history of uterine cancer. She had CVAs in the past. She has Alzheimer's. She has restless legs syndrome. She has history of peripheral vascular disease, hypercholesterolemia. She has undergone hysterectomy as well as skin cancer removal. She has had a tonsillectomy. She has had retinal surgery. She has a history of depression. SOCIAL HISTORY: She continues to smoke unfortunately. She has smoked for many, many years. She also drinks alcohol usually on a daily basis. She lives at the [facility] and has been undergoing rehab after she fell and broke her pelvis and distal radius on the right side. FAMILY HISTORY: Noncontributory at this time. REVIEW OF SYSTEMS: A 12-point review of systems is not obtainable at this time due to the patient being dyspneic and being on the BiPAP mask. PHYSICAL EXAMINATION: GENERAL: Reveals a very fragile, ill-appearing female. VITAL SIGNS: Her blood pressure at this time is elevated, it was up to 180s systolically, it is back down to 143/95; her heart rate is in the 90s to 120s, but depending on how short of breath she is to whether or not she is wearing a mask; respiratory rate is 20 to 30; O2 saturations are essentially 100%; and blood pressure has been as high as 200/104. HEENT: Shows the head to be normocephalic and atraumatic. Did not see any significant abnormalities. Carotid pulses are difficult to auscultate due to the upper airway noise associated with breathing. CHEST: Decreased breath sounds throughout. She barely has any movement of air. CARDIOVASCULAR: Heart sounds are distant. I do not hear any gross murmurs, heaves, thrills, bruits, or rubs. ABDOMEN: Soft. I did not palpate any masses. I cannot palpate any large abdominal aneurysm at this time. EXTREMITIES: Show no clubbing or cyanosis. Pedal pulses are difficult to palpate. She does have ecchymosis due to previous bruising. NEUROLOGIC: The patient is somewhat confused, but appears overall severe deconditioning and may be somewhat confused due to her severe pulmonary problems. IMPRESSION: 1. Abnormal cardiac enzymes, which would be deemed a type 2 myocardial infarction, which is demand ischemia associated with her work of breathing and also some sinus tachycardia. I do not see indication that she has any acute ST-segment elevation at this time and she is not a candidate to go to the laboratory technician due to her morbid illness and other comorbid factors. She is actually a DNR patient. If the blood pressure tolerates, she could always try nitroglycerin paste if there is some concern that she may be getting ischemic. 2. Severe end-stage chronic obstructive pulmonary disease, for which she has been followed by the wheat cleaner. 3. Advanced age and deconditioning. 4. Mild anemia. Hemoglobin was 10.5. 5. Anemia. 6. Continued tobacco abuse. 7. Deconditioning overall. 8. DNR status. We are more than happy to continue to follow the patient with you. However, the only option would be to apply some nitroglycerin paste if we think that the patient may be ischemic, but she is not a candidate otherwise for any significant intervention and most likely this indicates just demand ischemia associated with a slight increase in the cardiac enzymes. Further care of the patient will be by Dr. Pacheco when he visits with the patient tomorrow. Job ID: [id number]
[2019-02-01] MEDS: Piperacillin/Tazobactam 3.375 GM in Sodium Chloride 0.9% 100 ML IVPB SCH ×2 (17:38→23:07)
[2019-02-01 20:28] VITALS: BP 209/129
[2019-02-01] MEDS ORDERED: Vancomycin HCl 500 MG in Sodium Chloride 0.9% 100 ML IVPB SCH (22:00)
[2019-02-02] MEDS: Metoprolol Tartrate 5 MG/5 ML VIAL IVP SCH ×3 (05:00→17:33)
[2019-02-02] MEDS: Piperacillin/Tazobactam 3.375 GM in Sodium Chloride 0.9% 100 ML IVPB SCH ×3 (05:23→17:35)
[2019-02-02 05:57] LABS: #Lymphocytes 0.9 thou/uL (1.20-3.40); #Monocytes 1.4 thou/uL (0.11-0.59); #Neutrophils 17.3 thou/uL (1.40-6.50); %Basophils 0.1 % (0.0-1.0); %Eosinophils 0.1 % (0.0-10.0); %Lymphocytes 4.3 % (21.0-51.0); %Monocytes 7.1 % (0.0-10.0); %Neutrophils 88.4 % (42.0-75.0); Mean Corpuscular HGB CONC 32.6 g/dL (32.0-36.0); Mean Corpuscular Volume 95.1 fL (78.0-98.0); Mean Platelet Volume 7.1 fL (7.4-10.4); Platelet Count 284 thou/uL (130-400); RBC Distribution Width 13.2 % (11.5-14.5); Red Blood Cell (RBC) Count 3.55 mill/uL (4.20-5.40); White Blood Cell (WBC) Count 19.6 thou/uL (4.8-10.8)
[2019-02-02 06:27] LABS: Albumin 3.7 g/dL (3.4-4.8); Anion Gap 12 mmol/L (10-20); BUN (Urea Nitrogen) 17 mg/dL (9.8-20.1); Calc. Creatinine Clearance 38 mL/min (70-130); Calcium 9.5 mg/dL (7.8-10.44); Carbon Dioxide 23 mmol/L (23-31); Chloride 110 mmol/L (98-107); Estimated GFR-MDRD 82; Glucose 157 mg/dL (83-110); Magnesium 1.7 mg/dL (1.6-2.6); Potassium 3.6 mmol/L (3.5-5.1); Sodium 141 mmol/L (136-145)
[2019-02-02 06:34] LABS: Phosphorus 1.5 mg/dL (2.3-4.7)
--- NOTE | 2019-02-02 07:34 | HP ---
PRIMARY CARE DOCTOR: Dr. Puma Lewis CODE STATUS: DNR, DNI, verified with nurse, family. Patient has out of hospital DNR records. CHIEF COMPLAINT: Shortness of breath. HISTORY OF PRESENT ILLNESS: This is an 83-year-old female patient with past medical history of recent fall with right distal radial fracture, status post immobilization; hypertension; was in a rehab facility; Alzheimer's; and COPD, came to the hospital after having shortness of breath that was severe and gradually worsening associated with change in mental status. Patient got back to her assisted living and even she got a syncopal episode. Patient has saturation in the 70s. After oxygen saturation restored to the 90s, patient was placed on BiPAP and had been improving the respiratory status, however, still has significant change in mental status. Patient was placed in IMCU. CAT scan showed the patient has pneumonia. Patient was placed on broad-spectrum antibiotics for healthcare-associated pneumonia. Symptoms are severe. REVIEW OF SYSTEMS: Unable to obtain as patient has dementia and is confused. PAST MEDICAL HISTORY: As mentioned in the HPI. PAST SURGICAL HISTORY: Patient has tonsillectomy, adenoids, detached retina eye surgery in the left, hysterectomy, uterus malignancy, head surgery, remote skin cancer, and cataracts to both eyes. PSYCHIATRIC HISTORY: Depression. SOCIAL HISTORY: Patient drinks everyday, less than 5 drinks per day. No drug use. Smokes cigarettes. Lives in a long-term care facility. FAMILY HISTORY: Unable to verify as patient is confused and dementia. KNOWN ALLERGIES: Albuterol, budesonide, formoterol, and Symbicort. REPORTED MEDICATIONS: 1. Spiriva. 2. Losartan. 3. Tramadol. 4. Pantoprazole. 5. Namenda. 6. Maalox. 7. Nitroglycerin. 8. Folic acid. 9. Loperamide. 10. Milk of magnesia. 11. Simvastatin. 12. Zoloft. PHYSICAL EXAMINATION: VITAL SIGNS: On presentation, blood pressure 100/47; saturation 97, on BiPAP; heart rate 93; respiratory rate was 20; and oxygen saturation was 100 on nonrebreather mask and has remained same on BiPAP. GENERAL APPEARANCE: The patient has dementia. Patient looks clinically ill with immobilization of the right upper arm, confused, on BiPAP. HEENT: Eyes; normal conjunctivae. Dry oral mucosa. Anicteric. NECK: No JVD. RESPIRATORY: Bilateral air entry. No rales. No wheezes. Symmetric expansion. Patient has BiPAP. CARDIOVASCULAR: Normal rate, regular rhythm. No murmurs. No gallop. No edema. ABDOMEN: Soft. Normoactive bowel sounds. MUSCULOSKELETAL: Baseline range of motion and strength. Patient has right upper extremity incision due to recent radial fracture. SKIN: Warm, intact. No pallor. No rash. No redness. Capillary refill seems to be intact. NEUROLOGIC: No evidence of any new focal weakness. Cranial nerves seem to be intact. PSYCH: Patient is confused, unable to fully explore. DATA REVIEWED: EKG was reviewed. The patient has normal sinus rhythm with sinus arrhythmia, right bundle-branch block. Normal EKG. Brain CT was done. No evidence of intracranial hemorrhage or mass effect. Chest, thorax CTA was done. The patient has no evidence for central or segmental pulmonary embolism, stable appearance of the ascending aorta, thoracic aorta diaphragmatic hiatus region and partially visualized abdominal aortic aneurysm, presumed aspirate material within the trachea. The right lower lobe bronchi parenchymal opacity involving the right middle lobe that may reflect pneumonia or aspiration pneumonitis and severe emphysema. LABORATORY DATA: Reviewed. Patient has white count 12.1, hemoglobin 10.6, MCV 96.2, and platelet count 167. PT 14.2, INR 1.1, and PTT 29.2. Blood gas specimen; pH 7.29, pCO2 of 50.7, and PO2 of 59.4. Chemistry, sodium 134; potassium 4.0; chloride 101; carbon dioxide 23; anion gap 14; BUN 31; and creatinine 1.8, the previous one 0.8; GFR 27; glucose 92; calcium 9.3; total bilirubin 0.5. LFTs were negative. Troponin 0.71, previous one on admission was normal; beta-natriuretic peptide 145. Serum total protein 6.1, albumin 3.7, globulin 2.4, albumin-globulin ratio is 1.5. ASSESSMENT AND PLAN: The patient will be placed in the hospital with following medical problems. 1. Severe encephalopathy, likely secondary to dehydration and pneumonia. We will treat the underlying condition. We will need support as inpatient. 2. Aspiration pneumonia seen on the CAT scan. Patient will be started on broad-spectrum antibiotics and also to cover the healthcare-associated pneumonia. We will follow cultures. We will adjust treatment as needed. 3. Sepsis with organ dysfunction. Patient has respiratory failure. Patient has tachycardia and leukocytosis. We will treat as above. 4. Acute respiratory acidosis. Patient has pH 7.29 with pCO2 retention of 50 on the ABG and also has hypoxia 59.4. Patient is on BiPAP, has improved since admission. Continue to monitor and treat accordingly. 5. Hyponatremia with sodium of 134. This is mild, no need for any acute intervention at this point. We will monitor and we will treat accordingly. 6. Acute kidney injury. Patient has creatinine 1.8, on previous admission it was 0.7. We will hydrate. Might be secondary to dehydration and sepsis. We will monitor treatment depending on kidney function recovery. 7. [id number] myocardial infarction with troponin 0.7. At this point, we will trend troponin. Could be a [id number] myocardial infarction type 2 secondary to acute hypoxic respiratory failure. We will treat depending on the troponin level. 8. History of Alzheimer's disease. Patient will need support as inpatient. 9. Controlled hypertension. Reconcile home medications, adjust treatment as needed. We will not treat aggressively as patient is dehydrated with sepsis. 10. History of chronic obstructive pulmonary disease. Reconcile home medications and adjust treatment as needed. Seems to be an exacerbation likely by pneumonia. We will treat the patient with DuoNebs, antibiotics, and steroids. 11. High cholesterol. Low-cholesterol diet is advised. 12. Deep venous thrombosis prophylaxis. Job ID: [id number]
--- NOTE | 2019-02-02 07:52 | ULT ---
Carotid duplex sonogram HISTORY: Syncope. Vascular disease. FINDINGS: Right: Scattered plaque. Color and spectral Doppler evaluation, peak systolic velocity of 214 cm/s, a nd IC to CC ratio of 2.0 suggest stenosis of the mid right cervical ICA and approximately 70%. Antegrade flow within the vertebral artery. Left: Prominent plaque. Color and spectral Doppler evaluation, peak systolic velocity of 367 cm/s, an d IC to CC ratio of 2.6 suggest high-grade stenosis, greater than 80%, within the proximal left cervical ICA. Antegrade flow within the vertebral artery. IMPRESSION: Abnormal exam. Sonographic findings of significant stenosis within each internal carotid artery, left worse than right. Please consider CT arteriography or conventional arteriography for further evaluation.
[2019-02-02] MEDS: Levalbuterol HCl 0.63 MG/3 ML NEB NEB SCH ×3 (08:01→21:56)
[2019-02-02] MEDS: Ipratropium Bromide 2.5 ml Neb NEB SCH ×3 (08:04→21:57)
[2019-02-02] MEDS ORDERED: Potassium Phosphate 15 MMOL in Sodium Chloride 0.9% 250 ML 250 ML IVPB SCH (08:45)
--- NOTE | 2019-02-02 08:50 | PDOC.CPN ---
- Subjective Date: 02/02/19 Time: 08:49 Interval history: Review of noted from the weekend Pt fairly non-verbal NRB currently No symptoms - Objective Allergies/Adverse Reactions: Allergies Allergy/AdvReac Type Severity Reaction Status Date / Time albuterol Allergy Verified 04/17/17 19:39 budesonide Allergy Verified 09/25/18 05:05 formoterol [From Symbicort] Allergy Verified 09/25/18 05:05 Visit Medications: Current Medications Acetaminophen (Tylenol) 650 mg PO Q4H PRN PRN Reason: Headache/Fever/Mild Pain (1-3) Acetaminophen (Tylenol) 650 mg IA Q4H PRN PRN Reason: Headache/Fever/Mild Pain (1-3) Alprazolam (Xanax) 0.25 mg PO TIDPRN PRN PRN Reason: Anxiety Clonidine (Dwkdqeei-Xeb-4) 0.2 mg TD Q7DAYS HENOK Enoxaparin Sodium (Lovenox) 40 mg SC 0900 HENOK Hydralazine HCl (Apresoline) 10 mg SLOW IVP Q4H PRN PRN Reason: SBP > 170 or DBP > 100 Last Admin: 02/01/19 20:13 Dose: 10 mg Piperacillin Sod/Tazobactam (Sod 3.375 gm/ Sodium Chloride) 100 mls @ 200 mls/ hr IVPB Q6HR HENOK Last Admin: 02/02/19 05:23 Dose: 100 mls Dextrose/Sodium Chloride (D5 0.9% Ns) 1,000 mls @ 60 mls/hr IV .[id number] [facility] Last Admin: 02/01/19 17:38 Dose: 1,000 mls Potassium Phosphate 15 mmol/ (Sodium Chloride) 255 mls @ 62.5 mls/hr IVPB ONE HENOK Ipratropium [place] (Atrovent) 2.5 ml NEB [id number] HENOK Last Admin: 02/02/19 08:04 Dose: 2.5 ml Levalbuterol HCl (Xopenex) 0.63 mg NEB [id number] HENOK Last Admin: 02/02/19 08:01 Dose: 0.63 mg Lorazepam (Ativan) 0.5 mg SLOW IVP Q6H PRN PRN Reason: Anxiety/Agitation Last Admin: 02/01/19 21:05 Dose: 0.5 mg Lorazepam (Ativan) 0.5 mg PO Q6H PRN PRN Reason: Anxiety Methylprednisolone Sodium Succinate (Solu-Medrol) 40 mg IVP BID [facility] Last Admin: 02/01/19 20:06 Dose: 40 mg Metoprolol Tartrate (Lopressor) 5 mg IVP 0500,1100,1700,2300 [facility] Last Admin: 02/02/19 05:00 Dose: 5 mg Miscellaneous Medication (Pharmacy To Dose) 1 each IVPB PRN PRN PRN Reason: Pharmacy to dose Nitroglycerin (Nitro-Dur 0.1mg/Hr Patch) 1 patch TD DAILY [facility] Ondansetron HCl (Zofran Odt) 4 mg PO Q6H PRN PRN Reason: Nausea/Vomiting Ondansetron HCl (Zofran) 4 mg IVP Q6H PRN PRN Reason: Nausea/Vomiting Sodium Chloride (Flush - Normal Saline) 10 ml IVF Q12HR [facility] Last Admin: 02/01/19 20:06 Dose: 10 ml Sodium Chloride (Flush - Normal Saline) 10 ml IVF PRN PRN PRN Reason: Saline Flush Sterile Water (Bacteriostatic Water) 1 ml FS PRN PRN PRN Reason: RECONSTITUTION Vital Signs & Weight: Vital Signs Temp Pulse Resp Pulse Ox 02/02/19 08:01 126 H 34 H 99 02/02/19 07:22 98.3 F 02/02/19 04:00 98.8 F 02/02/19 00:00 97.9 F 02/01/19 22:13 123 H 28 H 100 02/01/19 22:12 123 H 28 H 100 Admit Weight 88 lb 6.486 oz Weight 91 lb 11.397 oz - Physical Exam General: cachectic Neck: supple neck Cardiac: regular rate and rhythm, no murmur Lungs: no rhonchi, decreased breath sounds Abdomen: unremarkable Skin: clear - Labs Result Diagrams: 02/02/19 05:44 02/02/19 05:44 Troponin/CKMB CK-MB (CK-2) 19.1 ng/mL (0-6.6) H* 01/31/19 03:20 Troponin I 0.490 ng/mL (< 0.028) H* 01/31/19 03:20 - Problem (1) Acute respiratory failure with hypoxia Code(s): J96.01 - ACUTE RESPIRATORY FAILURE WITH HYPOXIA Assessment and Plan: Slowly improving Chronic COPD noted (2) Elevated troponin Code(s): R74.8 - ABNORMAL LEVELS OF OTHER SERUM ENZYMES Assessment and Plan: Type II [place] (see previous note) Treat medically (3) COPD exacerbation Code(s): J44.1 - CHRONIC OBSTRUCTIVE PULMONARY DISEASE W (ACUTE) EXACERBATION Assessment and Plan: Followed by pulmonary (4) Dementia Code(s): F03.90 - UNSPECIFIED DEMENTIA WITHOUT BEHAVIORAL DISTURBANCE Qualifiers: Dementia type: Alzheimer's disease Alzheimer's disease onset: unspecified onset Dementia behavioral disturbance: without behavioral disturbance Qualified Code(s): G30.9 - Alzheimer's disease, unspecified; F02.80 - Dementia in other diseases classified elsewhere without behavioral disturbance Assessment and Plan: Chronic (5) Tobacco abuse Code(s): Z72.0 - TOBACCO USE Assessment and Plan: Continued use - Assessment/Plan Assessment/Plan: Overall prognosis is poor No further CV recs
[2019-02-02] MEDS ORDERED: cloNIDine 0.2mg/24 Hour PATCH TD SCH (09:00)
[2019-02-02] MEDS: Nitroglycerin 0.1mg/Hour PATCH TD SCH (09:47)
[2019-02-02] MEDS: methylPREDNISolone Sod Succ 40 MG VIAL IVP SCH ×2 (09:48→20:46)
[2019-02-02] MEDS: Enoxaparin Sodium 40 MG/0.4 ML SYRINGE SC SCH (09:48)
--- NOTE | 2019-02-02 09:56 | PRG ---
DATE OF SERVICE: 02/02/2019 SUBJECTIVE: The patient is in bad shape. She is noncommunicative. OBJECTIVE: VITAL SIGNS: Temperature 98.3, pulse 106, blood pressure 158/120, O2 saturation 99%. GENERAL: She is encephalopathic. HEENT: Otherwise, unremarkable. NECK: No JVD. LUNGS: Poor air movement. CARDIAC: S1, S2. Regular. ABDOMEN: Soft. EXTREMITIES: Severe muscle wasting. LABORATORY DATA: White blood cell count 19.6, hematocrit 33.7, and platelet count 284. Sodium 141, potassium 3.6, chloride 100, CO2 of 23, BUN 17, creatinine 0.6, glucose 157. ASSESSMENT: 1. End-stage chronic obstructive pulmonary disease. 2. Acute on chronic respiratory failure, requiring intermittent BiPAP. 3. Encephalopathy/Alzheimer disease. PLAN: In my opinion, there is really no hope for functional recovery. I would favor hospice in this patient. She is currently on steroids, antibiotics, and nebulization treatments. Job ID: [id number]
--- NOTE | 2019-02-02 13:31 | PDOC.HOSPP ---
- Subjective Subjective: Patient end-stage COPD with acute COPD exacerbation. Patient seen and examined. Discussed case with speech therapist who evaluated the patient yesterday and states that she was more interactive, awake, and talking yesterday. Patient now encephalopathic, withdrawals from noxious stimuli only. Follows no commands. Palliative care consultation requested. - Objective Vital Signs & Weight: Vital Signs (12 hours) Temp Pulse Resp Pulse Ox 02/02/19 12:00 100 02/02/19 11:13 98.4 F 02/02/19 08:01 126 H 34 H 99 02/02/19 07:22 98.3 F 02/02/19 04:00 98.8 F Weight Admit Weight 88 lb 6.486 oz Weight 91 lb 11.397 oz Most Recent Monitor Data Heart Rate from ECG 115 NIBP 196/145 NIBP BP-Mean 162 Respiration from ECG 30 SpO2 99 I&O: 02/01/19 02/02/19 02/03/19 06:59 06:59 06:59 Intake Total 1890 1507 Output Total 650 475 Balance 1240 1032 Result Diagrams: 02/02/19 05:44 02/02/19 05:44 Hospitalist ROS - Review of Systems All other systems reviewed; all pertinent +/- noted in HPI/Subj - Medication Medications: Active Medications Generic Name Dose Route Start Last Admin Trade Name Freq PRN Reason Stop Dose Admin Clonidine 0.2 mg 02/02/19 09:00 02/02/19 09:47 Sdooubbd-Jha-5 TD 0.2 mg Q7DAYS HENOK Administration Enoxaparin Sodium 40 mg 02/02/19 09:00 02/02/19 09:48 Lovenox SC 40 mg 0900 HENOK Administration Hydralazine HCl 10 mg 01/31/19 16:46 02/01/19 20:13 Apresoline SLOW IVP 10 mg Q4H PRN Administration SBP > 170 or DBP > 100 Piperacillin Sod/Tazobactam 100 mls @ 200 mls/hr 02/01/19 18:00 02/02/19 12: 54 Sod 3.375 gm/ Sodium Chloride IVPB 100 mls Q6HR HENOK Administration Dextrose/Sodium Chloride 1,000 mls @ 60 mls/hr 02/01/19 16:38 02/01/19 17:38 D5 0.9% Ns IV 1,000 mls .[id number] HENOK Administration Ipratropium [place] 2.5 ml 01/31/19 15:00 02/02/19 08:04 Atrovent NEB 2.5 ml [id number] HENOK Administration Levalbuterol HCl 0.63 mg 01/31/19 15:00 02/02/19 08:01 Xopenex NEB 0.63 mg [id number] HENOK Administration Lorazepam 0.5 mg 02/01/19 12:01 02/01/19 21:05 Ativan SLOW IVP 0.5 mg Q6H PRN Administration Anxiety/Agitation Methylprednisolone Sodium Succinate 40 mg 01/31/19 21:00 02/02/19 09:48 Solu-Medrol IVP 40 mg BID HENOK Administration Metoprolol Tartrate 5 mg 01/31/19 17:00 02/02/19 11:39 Lopressor IVP 5 mg 0500,1100,1700,2300 HENOK Administration Nitroglycerin 1 patch 02/02/19 09:00 02/02/19 09:47 Nitro-Dur 0.1mg/Hr Patch TD 1 patch DAILY HENOK Administration Sodium Chloride 10 ml 01/31/19 09:00 02/02/19 09:47 Flush - Normal Saline IVF 10 ml Q12HR HENOK Administration Sodium Chloride 10 ml 01/30/19 21:55 02/02/19 11:40 Flush - Normal Saline IVF 10 ml PRN PRN Administration Saline Flush - Exam General Appearance: ill appearing Eye: PERRL, anicteric sclera ENT: no oropharyngeal lesions, dry oral mucosa Neck: supple, symmetric, no lymphadenopathy Heart: no murmur, no gallops, no rubs Respiratory: rhonchi, tachypneic, wheezes (poor air movement.) Gastrointestinal: soft, non-tender, non-distended, no palpable masses, no guarding, no rigidity Extremities: no edema Skin: no rashes Neurological: cranial nerve grossly intact, no weakness Musculoskeletal: generalized weakness Psychiatric: not oriented, somnolent Hosp A/P (1) COPD exacerbation Code(s): J44.1 - CHRONIC OBSTRUCTIVE PULMONARY DISEASE W (ACUTE) EXACERBATION Status: Acute (2) CAP (community acquired pneumonia) Code(s): J18.9 - PNEUMONIA, UNSPECIFIED ORGANISM Status: Acute (3) Acute respiratory failure with hypoxia Code(s): J96.01 - ACUTE RESPIRATORY FAILURE WITH HYPOXIA Status: Acute (4) Type 2 MT (myocardial infarction) Code(s): I21.A1 - MYOCARDIAL INFARCTION TYPE 2 Status: Acute (5) MAURO (acute kidney injury) Code(s): N17.9 - ACUTE KIDNEY FAILURE, UNSPECIFIED Status: Resolved (6) COPD (chronic obstructive pulmonary disease) Status: Chronic Qualifiers: COPD type: unspecified COPD Qualified Code(s): J44.9 - Chronic obstructive pulmonary disease, unspecified (7) Dementia Code(s): F03.90 - UNSPECIFIED DEMENTIA WITHOUT BEHAVIORAL DISTURBANCE Status: Chronic Qualifiers: Dementia type: Alzheimer's disease Alzheimer's disease onset: unspecified onset Dementia behavioral disturbance: without behavioral disturbance Qualified Code(s): G30.9 - Alzheimer's disease, unspecified; F02.80 - Dementia in other diseases classified elsewhere without behavioral disturbance (8) Dyslipidemia Code(s): E78.5 - HYPERLIPIDEMIA, UNSPECIFIED Status: Chronic (9) History of stroke Code(s): Z86.73 - PRSNL HX OF TIA (TIA), AND CEREB INFRC W/O RESID DEFICITS Status: Chronic (10) Hypertension Code(s): I10 - ESSENTIAL (PRIMARY) HYPERTENSION Status: Chronic Qualifiers: Hypertension type: essential hypertension Qualified Code(s): I10 - Essential (primary) hypertension (11) Tobacco abuse Code(s): Z72.0 - TOBACCO USE Status: Chronic - Plan Plan: IMCU pulmonology consultation, recommendations appreciated cardiology consultation, recommendations appreciate palliative care consultation, recommendations appreciated continue IV steroids continue antibiotics continue inhaled nebulizer therapy despite maximal medical therapy the short-term prognosis for this patient is poor the patient has a do not sustained and do not intubate in place elevated troponins type 2 myocardial infarction
--- NOTE | 2019-02-02 13:49 | PDOC.EVN ---
Event Note - Event Note Event Note: Discussed case with , Mr Emerson. Updated him with the critical nature of her condition. Time was given to ask questions, all questions answered in detail. He states that he "knows she is going to soon, and he just wants her to be comfortable". Discussed code status and he states they will honor DNR and DNI. Patients interested in hospice.
[2019-02-02] MEDS: Dextrose 5 % And 0.9 % NaCl 1,000 ML IV SCH (17:33)
[2019-02-03] MEDS: Piperacillin/Tazobactam 3.375 GM in Sodium Chloride 0.9% 100 ML IVPB SCH ×5 (00:17→23:46)
[2019-02-03] MEDS: Metoprolol Tartrate 5 MG/5 ML VIAL IVP SCH ×5 (00:17→23:47)
[2019-02-03] MEDS: Lorazepam 2 MG/ML VIAL SLOW IVP PRN (01:02)
[2019-02-03] MEDS ORDERED: Lorazepam 2 MG/ML VIAL SLOW IVP SCH (03:00)
[2019-02-03] MEDS ORDERED: Morphine 2 MG/ML SYRINGE SLOW IVP SCH (03:15)
[2019-02-03] MEDS ORDERED: Sodium Chloride 0.9% 500 ML IV SCH (04:15)
[2019-02-03] MEDS ORDERED: Digoxin 0.5 MG/2 ML AMP SLOW IVP SCH (05:15)
[2019-02-03] MEDS: Dextrose 5 % And 0.9 % NaCl 1,000 ML IV SCH ×2 (05:31→18:21)
[2019-02-03] MEDS: Levalbuterol HCl 0.63 MG/3 ML NEB NEB SCH ×3 (06:59→22:05)
[2019-02-03] MEDS: Ipratropium Bromide 2.5 ml Neb NEB SCH ×3 (07:01→22:04)
[2019-02-03] MEDS ORDERED: Morphine 4 MG/ML VIAL SLOW IVP PRN (08:01)
[2019-02-03] MEDS: Nitroglycerin 0.1mg/Hour PATCH TD SCH (08:54)
[2019-02-03] MEDS: Enoxaparin Sodium 40 MG/0.4 ML SYRINGE SC SCH ×2 (08:54→09:02)
[2019-02-03] MEDS: methylPREDNISolone Sod Succ 40 MG VIAL IVP SCH ×2 (08:54→20:46)
--- NOTE | 2019-02-03 09:39 | PRG ---
DATE OF SERVICE: 02/03/2019 SUBJECTIVE: The patient is somnolent on BiPAP. Apparently, she has been poorly responsive in the last 2 days. She developed AFib RVR last night, was given a dose of digoxin. OBJECTIVE: VITAL SIGNS: Temperature 97.6, pulse 106, blood pressure 159/83, O2 saturation 100% on BiPAP. HEENT: Unremarkable. NECK: No JVD. LUNGS: Poor air movement. CARDIAC: S1 and S2. Irregularly irregular. ABDOMEN: Soft. EXTREMITIES: No edema. LABORATORY DATA: No labs were done today. ASSESSMENT: 1. End-stage chronic obstructive pulmonary disease. 2. Chronic hypoxic hypercapnic respiratory failure. 3. Alzheimer disease/encephalopathy. 4. Atrial fibrillation rapid ventricular response. RECOMMENDATIONS: I would recommend hospice care for this patient. There is no hope for reasonable recovery. I would advocate stopping the BiPAP and giving her morphine and Ativan as needed for comfort. Job ID: [id number]
[2019-02-03 12:48] VITALS: BMI 17.3
[2019-02-03] MEDS: Morphine 2 MG/ML SYRINGE SLOW IVP PRN ×2 (13:19→20:46)
--- NOTE | 2019-02-03 17:23 | PDOC.HOSPP ---
- Subjective Subjective: Seen and examined this AM. Clinically worse. Now on BIPAP to maintain O2 saturations. Family deciding on hospice, understands the terminal nature in the near future. Comfort care measures implemented. - Objective Vital Signs & Weight: Vital Signs (12 hours) Temp Pulse Resp Pulse Ox 02/03/19 16:00 97.1 F L 02/03/19 13:54 83 8 L 100 02/03/19 13:53 83 8 L 100 02/03/19 12:00 97.1 F L 02/03/19 08:00 96.8 F L 100 02/03/19 07:01 101 H 24 H 100 02/03/19 06:59 101 H 14 100 02/03/19 05:29 143 H Weight Admit Weight 88 lb 6.486 oz Weight 91 lb 11.397 oz Most Recent Monitor Data Heart Rate from ECG 89 NIBP 148/73 NIBP BP-Mean 98 Respiration from ECG 4 SpO2 100 I&O: 02/02/19 02/03/19 02/04/19 06:59 06:59 06:59 Intake Total 1507 2284 Output Total 475 500 Balance 1032 1784 Result Diagrams: 02/02/19 05:44 02/02/19 05:44 Hospitalist ROS - Review of Systems ROS unobtainable: due to mental status - Medication Medications: Active Medications Generic Name Dose Route Start Last Admin Trade Name Freq PRN Reason Stop Dose Admin Clonidine 0.2 mg 02/02/19 09:00 02/02/19 09:47 Bohcbepm-Fye-2 TD 0.2 mg Q7DAYS HENOK Administration Enoxaparin Sodium 40 mg 02/02/19 09:00 02/03/19 09:02 Lovenox SC Not Given 899 HENOK Fentanyl 12 mcg 02/02/19 14:00 02/02/19 14:48 Duragesic TD 12 mcg Q3D HENOK Administration Hydralazine HCl 10 mg 01/31/19 16:46 02/01/19 20:13 Apresoline SLOW IVP 10 mg Q4H PRN Administration SBP > 170 or DBP > 100 Piperacillin Sod/Tazobactam 100 mls @ 200 mls/hr 02/01/19 18:00 02/03/19 13: 19 Sod 3.375 gm/ Sodium Chloride IVPB 100 mls Q6HR HENOK Administration Dextrose/Sodium Chloride 1,000 mls @ 60 mls/hr 02/01/19 16:38 02/03/19 05:31 D5 0.9% Ns IV 1,000 mls .[id number] HENOK Administration Ipratropium [place] 2.5 ml 01/31/19 15:00 02/03/19 13:53 Atrovent NEB 2.5 ml [id number] HENOK Administration Levalbuterol HCl 0.63 mg 01/31/19 15:00 02/03/19 13:54 Xopenex NEB 0.63 mg [id number] HENOK Administration Lorazepam 0.5 mg 02/01/19 12:01 02/03/19 01:02 Ativan SLOW IVP 0.5 mg Q6H PRN Administration Anxiety/Agitation Methylprednisolone Sodium Succinate 40 mg 01/31/19 21:00 02/03/19 08:54 Solu-Medrol IVP 40 mg BID HENOK Administration Metoprolol Tartrate 5 mg 01/31/19 17:00 02/03/19 13:18 Lopressor IVP 5 mg 0500,1100,1700,2300 HENOK Administration Morphine Sulfate 2 mg 02/03/19 08:01 02/03/19 13:19 Morphine SLOW IVP 2 mg Q1H PRN Administration MILD-MOD dyspnea Nitroglycerin 1 patch 02/02/19 09:00 02/03/19 08:54 Nitro-Dur 0.1mg/Hr Patch TD 1 patch DAILY HENOK Administration Sodium Chloride 10 ml 01/31/19 09:00 02/03/19 08:54 Flush - Normal Saline IVF 10 ml Q12HR HENOK Administration Sodium Chloride 10 ml 01/30/19 21:55 02/02/19 11:40 Flush - Normal Saline IVF 10 ml PRN PRN Administration Saline Flush - Exam General Appearance: ill appearing Eye: PERRL ENT: no oropharyngeal lesions, dry oral mucosa Neck: supple, no lymphadenopathy Heart: no murmur, no gallops Respiratory: no rales, rhonchi, tachypneic, wheezes Gastrointestinal: soft, non-tender, non-distended, normal bowel sounds, no guarding, no rigidity Extremities: 1+ LE edema Skin: no lesions, no rashes Neurological: cranial nerve grossly intact, no focal deficits Musculoskeletal: generalized weakness Psychiatric: not oriented, lethargic Hosp A/P (1) COPD exacerbation Code(s): J44.1 - CHRONIC OBSTRUCTIVE PULMONARY DISEASE W (ACUTE) EXACERBATION Status: Acute (2) CAP (community acquired pneumonia) Code(s): J18.9 - PNEUMONIA, UNSPECIFIED ORGANISM Status: Acute (3) Acute respiratory failure with hypoxia Code(s): J96.01 - ACUTE RESPIRATORY FAILURE WITH HYPOXIA Status: Acute (4) Type 2 PA (myocardial infarction) Code(s): I21.A1 - MYOCARDIAL INFARCTION TYPE 2 Status: Acute (5) MAURO (acute kidney injury) Code(s): N17.9 - ACUTE KIDNEY FAILURE, UNSPECIFIED Status: Resolved (6) COPD (chronic obstructive pulmonary disease) Status: Chronic Qualifiers: COPD type: unspecified COPD Qualified Code(s): J44.9 - Chronic obstructive pulmonary disease, unspecified (7) Dementia Code(s): F03.90 - UNSPECIFIED DEMENTIA WITHOUT BEHAVIORAL DISTURBANCE Status: Chronic Qualifiers: Dementia type: Alzheimer's disease Alzheimer's disease onset: unspecified onset Dementia behavioral disturbance: without behavioral disturbance Qualified Code(s): G30.9 - Alzheimer's disease, unspecified; F02.80 - Dementia in other diseases classified elsewhere without behavioral disturbance (8) Dyslipidemia Code(s): E78.5 - HYPERLIPIDEMIA, UNSPECIFIED Status: Chronic (9) History of stroke Code(s): Z86.73 - PRSNL HX OF TIA (TIA), AND CEREB INFRC W/O RESID DEFICITS Status: Chronic (10) Hypertension Code(s): I10 - ESSENTIAL (PRIMARY) HYPERTENSION Status: Chronic Qualifiers: Hypertension type: essential hypertension Qualified Code(s): I10 - Essential (primary) hypertension (11) Tobacco abuse Code(s): Z72.0 - TOBACCO USE Status: Chronic - Plan Plan: IMCU, pending D/c to hospice Comfort care measures Fentanyl patch Morphine as needed Ativan as needed palliative care consultation, recommendations appreciated pulmonology consultation, recommendations appreciated cardiology consultation, recommendations appreciate Will d/c IV steroids, antibiotics, and inhaled nebulizer therapy despite maximal medical therapy the short-term prognosis for this patient is poor the patient has a do not sustained and do not intubate in place elevated troponins type 2 myocardial infarction
[2019-02-04] MEDS: Morphine 2 MG/ML SYRINGE SLOW IVP PRN (02:00)
[2019-02-04] MEDS: Dextrose 5 % And 0.9 % NaCl 1,000 ML IV SCH (02:00)
[2019-02-04] MEDS: Piperacillin/Tazobactam 3.375 GM in Sodium Chloride 0.9% 100 ML IVPB SCH ×2 (05:39→12:21)
[2019-02-04] MEDS: Metoprolol Tartrate 5 MG/5 ML VIAL IVP SCH ×2 (05:43→12:20)
[2019-02-04] MEDS: Levalbuterol HCl 0.63 MG/3 ML NEB NEB SCH (08:05)
[2019-02-04] MEDS: Ipratropium Bromide 2.5 ml Neb NEB SCH (08:06)
[2019-02-04] MEDS: Enoxaparin Sodium 40 MG/0.4 ML SYRINGE SC SCH (09:34)
--- NOTE | 2019-02-04 10:03 | PRG ---
DATE OF SERVICE: 02/04/2019 SUBJECTIVE: The patient will open her eyes, but is more or less unresponsive otherwise. OBJECTIVE: VITAL SIGNS: Temperature 97.4, pulse 95, blood pressure 177/83, O2 saturation 100%. HEENT: Unremarkable. NECK: No JVD. LUNGS: Poor air movement. CARDIAC: S1, S2. Regular. ABDOMEN: Soft. EXTREMITIES: Severe muscle wasting. No edema. ASSESSMENT: 1. End-stage Chronic obstructive pulmonary disease. 2. Chronic hypoxic and hypercapnic respiratory failure. 3. Alzheimer disease. 4. Atrial fibrillation. PLAN: I would agree with stopping BiPAP and is doing hospice measures. There is no hope for survival. Job ID: [id number]
[2019-02-04 11:14] VITALS: TEMP 97.2
[2019-02-04] MEDS: methylPREDNISolone Sod Succ 40 MG VIAL IVP SCH (12:20)
[2019-02-04] MEDS: Nitroglycerin 0.1mg/Hour PATCH TD SCH (12:20)
--- NOTE | 2019-02-04 13:33 | DIS ---
DATE OF ADMISSION: 01/30/2019 DATE OF DISCHARGE: 02/04/2019 PRIMARY CARE PHYSICIAN: Dr. Puma Lewis. DISCHARGE DISPOSITION: Inpatient hospice for comfort care. PRIMARY DISCHARGE DIAGNOSES: 1. Yulgd-lu-fopccgu respiratory failure with hypoxia and hypercapnia. 2. Acute metabolic encephalopathy. 3. Aspiration pneumonia. 4. Sepsis with acute organ dysfunction. 5. Demand ischemia of myocardium type 2 myocardial infarction secondary to sepsis. 6. End-stage chronic obstructive pulmonary disease with exacerbation. 7. acute kidney failure. CONTRIBUTING DIAGNOSES: 1. Protein calorie malnutrition. 2. End-stage chronic obstructive pulmonary disease. 3. Anxiety and depression. 4. Chronic anemia. 5. Chronic kidney disease, stage 2. PRIMARY PROCEDURE/OPERATION: None. RADIOLOGICAL INVESTIGATION: Chest x-ray on admission showed no acute process. CT brain negative for any acute intracranial process. Chest x-ray with CT scan showed no acute process aspirated materially within the trachea, severe emphysema. Echocardiography showed EF 60%. Carotid Doppler negative for any stenosis. SIGNIFICANT LABORATORY DATA: WBC 19.6, hemoglobin 11.0, and platelets are 284. INR 1.1. Sodium 141 and creatinine 0.68. Troponin 0.490. DISCHARGE MEDICATIONS: The patient is discharged to inpatient hospice facility for comfort care only, so medication will be written by Hospice Team after discharge. CONTRAINDICATION: None because of comfort care. INPATIENT METAL MOULDER: Dr. Gamboa was following while in hospital as well as Cardiology Team was following while in hospital. TEST RESULTS PENDING ON DISCHARGE: None. ALLERGIES: ALBUTEROL, BUDESONIDE, AND FORMOTEROL. DISCHARGE PLAN: Posthospital, the patient is discharged to inpatient hospice for comfort care. HOSPITAL COURSE: An 83-year-old female with above-mentioned medical problem, who was admitted by Dr. Boo. Please see his H and P for further details. The patient was admitted for increasing shortness of breath, and increasing confusion. Initially on admission, she was meeting sepsis criteria. She had acute kidney failure as well as wkbey-po-nziveei respiratory failure with hypoxia and hypercapnia. She had demand ischemia type 2 VA secondary to COPD exacerbation as well as sepsis. The patient's CT brain was negative. Chest x-ray was unremarkable, but CT angio showed aspiration material in trachea. Echocardiography was also unremarkable and carotid Doppler was unremarkable. Cardiology and Pulmonary group were following this patient while in hospital. She remained in IMCU. She was requiring BiPAP. The patient's condition did not improve significantly over last four days with medical and maximum treatment and the patient has end-stage COPD and that is why we discussed with the family member about goal of care and family decided to keep her on hospice for comfort care only. The patient was evaluated for inpatient hospice and accepted for inpatient hospice care. Today, we have put discharge order and the patient will be now onwards taken care by hospice team physician. I have seen and examined the patient at bedside today and plan of care discussed with the patient's . The patient is not able to provide any kind history. She was on face mask oxygen. PHYSICAL EXAMINATION: VITAL SIGNS: Currently, temperature 97.2, pulse rate 98, blood pressure 162/68, saturation 100% with oxygen. GENERAL: Chronically ill. HEENT: Head; normocephalic and atraumatic. Eyes; pupils are round and reactive to light. NECK: Supple. LUNGS: Obvious rhonchi heard on both side. CARDIAC: S1 and S2, regular. Tachycardia. ABDOMEN: Soft and benign. EXTREMITIES: No edema. The patient's prognosis is extremely poor. Her life expectancy, expecting less than seven days. TIME SPENT: Total time spent on discharge day, 31 minutes. Job ID: [id number]
--- NOTE | 2019-02-04 13:43 | PQF ---
DATE: 02-04-19: ATTN: DR. SANCHO HARDWICK Please exercise your independent, professional judgment in responding to the clarification form. Clinical indicators are provided on the bottom of this form for your review Please check appropriate box(s): [ x ] Encephalopathy: Type: [ x ] Acute [ ] Subacute [ ] Chronic Etiology: [ x] Metabolic [ ] Toxic [ x ] Hypoxic [ ] Septic [ ] Other (please specify) [ ] Transient Alteration of Awareness [ ] Other diagnosis [ ] Unable to determine In addition, please specify: Present on Admission (POA): [ x ] Yes [ ] No [ ] Unable to determine For continuity of documentation, please document condition throughout progress notes and discharge summary. Thank You. CLINICAL INDICATORS - SIGNS / SYMPTOMS / LABS H&P: 01-30-19: PATIENT HAS DEMENTIA AND IS CONFUSED H&P 01-30-19: SEVERE ENCEPHALOPATHY, LIKELY SECONDARY TO DEHYDRATION AND PNEUMONIA. WE WILL TREAT THE UNDERLYING CONDITION. ASPIRATION PNEUMONIA, SEPSIS WITH ORGAN DYSFUNCTION, ACUTE RESPIRATORY ACIDOSIS, HYPONATREMIA, MAURO RISK FACTORS: H&P 01-30-19: SEVERE ENCEPHALOPATHY, LIKELY SECONDARY TO DEHYDRATION AND PNEUMONIA. WE WILL TREAT THE UNDERLYING CONDITION. ASPIRATION PNEUMONIA, SEPSIS WITH ORGAN DYSFUNCTION, ACUTE RESPIRATORY ACIDOSIS, HYPONATREMIA, MAURO TREATMENTS: ER NOTES 01-30-19: IVF NS MAR 02-01-19: ZOSYN IV (This form is maintained as a part of the permanent medical record) 2014 [employer] All Rights Reserved EMELY [email or web address] Office: [phone] TREVOR
== END 2019-02-04 12:51 | disposition hospice, inpatient (51) | DRG 871 ==
LOC: ERS 15:44 → IMCU/EMU 20:03
PROVIDERS: ADMIT Internal Medicine; ATTEND Internal Medicine
PROC: 5A09457 Assistance with Respiratory Ventilation, 24-96 Consecutive Hours, Continuous Positive Airway Pressure (ICD-10-PCS; principal; 2019-01-30)
DX: A41.9 Sepsis, unspecified organism (principal); J96.21 Acute and chronic respiratory failure with hypoxia; J96.22 Acute and chronic respiratory failure with hypercapnia; G93.41 Metabolic encephalopathy; J69.0 Pneumonitis due to inhalation of food and vomit; I21.A1 Myocardial infarction type 2; J15.9 Unspecified bacterial pneumonia; N17.9 Acute kidney failure, unspecified; Z68.1 Body mass index [BMI] 19.9 or less, adult; E87.1 Hypo-osmolality and hyponatremia; E44.0 Moderate protein-calorie malnutrition; I69.951 Hemiplegia and hemiparesis following unspecified cerebrovascular disease affecting right dominant side; Z66 Do not resuscitate; F41.9 Anxiety disorder, unspecified; F32.9 Major depressive disorder, single episode, unspecified; D63.1 Anemia in chronic kidney disease; N18.2 Chronic kidney disease, stage 2 (mild); Z51.5 Encounter for palliative care; G30.9 Alzheimer's disease, unspecified; F02.80 Dementia in other diseases classified elsewhere, unspecified severity, without behavioral disturbance, psychotic disturbance, mood disturbance, and anxiety; H26.8 Other specified cataract; I45.10 Unspecified right bundle-branch block; J43.9 Emphysema, unspecified; R65.20 Severe sepsis without septic shock; E78.00 Pure hypercholesterolemia, unspecified; F17.210 Nicotine dependence, cigarettes, uncomplicated; I48.91 Unspecified atrial fibrillation; R13.12 Dysphagia, oropharyngeal phase; G25.81 Restless legs syndrome; R29.6 Repeated falls; I73.9 Peripheral vascular disease, unspecified; E78.5 Hyperlipidemia, unspecified; Z88.8 Allergy status to other drugs, medicaments and biological substances; Z90.710 Acquired absence of both cervix and uterus; Z79.899 Other long term (current) drug therapy; Z85.42 Personal history of malignant neoplasm of other parts of uterus; Z85.828 Personal history of other malignant neoplasm of skin
CPT/HCPCS: 29125; 36415; 70450; 71045; 71275; 72170; 80048; 80053; 80069; 80202; 81001; 82553; 82805; 83735; 83880; 84100; 84484; 85025; 85610; 85730; 93005; 93306; 93880; 94640; 94660; 96360; 96361; G0378; G0390; J0131; J0360; J1160; J1650; J2060; J2270; J2543; J2920; J3370; J3490; J7050; J7614; J7620; Q9966

== ENCOUNTER 2019-02-04 12:51 | Inpatient (IN) | payer OTHER ==
[2019-02-04] MEDS ORDERED: Ondansetron PF 4 MG/2 ML Vial IVP PRN (16:06)
[2019-02-04] MEDS ORDERED: Scopolamine 1.5 mg/72 hour Patch TOP PRN (16:06)
[2019-02-04] MEDS: Morphine 2 MG/ML SYRINGE SLOW IVP PRN ×2 (19:05→21:23)
[2019-02-04] MEDS: Lorazepam 2 MG/ML VIAL SLOW IVP PRN (22:47)
[2019-02-05] MEDS: Morphine 2 MG/ML SYRINGE SLOW IVP PRN ×5 (01:15→14:53)
[2019-02-05] MEDS ORDERED: Morphine 10 MG/0.5 ML ORAL SYRINGE SL PRN ×2 (02:47→11:53)
[2019-02-05] MEDS: Lorazepam 2 MG/ML VIAL SLOW IVP PRN ×3 (06:23→21:04)
[2019-02-05] MEDS ORDERED: Lorazepam 1 MG TAB SL PRN (11:54)
[2019-02-06] MEDS: Lorazepam 2 MG/ML VIAL SLOW IVP PRN (10:46)
[2019-02-06] MEDS: Morphine 2 MG/ML SYRINGE SLOW IVP PRN (11:46)
[2019-02-07] MEDS: Morphine 2 MG/ML SYRINGE SLOW IVP PRN ×2 (09:16→14:59)
[2019-02-07] MEDS: Lorazepam 2 MG/ML VIAL SLOW IVP PRN ×3 (09:17→19:23)
[2019-02-08] MEDS: Morphine 2 MG/ML SYRINGE SLOW IVP PRN ×3 (03:02→17:22)
[2019-02-08] MEDS ORDERED: Lorazepam 2 MG/ML VIAL SLOW IVP SCH (18:00)
[2019-02-08] MEDS: Morphine 2 MG/ML SYRINGE SLOW IVP SCH (20:36)
[2019-02-08] MEDS: Morphine 10 MG/0.5 ML ORAL SYRINGE PO SCH (20:37)
[2019-02-08] MEDS ORDERED: Lorazepam 1 MG TAB PO SCH (21:00)
[2019-02-08] MEDS: Lorazepam 2 MG/ML VIAL SLOW IVP SCH (23:20)
[2019-02-08] MEDS: Lorazepam 1 MG TAB PO SCH (23:25)
[2019-02-09] MEDS: Morphine 10 MG/0.5 ML ORAL SYRINGE PO SCH ×6 (03:13→20:19)
[2019-02-09] MEDS: Morphine 2 MG/ML SYRINGE SLOW IVP SCH ×6 (03:13→20:29)
[2019-02-09] MEDS: Lorazepam 2 MG/ML VIAL SLOW IVP SCH ×5 (03:42→20:30)
[2019-02-09] MEDS: Lorazepam 1 MG TAB PO SCH ×5 (03:43→20:18)
[2019-02-10] MEDS: Lorazepam 2 MG/ML VIAL SLOW IVP SCH ×4 (03:04→12:58)
[2019-02-10] MEDS: Lorazepam 1 MG TAB PO SCH ×4 (03:05→12:58)
[2019-02-10] MEDS: Morphine 2 MG/ML SYRINGE SLOW IVP SCH ×4 (03:06→13:27)
[2019-02-10] MEDS: Morphine 10 MG/0.5 ML ORAL SYRINGE PO SCH ×4 (03:07→13:26)
[2019-02-10 07:46] VITALS: BP 140/65
[2019-02-10 11:36] VITALS: TEMP 99.5
== END 2019-02-10 13:39 | DRG 951 ==
LOC: IMCU/EMU 12:51 → ONC 20:01
PROVIDERS: ADMIT Family Medicine; ATTEND Family Medicine
DX: Z51.5 Encounter for palliative care (principal); G93.41 Metabolic encephalopathy; J96.22 Acute and chronic respiratory failure with hypercapnia; J96.21 Acute and chronic respiratory failure with hypoxia; J69.0 Pneumonitis due to inhalation of food and vomit; A41.9 Sepsis, unspecified organism; I21.A1 Myocardial infarction type 2; N17.9 Acute kidney failure, unspecified; E46 Unspecified protein-calorie malnutrition; J44.1 Chronic obstructive pulmonary disease with (acute) exacerbation; E87.1 Hypo-osmolality and hyponatremia; E87.2 Acidosis; F41.9 Anxiety disorder, unspecified; F32.9 Major depressive disorder, single episode, unspecified; I12.9 Hypertensive chronic kidney disease with stage 1 through stage 4 chronic kidney disease, or unspecified chronic kidney disease; N18.2 Chronic kidney disease, stage 2 (mild); E86.0 Dehydration
CPT/HCPCS: J2060; J2270